=== PATIENT | male | born 1935 | race Caucasian/White ===

== ENCOUNTER 2024-05-18 18:34 | Inpatient (IN) | payer MEDICARE, MEDICAID, SELFPAY ==
[2024-05-18 18:34] VITALS: BP 139/74; PULSE 102; RESP 18; TEMP 37; O2SAT 94; BMI 25.0
--- NOTE | 2024-05-18 18:34 | XRR_ITS ---
PROCEDURE INFORMATION: Exam: XR Chest Exam date and time: 05/18/2024 7:14 PM Age: 89 years old Clinical indication: Shortness of breath and other: HTN; Additional info: CVA HTN TECHNIQUE: Imaging protocol: Radiologic exam of the chest. Views: 1 view. COMPARISON: No relevant prior studies available. FINDINGS: Lungs: The lungs are relatively clear. Pleural spaces: Unremarkable. No pleural effusion. No pneumothorax. Heart/Mediastinum: Calcified mediastinal and hilar lymph nodes. Bones/joints: Unremarkable. XR/XR chest 1V portable [id number] IMPRESSION: As above.
--- NOTE | 2024-05-18 18:34 | CTR_ITS ---
PROCEDURE INFORMATION: Exam: CT Head Without Contrast Exam date and time: 05/18/2024 8:06 PM Age: 89 years old Clinical indication: Stroke-like symptoms; Generalized weakness; Additional info: Symptoms of acute stroke, 24+ hrs old TECHNIQUE: Imaging protocol: Computed tomography of the head without contrast. Radiation optimization: All CT scans at this facility use at least one of these dose optimization techniques: automated exposure control; mA and/or kV adjustment per patient size (includes targeted exams where dose is matched to clinical indication); or iterative reconstruction. Other technique: STROKE PROTOCOL was implemented. COMPARISON: CT angio headneck* [id number] 05/18/2024 8:06 PM RADIATION DOSE METRICS: Total DLP (mGy-cm): 1180.7 FINDINGS: Brain: No hemorrhage. No edema. Moderate diffuse cerebral atrophy and sequela of chronic small vessel ischemic disease. Old lacunar infarcts noted in the basal ganglia. Old infarcts also noted in the right parietal and left frontal lobes. No mass effect. Cerebral ventricles: No ventriculomegaly. Paranasal sinuses: Visualized sinuses are unremarkable. No fluid levels. Mastoid air cells: Visualized mastoid air cells are well aerated. Bones: Unremarkable. No acute fracture. Soft tissues: Unremarkable. CT/CT head thrombolytic [id number] IMPRESSION: No acute intracranial abnormality. ASSESSMENT: ASPECTS ([place] Stroke Program Early CT Score) is 10.
--- NOTE | 2024-05-18 18:34 | CTR_ITS ---
PROCEDURE INFORMATION: Exam: CTA Head With Contrast, Arteriography Exam date and time: 05/18/2024 8:06 PM Age: 89 years old Clinical indication: Weakness; Additional info: CVA right sided deficit TECHNIQUE: Imaging protocol: Computed tomographic angiography of the head with contrast. Exam focused on the arteries. 3D rendering (Not supervised by radiologist): MIP and/or 3D reconstructed images were created by the technologist. Radiation optimization: All CT scans at this facility use at least one of these dose optimization techniques: automated exposure control; mA and/or kV adjustment per patient size (includes targeted exams where dose is matched to clinical indication); or iterative reconstruction. Contrast material: OMNIPAQUE 350; Contrast volume: 100 ml; Contrast route: INTRAVENOUS (IV); COMPARISON: CT head thrombolytic [id number] 05/18/2024 8:06 PM RADIATION DOSE METRICS: Total DLP (mGy-cm): 359 FINDINGS: ANTERIOR CIRCULATION: Right internal carotid artery: 50-75% atherosclerotic narrowing of the right internal carotid artery just before the carotid canal. The remaining right-sided internal carotid artery is patent. Right middle cerebral artery: No occlusion or significant stenosis. No aneurysm. Right anterior cerebral artery: The anterior circulation arises off the proximal M1 segment of the left MCA. There is appearance lack of the A3 segment of the left anterior cerebral artery due to variant anatomy versus occlusion. This may correspond to an area of hypoattenuation in the left medial frontal lobe. The right A3 segment of the anterior cerebral artery is dominant. The anterior cerebral artery is otherwise patent throughout their course. Left internal carotid artery: Intracranial segment is patent with no significant stenosis. No aneurysm. Left middle cerebral artery: The left middle cerebral artery is patent. Left anterior cerebral artery: Please see right anterior cerebral artery section. POSTERIOR CIRCULATION: Right vertebral artery: Please see the CT angio neck report. Left vertebral artery: Please see the CT angio neck report. Basilar artery: No occlusion or significant stenosis. No aneurysm. Right posterior cerebral artery: No occlusion or significant stenosis. No aneurysm. Left posterior cerebral artery: No occlusion or significant stenosis. No aneurysm. Please see same-day noncontrast CT head examination for noncontrast examination findings. PROCEDURE INFORMATION: Exam: CTA Neck With Contrast Exam date and time: 05/18/2024 8:06 PM Age: 89 years old Clinical indication: Weakness; Additional info: CVA right sided deficit TECHNIQUE: Imaging protocol: Computed tomographic angiography of the neck with contrast. Exam focused on the cervical segments of the vasculature. 3D rendering (Not supervised by radiologist): MIP and/or 3D reconstructed images were created by the technologist. Radiation optimization: All CT scans at this facility use at least one of these dose optimization techniques: automated exposure control; mA and/or kV adjustment per patient size (includes targeted exams where dose is matched to clinical indication); or iterative reconstruction. Contrast material: OMNIPAQUE 350; Contrast volume: 100 ml; Contrast route: INTRAVENOUS (IV); COMPARISON: CR (CHEST, ) 05/18/2024 7:14 PM RADIATION DOSE METRICS: Total DLP (mGy-cm): 359 FINDINGS: Right common carotid artery: No stenosis. No dissection or occlusion. Right internal carotid artery: 50-75% atherosclerotic narrowing of the right internal carotid artery just before the carotid canal. The remaining right-sided internal carotid artery is patent. Right external carotid artery: No occlusion or stenosis of the origin. Left common carotid artery: No stenosis. No dissection or occlusion. Left internal carotid artery: No stenosis of the extracranial segment. No dissection or occlusion. Left external carotid artery: No occlusion or stenosis of the origin. Right vertebral artery: The right vertebral artery arises off the subclavian. High-grade atherosclerotic narrowing of the origin of the right vertebral artery. Approximately 50% atherosclerotic narrowing of the V4 segment of the right vertebral artery. The right vertebral artery is otherwise patent throughout its course. Left vertebral artery: The left vertebral artery arises of the subclavian. Greater than 75% atherosclerotic narrowing of the origin of the left vertebral artery. Additional 50-75% atherosclerotic narrowing of the proximal V1 segment of the left vertebral artery. 50-75% atherosclerotic narrowing of the V4 segment of the left vertebral artery. The remaining left vertebral artery is patent throughout its course. Soft tissues: Normal. No significant soft tissue swelling. Bones/joints: Multilevel degenerative changes of the cervical spine. Lungs: Emphysema at the lung apices. Other findings: Cavernous carotid calcifications. CT/CT angio headneck* [id number] IMPRESSION: Abrupt cutoff of the left A2 segment of the anterior cerebral artery may relate to a variant anatomy versus occlusion. This may correspond to an area of hypoattenuation in the medial left frontal lobe. Consider follow up with MRI to evaluate the possibility of acute/subacute ischemia. 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 Remaining CT angio of the neck is patent without high-grade stenosis or occlusion. REFERENCES: NASCET CRITERIA. The degree of stenosis in the cervical segment of the internal carotid artery is based on NASCET criteria. Normal is no stenosis. Mild is less than 50% stenosis. Moderate is 50-69% stenosis. Severe is 70% to 99% stenosis. Total occlusion is no detectable patent lumen.
--- NOTE | 2024-05-18 18:38 | ED_ITS ---
HPI - Neuro Symptoms/Deficit 2 General: Chief Complaint: Neuro Symptoms/Deficit Stated Complaint: Stroke like symptoms Time Seen by Provider: 05/18/24 18:34 Source: EMS Mode of arrival: EMS Limitations: altered mental status History of Present Illness: Patient brought in by EMS from home with complaints of word salad speech right- sided facial droop and right-sided deficit with last known well being greater than 24 hours in nature. They think last known well was approximately 1000 - 1200 yesterday. Patient does have limited conversational ability. He can answer some yes/no questions but other yes/no questions he acts like he cannot think of the right answer, just looks at you, or just says words that do not make sense. Patient does know his first and last name. EMS stated patient should take metoprolol but he is not compliant. When EMS arrived he was in A- fib with RVR at a rate of about 160 bpm. He was given a bolus dose of approximately 17 mg of IV Cardizem and that brought his pulse down to the 80s for EMS. Upon arrival in the ER his pulse was 102. Patient has never been in her system before, we have no records of any kind. Review of Systems 2 General: Reports: ROS unobtainable due to medical condition and ROS unobtainable due to mental status NIH stroke score 2 NIHSS: Level Of Consciousness - 1a: 0 (Alert to self only) Level Of Consciousness Questions - 1b: One Correct (Knows patient's first and last name) Level Of Consciousness Commands - 1c: One Correct (Will make a fist with the left hand ) Best Gaze - 2: Normal (Unable to assess) Visual Gil - 3: No Visual Loss Facial Palsy - 4: Minor Paralysis (Minor right-sided facial droop) Motor Arm Right - 5: No Movement Motor Arm Left - 5: No Drift M otor Leg Right - 6: No Movement Motor Leg Left - 6: No Effort Against [place] Limb Ataxia - 7: Absent (Unable to assess patient unable to move right leg or follow commands with left leg) Sensory - 8: Normal (Unable to assess patient will not state yes or no if things feel the same) Best Language - 9: M ild/Moderate Aphasia Dysarthia - 10: Mild/Moderate Dysarthia Extinction And Inattention - 11: 0 (Unable to assess patient unable to follow most commands) Score: Total Score: 16 Physical Exam 2 Const: COMMON NORMALS: no acute distress, average body habitus, patient oriented x3 (Oriented to person only), no limitations, healthy appearing, alert and well nourished HENMT: COMMON NORMALS: normocephalic, atraumatic, hearing grossly normal bilaterally, external ears normal, Normal external nose present, moist oral mucous membranes and oropharynx normal HEAD & SCALP: normocephalic and atraumatic NOSE: Normal external nose present EXTERNAL EAR: Yes external ears normal Eye: COMMON NORMALS: Equal, round and reactive pupils present, EOMs intact bilaterally, conjunctivae normal and no scleral icterus CONJUNCTIVA: Yes conjunctivae normal PUPIL: Yes Equal, round and reactive pupils present Neck/C-Spine: COMMON NORMALS: full ROM, no lymphadenopathy, supple, no meningeal signs, no JVD and Thyroid normal THYROID: Thyroid normal Chest: COMMONS NORMALS: normal inspection of the chest and normal palpation of entire chest wall Resp: COMMON NORMALS: normal respiratory effort, No retractions, No use of accessory muscles and clear to auscultation bilaterally AUSCULTATION: clear to auscultation bilaterally Cardio: COMMON NORMALS: no JVD, regular rate, regular rhythm, S1 normal heart sound present, S2 normal heart sound present, No gallops present (Cardio), No clicks present (Cardio), No murmurs present (Cardio) and No rub (Cardio) R ATE: regular rate RHYTHM: regular rhythm HEART SOUNDS: S1 normal heart sound present and S2 normal heart sound present GI: COMMON NORMALS: Normal to inspection, nondistended, normoactive bowel sounds present, Soft to palpation, non-tender, No hepatosplenomegaly present and no masses PALPATION: Yes Soft to palpation and Yes No hepatosplenomegaly present Extremity: OTHER: Able to hold of left upper extremity against gravity, able to move left lower extremity but not hold it up against gravity, unable to move right upper or lower extremity. Neuro: COMMON NORMALS: patient oriented x3 (Oriented to person only) S ENSORIUM/ORIENTATION: Yes alert MENINGEAL SIGNS: Yes no meningeal signs Course 2 Vital Signs: Vital signs: Vital Signs Temperature 98.6 F 05/18/24 18:34 Pulse Rate 120 H 05/18/24 22:57 Respiratory Rate 23 H 05/18/24 22:57 Blood Pressure 136/106 05/18/24 22:57 Pulse Oximetry 97 03/26/25 22:57 Oxygen Delivery Me thod Room Air 05/18/24 22:57 MDM - Neuro Symptoms/Deficit Medical Decision Making Patient presents to the ER by EMS with obvious right dense hemiparesis right facial droop and speech issues. He was given at least a 16 NIH although part of it is due to him not being able to follow commands sometimes or answer questions appropriately. Stroke workup was obtained, head CT was negative, head CTA showed possible occlusion versus variant anatomy, Dr. Sanchez was consulted and agreed to place the patient in observation however he did want us to talk with [facility] neurology. [facility] neurology was called and they will be giving us a call back.Dr MONTOYA teleneurology called back I reviewed this case with her. She says the only segment noted to be occluded or an anatomical variant is a very small segment that is not conducive to intervention. Patient is also not a candidate for intervention since has been more than 24 hours. She would not recommend transfer and would recommend admission here just for further workup. Lab Data 05/18/24 18:44 05/18/24 18:44 Radiology Impressions Chest X-Ray 05/18/24 18:34 IMPRESSION: As above. Head CT 05/18/24 18:34 IMPRESSION: No acute intracranial abnormality. ASSESSMENT: ASPECTS ([place] Stroke Program Early CT Score) is 10. ADDENDUM: 05/18/242042 Chico Coleman acknowledged receipt of report at 05/18/2024 8:41 PM CDT. Head/Neck CTA 05/18/24 18:34 IMPRESSION: Abrupt cutoff of the left A2 segment of the anterior cerebral artery may relate to a variant anatomy versus occlusion. This may correspond to an area of hypoattenuation in the medial left frontal lobe. Consider follow up with MRI to evaluate the possibility of acute/subacute ischemia. 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 Remaining CT angio of the neck is patent without high-grade stenosis or occlusion. REFERENCES: NASCET CRITERIA. The degree of stenosis in the cervical segment of the internal carotid artery is based on NASCET criteria. Normal is no stenosis. Mild is less than 50% stenosis. Moderate is 50-69% stenosis. Severe is 70% to 99% stenosis. Total occlusion is no detectable patent lumen. ADDENDUM: 05/18/242120 THIS REPORT CONTAINS FINDINGS THAT MAY BE CRITICAL TO PATIENT CARE. The findings were verbally communicated via telephone conference with Chico Coleman at 9:19 PM CDT on 05/18/2024. The findings were acknowledged and understood. Laboratory Results WBC 9.81 10^3/uL (3.29-11.43) 05/18/24 18:44 RBC 5.69 10^6/uL (3.85-5.65) H 05/18/24 18:44 Hgb 16.40 g/dL (11.27-16.99) 05/18/24 18:44 Hct 51.1 % (37-53) 05/18/24 18:44 MCV 89.8 fl (82-101) 05/18/24 18:44 MCH 28.8 pg (27-33) 05/18/24 18:44 MCHC 32.1 g/dL (30-55) 05/18/24 18:44 RDW 13.9 % (12.1-15.1) 05/18/24 18:44 Plt Count 310 10^3/cmm (157-399) 05/18/24 18:44 MPV 10.0 fL (7.4-10.4) 05/18/24 18:44 Neut % (Auto) 81.7 % 05/18/24 18:44 Lymph % (Auto) 12.4 % 05/18/24 18:44 [place] % (Auto) 5.1 % 05/18/24 18:44 Eos % (Auto) 0.2 % 05/18/24 18:44 Baso % (Auto) 0.3 % 05/18/24 18:44 Neut # (Auto) 8.01 10^3/uL (1.8-7.7) H 05/18/24 18:44 Lymph # (Auto) 1.2 10^3/uL (0.8-4.8) 05/18/24 18:44 [place] # (Auto) 0.5 10^3/uL (0.2-0.9) 05/18/24 18:44 Eos # (Auto) 0.0 10^3/uL (0.0-0.8) 05/18/24 18:44 Baso # (Auto) 0.0 10^3/uL (0.0-0.1) 05/18/24 18:44 Nucleated RBC % (auto) 0 % 05/18/24 18:44 Nucleated RBCs # 0.0 /100WBC 05/18/24 18:44 PT 15.00 SECONDS (12.1-14.9) H 05/18/24 18:44 INR 1.10 (0.8-1.2) 05/18/24 18:44 APTT 31.0 SECONDS (23.9-36.7) 05/18/24 18:44 Sodium 139 mmol/L (136-145) 05/18/24 18:44 Potassium 4.7 mmol/L (3.5-5.1) 05/18/24 18:44 Chloride 103 mmol/L (98-107) 05/18/24 18:44 Carbon Dioxide 21 mmol/L (22-29) L 05/18/24 18:44 Anion Gap 19.7 (5-19) H 05/18/24 18:44 BUN 31 mg/dL (8-23) H 05/18/24 18:44 Creatinine 1.3 mg/dL (0.7-1.2) H 05/18/24 18:44 GFR Calculation Not Reportable 05/18/24 18:44 Glucose 160 mg/dL (65-115) H 05/18/24 18:44 POC Glucose 187 mg/dL (70-110) H 05/18/24 19:14 Calculated Osmolality 298 mOsm/kg (285-295) H 05/18/24 18:44 Calcium 9.6 mg/dL (8.5-10.5) 05/18/24 18:44 Magnesium 2.6 mg/dL (1.7-2.3) H 05/18/24 18:44 Total Bilirubin 0.8 mg/dL (0.15-1.2) 05/18/24 18:44 AST 21 U/L (0-40) 05/18/24 18:44 ALT 19 U/L (0-41) 05/18/24 18:44 Alkaline Phosphatase 74 U/L (40-130) 05/18/24 18:44 Troponin T Baseline 35 ng/L (0-15) H 05/18/24 18:44 Troponin T 120 Minute 28.48 ng/L (0-15) H 05/18/24 20:42 Delta Troponin T -6.52 ABS# (0-10) L 05/18/24 20:42 Total Protein 7.4 g/dL (6.6-8.7) 05/18/24 18:44 Albumin 4.1 g/dL (3.5-5.2) 05/18/24 18:44 Globulin 3.3 g/dL (1.3-4.6) 05/18/24 18:44 TSH 5.58 uIU/mL (0.27-4.20) H 05/18/24 18:44 Urine Color Dark yellow (Yellow) A 05/18/24 20: Urine Appearance Clear (CLEAR) 05/18/24 20: Urine pH 5.0 (5-7) 05/18/24 20:30 Ur Specific [place] 1.030 (1.005-1.030) 05/18/24 20: Urine Protein 2+ (Negative) A 05/18/24 20:30 Urine Glucose (UA) Negative (Normal) 05/18/24 20:30 Urine Ketones Trace (Negative) 05/18/24 20: Urine Blood Trace (Negative) A 05/18/24 20: Urine Nitrate Negative (Negative) 05/18/24 20: Urine Bilirubin 1+ (Negative) H 05/18/24 20:30 Urine Urobilinogen 1.0 mg/dL (Negative) 05/18/24 20:30 Ur Leukocyte Esterase Negative (Negative) 05/18/24 20:30 Urine RBC 0-2 /hpf (0-2) 05/18/24 20:30 Urine WBC 0-5 /hpf (0-5) 05/18/24 20:30 Ur Squamous Epith Cells 0-5 /hpf (0-5) 05/18/24 20: Amorphous Sediment Not Reportable 05/18/24 20: Urine Bacteria None seen /hpf (NONE) 05/18/24 20: Hyaline Casts 7.42 /lpf 05/18/24 20:30 Salicylates < 0.3 mg/dL (3-10) L 05/18/24 18:44 Urine Opiates Screen Negative ng/mL (Negative) 05/18/24 20:30 Acetaminophen < 5.0 ug/mL (10-30) L 05/18/24 18:44 Ur Barbiturates Screen Negative ng/mL (Negative) 05/18/24 20:30 Ur Phencyclidine Scrn Negative ng/mL (Negative) 05/18/24 20:30 Ur Amphetamines Screen Negative ng/mL (Negative) 05/18/24 20:30 U Benzodiazepines Scrn Negative ng/mL (Negative) 05/18/24 20:30 Urine Cocaine Screen Negative ng/mL (Negative) 05/18/24 20:30 U Marijuana (THC) Screen Negative ng/mL (Negative) 05/18/24 20:30 Ethyl Alcohol < 10 mg/dL (0-10) 05/18/24 18:44 All radiology interpretation(s) finalized by discharge Discharge Plan Discharge Patient Disposition: Placed in Observation Clinical Impression: Cerebrovascular accident, Atrial fibrillation with rapid ventricular response Coding Level of Care Code ED [employer] Director for Balaji De La Cruz
[2024-05-18 18:40] VITALS: BP 139/74; PULSE 92; RESP 18; O2SAT 96
--- NOTE | 2024-05-18 18:40 | ECG_ITS ---
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 Measurements Intervals [place] Rate: 87 P: 0 [place]: 0 QRS: 2 QRSD: 102 T: 178 QT: 410 QTc: 496 Interpretive Statements ATRIAL FIBRILLATION WITH ABERRANT CONDUCTION OR VENTRICULAR PREMATURE COMPLEXES MODERATE VOLTAGE CRITERIA FOR LVH, CONSIDER NORMAL VARIANT [MEETS CRITERIA IN ONE OF: R(aVL), S(V1), R(V5), R(V5/V6)+S(V1)] ST DEVIATION AND MODERATE T-WAVE ABNORMALITY, CONSIDER ANTEROLATERAL ISCHEMIA [-0.1+ mV T-WAVE IN V3-V6] No previous ECG available for comparison Electronically Signed On 05-18-2024 19:24:44 CDT by Tiffanie Giraldo M.D. [email or web address]
[2024-05-18 18:52] LABS: Basophils % 0.3 %; Eosinophils % 0.2 %; Hematocrit 51.1 % (37-53); Lymphocytes # 1.2 10^3/uL (0.8-4.8); Lymphocytes % 12.4 %; Mean Corpuscular HGB Conc 32.1 g/dL (30-55); Mean Corpuscular Hemoglobin 28.8 pg (27-33); Mean Corpuscular Volume 89.8 fl (82-101); Monocytes # 0.5 10^3/uL (0.2-0.9); Monocytes % 5.1 %; Neutrophils # 8.01 10^3/uL (1.8-7.7); Neutrophils % 81.7 %; Nucleated Red Blood Cells % 0 %; Platelet Count 310 10^3/cmm (157-399); Red Blood Count 5.69 10^6/uL (3.85-5.65); Red Cell Distribution Width 13.9 % (12.1-15.1); White Blood Count 9.81 10^3/uL (3.29-11.43)
[2024-05-18 19:06] VITALS: BP 139/74; PULSE 92; RESP 30; O2SAT 92
[2024-05-18 19:08] LABS: Troponin(5th) Baseline 35 ng/L (0-15)
[2024-05-18 19:20] LABS: Glucose Point of Care 187 mg/dL (70-110)
[2024-05-18 19:29] LABS: Alanine Aminotransferase 19 U/L (0-41); Albumin Level 4.1 g/dL (3.5-5.2); Alkaline Phosphatase 74 U/L (40-130); Anion Gap 19.7 (5-19); Aspartate Amino Transferase 21 U/L (0-40); Blood Urea Nitrogen 31 mg/dL (8-23); Calcium 9.6 mg/dL (8.5-10.5); Carbon Dioxide 21 mmol/L (22-29); Chloride 103 mmol/L (98-107); Creatinine Clr Calc Pharmacy 37.4272; Globulin 3.3 g/dL (1.3-4.6); Glucose 160 mg/dL (65-115); Magnesium 2.6 mg/dL (1.7-2.3); Osmolality Calculated 298 mOsm/kg (285-295); Potassium 4.7 mmol/L (3.5-5.1); Sodium 139 mmol/L (136-145); Thyroid Stimulating Hormone 5.58 uIU/mL (0.27-4.20); Total Bilirubin 0.8 mg/dL (0.15-1.2); Total Protein 7.4 g/dL (6.6-8.7)
[2024-05-18 19:32] LABS: Acetaminophen < 5.0 ug/mL (10-30); Alcohol Level < 10 mg/dL (0-10); Salicylate < 0.3 mg/dL (3-10)
[2024-05-18] MEDS: iohexol 350 mg/mL 500 mL Btl (per mL) IV (20:11)
--- NOTE | 2024-05-18 20:36 | ECG_ITS ---
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 Measurements Intervals [facility] Rate: 105 P: 0 ID: 0 QRS: 44 QRSD: 166 T: 114 QT: 424 QTc: 562 Interpretive Statements ATRIAL FIBRILLATION WITH RAPID VENTRICULAR RESPONSE LEFT BUNDLE BRANCH BLOCK [120+ ms QRS DURATION, 80+ ms Q/S IN V1/V2, 85+ ms R IN I/aVL/V5/V6] Compared to ECG 05/18/2024 18:40:45 Left bundle-branch block now present Ventricular premature complex(es) no longer present Aberrant conduction of supraventricular beat(s) no longer present T-wave abnormality no longer present Possible ischemia no longer present Electronically Signed On 05-19-2024 22:26:35 CDT by Tiffanie Giraldo M.D. [email or web address]
[2024-05-18 20:41] LABS: Bilirubin Urine 1+ (Negative); Blood Urine Trace (Negative); Glucose Urine UA Negative (Normal); Ketones Urine Trace (Negative); Leukocyte Esterase Urine Negative (Negative); Nitrate Urine Negative (Negative); Protein Urine 2+ (Negative); Urine Appearance Clear (CLEAR); Urine Color Dark Yellow (Yellow)
[2024-05-18 20:45] LABS: Add Urine Microscopic? YES; Bacteria Urine None Seen /hpf; Hyaline Casts Urine 7.42 /lpf; RBC Urine 0-2 /hpf (0-2); Squamous Epithelial Cell Urine 0-5 /hpf (0-5); WBC Urine 0-5 /hpf (0-5)
[2024-05-18 20:53] VITALS: BP 121/91; PULSE 105; RESP 18; O2SAT 95
[2024-05-18 21:02] LABS: Amphetamines Screen Urine Negative (Negative); Barbiturates Screen Urine Negative (Negative); Benzodiazepines Screen Urine Negative (Negative); Cocaine Screen Urine Negative (Negative); Opiate Screen Urine Negative (Negative); PCP Screen Urine Negative (Negative); THC Screen Urine Negative (Negative)
[2024-05-18 21:15] LABS: Troponin 5 2HR 28.48 ng/L (0-15)
[2024-05-18 21:26] LABS: Troponin 5 2HR Delta -6.52 ABS# (0-10)
[2024-05-18 21:49] VITALS: BP 152/94; PULSE 111; RESP 17; O2SAT 94
[2024-05-18 22:57] VITALS: BP 136/106; PULSE 120; RESP 23; O2SAT 97
--- NOTE | 2024-05-18 23:34 | P.HP_ITS ---
Providers/Chief Complaint 2 Chief Complaint: Stroke like symptoms History of Present Illness Luis Morales is a 89 year old male presented to the hospital via EMS for concerns related to stroke right-sided weakness and word salad. Patient not able to provide much history. I called his son to get more information. Son is stating that he has not seen a doctor in last 2 years, he is not compliant with his medications, as per the son he was supposed to be on some heart medication and high blood pressure pills. Son is not endorsing if Luis ever had a heart attack or stroke in the past. He lives alone and manages daily activities on his own. Son is very confident stating that down has not been taking any medications at all that were prescribed to him by the PCP. Son is stating that he saw his dad on 05/17 between 10 and 12 PM in his usual state of health, today when he checked on him around 4 PM he was slouched in his couch leaning towards one side with a very stiffened body posture. When his son asked him if he had his coffee today or tried to get out of the couch: Patrice replied: I Do not know . Workup in the ER consistent with hypertension, A-fib RVR, CTA head and neck showing abrupt cut off of left A2 segment anterior cerebral artery variant anatomy versus occlusion. Last known well time was yesterday as per the family, he was deemed not a suitable candidate for TNKase or arthrectomy During my evaluation patient is very agitated and asked me to leave the room, however due to max encounter I was able to do neuroexam: Patient does not have good strength on right side right-sided hemiparesis, he is using his left arm and left leg without any difficulty, I did not see any pupil asymmetry, patient is not able to follow commands completely, has a Alejandre catheter In A-fib RVR heart rate around 130s with hypertension I requested IV labetalol 10 mg IV push and requested CSU bed in case he would require Cardizem drip if heart rate did not improve Review of Systems 2 General: Reports: ROS unobtainable due to medical condition and ROS unobtainable due to mental status Const: Reports: fever(s) Medications/Allergies Allergies Allergy/AdvReac Type Severity Reaction Status Date / Time No Known Drug Allergies Allergy Unknown Verified 05/19/24 00:21 PFSH Acute 2 PFSH: Medical History (Updated 05/19/24 @ 00:23 by Enoc Sanchez MD) Hypertension Surgical History (Updated 05/19/24 @ 00:23 by Enoc Sanchez MD) No pertinent past surgical history Vitals/I&O/Wt Last Vital Signs Temp 98.6 F 05/18/24 18:34 Pulse 120 H 05/18/24 22:57 Resp 23 H 05/18/24 22:57 BP 136/106 05/18/24 22:57 Pulse Ox 97 05/18/24 22:57 O2 Del Method Room Air 05/18/24 22:57 Weight last 48 hrs Weight 72.575 kg Physical Exam 2 Narrative: Word salad Right-sided weakness Pupils symmetrical Able to move left upper and lower extremity without any difficulty Decreased tone of right side Verbally redirectable but not comprehending commands Agitated A-fib RVR Hypertensive Lower extremity trace edema Tachypneic currently saturating 97% on room air Abdomen soft Alejandre catheter in place Data 05/18/24 18:44 05/18/24 18:44 A&P Assessment and plan (1) Cerebrovascular accident: (2) Atrial fibrillation with rapid ventricular response: Plan Right-sided weakness Acute CVA Last known well time around noon 05/17 Not on a candidate of TNKase or arthrectomy Concern for thromboembolic phenomenon Requested hemoglobin A1c lipid panel patient has not seen PCP in last [address] Will do pur?ed diet for now Requested echo with bubble study Also requesting TSH and B12& Free T4 Permissive hypertension Statins high intensity added along Plavix A-fib RVR Labetalol 10 mg IV push requested Admit to CSU May need Cardizem drip Will follow-up with echo report Will keep patient on therapeutic Lovenox Considering active stroke will use Plavix alone therapeutic Lovenox for now Tachypnea Lower extremity trace edema: Requested echo with BNP Tachyarrhythmia induced CHF? As per the son no previous history of stroke or [place] Troponin trending down EKG showing A-fib RVR with left bundle branch block Chest x-ray does not show significant vascular congestion or edema hold off diuretics for now Full code Pur?ed diet Depending on PT and ST evaluation decision will be made if patient would require short-term inpatient rehab versus home health Most of information provided by his son patient is confused and agitated Alejandre catheter has been placed: No signs of UTI PDMP PDMP Reviewed: Not Reviewed Attestations 2 Medical Necessity Statement*: More than 2 midnights anticipated for management evaluation of stroke, A-fib RVR, rule out CHF Diagnoses Cerebrovascular accident I63.9 Atrial fibrillation with rapid ventricular response I48.91
[2024-05-19] VITALS (12 sets, daily range): BP systolic 98–152; BP diastolic 65–104; PULSE 78–113; RESP 14–22; TEMP 36.6–36.8; O2SAT 95–98; BMI 25.0
[2024-05-19] MEDS: labetalol 5 mg/mL SDV 20mL 10 MG IVP (00:19)
--- NOTE | 2024-05-19 00:36 | ECG_ITS ---
[facility]: 2024-[facility]19 Pat Name: Luis Morales Department: Room: 261 Gender: Male Crnp: : 1935 Requested By: Chico Coleman Order Number: [id number] Tiffanie MD: Tiffanie Giraldo M.D. Measurements Intervals [place] Rate: 94 P: 0 MN: 0 QRS: 31 QRSD: 170 T: 116 QT: 443 QTc: 557 Interpretive Statements ATRIAL FIBRILLATION LEFT BUNDLE BRANCH BLOCK [120+ ms QRS DURATION, 80+ ms Q/S IN V1/V2, 85+ ms R IN I/aVL/V5/V6] Compared to ECG 05/18/2024 20:41:21 No significant changes Electronically Signed On 05-19-2024 22:26:18 CDT by Tiffanie Giraldo M.D. [email or web address]
[2024-05-19 01:10] LABS: Chol HDL Ratio 3.56 mg/dL (1.0-5.00); Cholesterol 171 mg/dL (0-200); Free T4 Free Thyroxine 1.38 ng/dL (0.82-1.77); HDL Cholesterol 48 mg/dL (60-100); LDL Cholesterol Calculated 113 mg/dL (50-129); LDL HDL Ratio 2.35 RATIO (0.00-3.22); NT Pro B Type Natriuretic Pept 13922 pg/mL (0-450); Triglycerides 52 mg/dL (0-150)
[2024-05-19 01:12] LABS: Estmated Average Glucose 134; Hemoglobin A1C 6.3 % (4.0-6.0)
[2024-05-19 01:47] LABS: Vitamin B12 894 pg/mL (232-1245)
[2024-05-19 04:04] LABS: Anion Gap 16.7 (5-19); Blood Urea Nitrogen 31 mg/dL (8-23); Calcium 9.2 mg/dL (8.5-10.5); Carbon Dioxide 23 mmol/L (22-29); Chloride 107 mmol/L (98-107); Creatinine Clr Calc Pharmacy 40.5462; Glucose 153 mg/dL (65-115); Magnesium 2.5 mg/dL (1.7-2.3); Osmolality Calculated 304 mOsm/kg (285-295); Phosphorus 2.9 mg/dL (2.5-4.5); Potassium 4.7 mmol/L (3.5-5.1); Sodium 142 mmol/L (136-145)
--- NOTE | 2024-05-19 06:00 | MR_ITS ---
WS: [id number] MRI BRAIN WITHOUT CONTRAST HISTORY: CVA COMPARISON: CT 05/18/2024 TECHNIQUE: Diffusion imaging, multiplanar T1, T2 and FLAIR imaging obtained. Acute infarct involving a portion of the LEFT paramedian frontal cerebral cortex above the lateral ventricles. No associated hemorrhage. No infarct in the anterior corpus callosum or at the caudate head. Additional bilateral chronic lacunar 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. Moderate atrophy and small vessel disease. Moderate cerebellar atrophy. Mildly prominent ventricles and extra-axial spaces on the basis of atrophy. No inferior displacement of cerebellar tonsils. The sella turcica and pituitary gland are unremarkable. Dural venous sinuses and [place] demonstrate no abnormality on this unenhanced studies. Paranasal sinuses: Mild mucoperiosteal thickening RIGHT maxillary sinus and a small air-fluid level. Remaining sinuses are clear. Mastoid air cells: Normal. Calvarium and scalp: Intact. MR/MR head wo con* [id number] IMPRESSION: 1. Acute LEFT paramedian frontal cerebral cortex infarct. No hemorrhage. 2. Additional chronic numerous lacunar infarcts in the basal ganglia and cauda te heads. 3. Cerebral and cerebellar atrophy and moderate small vessel disease.
[2024-05-19] MEDS: clopidogrel 75 mg Tablet PO (08:37)
[2024-05-19] MEDS: metoprolol tartrate 25 mg Tablet 50 MG PO ×2 (08:37→21:10)
[2024-05-19] MEDS: atorvastatin 40 mg Tablet 80 MG PO (08:37)
--- NOTE | 2024-05-19 11:17 | P.PN_ITS ---
Subjective 2 Subjective: seen this am pt returned from mri results not available yet he is sitting up in bed, knows his name date of , knows he is in [facility] however does not know who the president is or what year it is he repeats I dont know for several questions asked does not follow commands right away however after asking a few times he eventually follows commands. he was able to move his left side on que however unable to move right side at all. does not feel senstation right upper and lower extremity either does have a slight right facial droop as well . Vitals/I&O/Wt Last Vital Signs Temp 98.2 F 05/19/24 07:49 Pulse 97 05/19/24 07:53 Resp 22 H 05/19/24 07:53 BP 145/82 05/19/24 07:49 Pulse Ox 96 05/19/24 07:53 O2 Del Method Room Air 05/19/24 07:53 05/18/24 05/19/24 05/19/24 22:59 06:59 14:59 Intake Total 0 / 0 360 / 360 Output Total 300 / 300 Balance -300 / -300 360 / 360 Weight last 48 hrs Weight 68.7 kg Weight 54.431 kg Weight 72.575 kg Weight 72.575 kg Physical Exam 2 Narrative: Word salad Right-sided flaccidity, unable to fully follow commands Pupils symmetrical Able to move left upper and lower extremity without any difficulty Decreased tone of right side, unable to move right now Verbally redirectable but not comprehending commands HR controlled Lower extremity trace edema on room air Abdomen soft Alejandre catheter in place slight right facial droop, unable to fully test for cranial nerves as pt unable to follow commands Data 05/18/24 18:44 05/19/24 03:15 A&P Assessment and plan (1) Cerebrovascular accident: (2) Atrial fibrillation with rapid ventricular response: Plan Right-sided weakness Acute CVA Last known well time around noon 05/17 Not on a candidate of TNKase or arthrectomy Concern for thromboembolic phenomenon Requested hemoglobin A1c lipid panel patient has not seen PCP in last [address] Will do pur?ed diet for now Requested echo with bubble study Also requesting TSH and B12& Free T4 Permissive hypertension Statins high intensity added along Plavix A-fib RVR Labetalol 10 mg IV push requested Admit to CSU May need Cardizem drip Will follow-up with echo report Will keep patient on therapeutic Lovenox Considering active stroke will use Plavix alone therapeutic Lovenox for now Tachypnea Lower extremity trace edema: Requested echo with BNP Tachyarrhythmia induced CHF? As per the son no previous history of stroke or [place] Troponin trending down EKG showing A-fib RVR with left bundle branch block Chest x-ray does not show significant vascular congestion or edema hold off diuretics for now Full code Pur?ed diet Depending on PT and ST evaluation decision will be made if patient would require short-term inpatient rehab versus home health Most of information provided by his son patient is confused and agitated Alejandre catheter has been placed: No signs of UTI 05/19/2024 seen this am failed swallow evaluation will order modified barium swallow in Am echo pending pt/ot mri results pending patient may require inpatient rehab bp 140/80's. continue to monitor keep npo for now PDMP PDMP Reviewed: Not Reviewed Attestations 2 Medical Necessity Statement*: More than 2 midnights anticipated for management evaluation of stroke, A-fib RVR, rule out CHF Diagnoses Cerebrovascular accident I63.9 Atrial fibrillation with rapid ventricular response I48.91
--- NOTE | 2024-05-19 13:48 | PC.NURSE ---
Patient refusing to have Lovenox administered telling this nurse NO while pushing my hand away. Informed Dr Delgadillo.
--- OUTSIDE RECORDS SUMMARY | 2024-05-19 19:36 | XMS_ITS | Encounter Summary ---
Author Organization [facility] Address [address] [place] [address] Care Team Providers Care Flight Line Service Attendant Name Role Phone Anatoliy Barbosa MD Primary Care Provider [phone] Reason for Visit * Reason Onset Date Comments Swetha Director Digital Marketing 05/18/2024 Encounter Details Date Type Department Care Team (Late st Contact Info) Description 05/18/2024 Telephone [facility] CARE [id number] [place] [phone] Aditi Waller RN [facility] Director Digital Marketing Social History Tobacco Use Types Packs/Day Years Used Date Smoking Tobacco: Never Passive Smoke Exposure: Never Smokeless Tobacco: Never Alcohol Use Standard Drinks/Week Comments No 0 (1 standard drink = 0.6 oz pur e alcohol) Feeling Safe Answer Date Recorded Are you in a relationship wi th someone who hurts you emotionally and/or physically? 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 States pt is unable to speak Pt is typically alert and oriented takes daily walks. Today unable to speak, was incontinent of urine, which is atypical. Reports pt is only able to move L arm. Pt not able to move R arm. Daughter sonia reports R facial droop. No signs of fall Hx of A-fib, no thinners, ASA 325, but family states he is noncompliant with meds. LKN 05/16/24 around 1700 Vitals and Assessment: Pt not able to speak, when DIL informed pt of need to call EMS, pt shaking head no, but unable to speak Plan: Discussed with LITIGATION MANAGER Selina, advised to call 911 for EMS transport to hospital Discussed concerning signs/symptoms that would indicate need for repeat evaluation. Patient is agreeable with this plan of care, all questions and concerns have been addressed. Visit was completed by phone unless otherwise noted with video/screen shot images within the note. KAYLA Allan Virtual Unknown time of potential right sided stroke onset as pt lives alone and found lying on floor in home 48 hours after last speaking with family- recommend call to EMS to initiate stroke protocol - DILcalled EMS. Chart and note was reviewed by LAURA Yen and agree with plan of care. Araceli Nurse Practitioner Swetha Virtual documented in this encounter Plan of Treatment Not on file documented as of this encounter Visit Diagnoses Not on filedocumented in this encounter Care Teams Flight Line Service Attendant Relationship Specialty Start Date End Date Anatoliy Barbosa MD [address] [phone] PCP - General Family Practice 05/11/23 documented as of this encounter
--- OUTSIDE RECORDS SUMMARY | 2024-05-19 19:36 | XMS_ITS | Clinical Summary ---
Author Organization [email or web address] Address [address] Mohan: Epic Prelude ADT [place] [address] Care Team Providers Care Wedding Planning Internship Name Role Phone Anatoliy Barbosa MD Primary Care Provider [phone] Allergies No known active allergies Medications potassium chloride (KLOR-CON) 20 mEq Extended Release tabletIndication s:Congestive heart failure, unspecified HF chronicity, unspecified heart failure type (CMS/HCC) Take 1 Tablet (20 mEq) by mouth daily. 90 Tablet 3 4 Active Additional Information Patient not taking.Reported on 11/11/2023 aspirin (ECOTRIN EC) 325 mg Tablet, Delayed Release (E.C.) Take 325 mg by mouth daily. Active furosemide (LASIX) 20 mg tabletIndication s:Congestive heart failure, unspecified HF chronicity, unspecified heart failure type (CMS/HCC) Take 1 tablet by mouth twice daily 200 Tablet 2 4 Active metoprolol tartrate (LOPRESSOR) 25 mg tabletIndication s:New onset a-fib (CMS/HCC) Take 1 tablet by mouth twice daily 200 Tablet 2 4 Active Active Problems Problem Noted Date Diagnosed Date Chronic congestive heart failure 08/13/2023 PAF (paroxysmal atrial fibrillation) 08/13/2023 Encounters Date Type Department Care Team Description 05/18/2024 Telephone [facility] [address] [place] [phone] Aditi Waller RN [facility] Anesthesiologist Physician 05/11/2024 External Device Data [facility] ABSTRACTION Provider, Abstract 04/13/2024 External Device Data [facility] ABSTRACTION Provider, Abstract 03/22/2024 External Device Data [facility] ABSTRACTION Provider, Abstract 03/22/2024 External Device Data [facility] ABSTRACTION Provider, Abstract 03/22/2024 External Device Data [facility] ABSTRACTION Provider, Abstract 03/09/2024 External Device Data [facility] ABSTRACTION Provider, Abstract from Last 3 Months Social History Tobacco Use Types Packs/Day Years Used Date Smoking Tobacco: Never Passive Smoke Exposure: Never Smokeless Tobacco: Never Tobacco Cessation:Counseling Given: No Alcohol Use Standard Drinks/Week Comments No 0 (1 standard drink = 0.6 oz pur e alcohol) Feeling Safe Answer Date Recorded Are you in a relationship wi th someone who hurts you emotionally and/or physically? 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 Gender Identity Not on file Sexual Orientation Not on file Last Filed Vital Signs Vital Sign Reading Time Taken Comments Blood Pressure 136/100 11/11/2023 1:44 PM CDT Pulse 76 11/11/2023 1:23 PM CDT Temperature 36.3 ??C (97.4 ??F) 11/11/2023 1:23 PM CD T Respiratory Rate 20 11/11/2023 1:23 PM CDT Oxygen Saturation 100% 11/11/2023 1:23 PM CDT Inhaled Oxygen Concentration - - Weight 70.9 kg (156 lb 6.4 oz) 11/11/2023 1:23 P M CDT Height 172.7 cm (5' 8 ) 11/11/2023 1:23 PM CDT Body Mass Index 23.78 11/11/2023 1:23 PM CDT Plan of Treatment Health Maintenance Due Date Last Done Comments DTAP/TDAP/TD VACCINES (1 - Tdap) 1954 PNEUMOCOCCAL VACCINE 50+ YEARS (1 of 2 - PCV) 01/04/19 54 ZOSTER VACCINE (1 of 2) 1985 RSV VACCINE (60+ or ) (1 - 1-dose 75+ series) 2010 INFLUENZA VACCINE Completed 11/11/2023 Insurance MEDICAID [place] MEDICARE PART A [facility] ONLY Care Teams Wedding Planning Internship Relationship Specialty Start Date End Date Anatloiy Barbosa MD [address] [facility] [address] [place] [phone] PCP - General Family Practice 05/11/23
--- OUTSIDE RECORDS SUMMARY | 2024-05-19 19:36 | XMS_ITS | Clinical Summary ---
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 Gender Identity Not on file Sexual Orientation Not on file Last Filed Vital Signs Vital Sign Reading Time Taken Comments Blood Pressure 128/87 05/03/2014 9:50 AM CDT Pulse 70 05/03/2014 9:50 AM CDT Temperature 36.2 ??C (97.1 ??F) 05/03/2014 9:50 AM CD T Respiratory Rate 20 05/03/2014 9:50 AM CDT Oxygen Saturation 97% 05/03/2014 9:50 AM CDT Inhaled Oxygen Concentration - - Weight 78 kg (172 lb) 05/03/2014 8:45 AM CDT Height 172.7 cm (5' 8 ) 05/03/2014 8:45 AM CDT Body Mass Index 26.15 05/03/2014 8:45 AM CDT Plan of Treatment Health Maintenance Due Date Last Done Comments DTAP/TDAP/TD VACCINES (1 - Tdap) 1954 PNEUMOCOCCAL VACCINE 50+ YEARS (1 of 1 - PCV) 01/04/19 85 ZOSTER VACCINE (1 of 2) 1985 RSV VACCINE (60+ or ) (1 - 1-dose 75+ series) 2010 INFLUENZA VACCINE (#1) 2023 Insurance MEDICARE PART A HOSPITAL ONLY MEDICARE PART A HOSPITAL ONLY MEDICAID [place]
--- OUTSIDE RECORDS SUMMARY | 2024-05-19 19:36 | XMS_ITS | Encounter Summary ---
Author Organization [employer] Address 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
--- NOTE | 2024-05-19 23:45 | USCV_ITS ---
Luis Morales Age: 89 Gender: M : 1935 Exam Date: 05/19/2024 02:25 Ordering Phys: Enoc Sanchez MD Technologist: MARGARET Exam Location: [facility] Indication: right hemiparesis CVA, Patient is unresponsive in [id number]-[id number] BP: 136 / 106 HR: 93 Rhythm: Atrial fibrillation Technical Quality: Adequate MEASUREMENTS (Male / Female) Normal Values 2D ECHO LV Diastolic Diameter PLAX 4.8 cm 4.2 - 5.9 / 3.9 - 5.3 cm IVS Diastolic Thickness 1.3 cm 0.6 - 1.0 / 0.6 - 0.9 cm IVS Systolic Thickness 1.4 cm LVPW Diastolic Thickness 1.5 cm 0.6 - 1.0 / 0.6 - 0.9 cm LVPW Systolic Thickness 1.6 cm LVOT Diameter 1.9 cm LV Ejection Fraction 2D Teich 31.2 % LV Ejection Fraction MOD 4C 24.6 % LV Ejection Fraction MOD 2C 32.0 % LV Ejection Fraction 2C AL 32.4 % LA Diameter 4.6 cm LA Sys Volume AL 127.5 cm cubed LA Sys Volume Index AL 68.4 cm cubed/m squared Aorta at Sinotubular Diameter 3.4 cm IVC Diameter 1.8 cm M-MODE LA Ao Ratio MM 1.1 AV Cusp Separation MM 1.5 cm DOPPLER AV Peak Velocity 112.0 cm/s LVOT Peak Velocity 58.0 cm/s AV Area Cont Eq vti 1.6 cm squared AV Area Cont Eq pk 1.4 cm squared MV Peak Velocity 93.0 cm/s MV Area PHT 4.1 cm squared Mitral E to A Ratio 0.0 TV Peak Velocity 295.3 cm/s TV Peak E Velocity 42.0 cm/s PV Peak Velocity 69.0 cm/s FINDINGS Left Ventricle Severe diffuse hypokinesia of the left ventricule with an ejection fraction of around 25%. Normal LV size Right Ventricle Right ventricle appears to be normal size with mildly diminished ejection fraction Right Atrium Mildly increased right atrial size. Saline contrast injection revealed no evidence of the right left shunt Left Atrium Severely dilated left atrium with volume index as systolic volume index of 68.4 mL/m squared Mitral Valve Thickened mitral valve. Moderate mitral valve regurgitation. Aortic Valve Thickened aortic valve. Mild to moderate aortic valve regurgitation. Tricuspid Valve Ajum-[id number] tricuspid valve regurgitation. Estimated pulmonary artery peak systolic pressure 54 mmHg Pulmonic Valve Mild pulmonary valve regurgitation. Pericardium No pericardial effusion. Aorta Normal aortic annulus size. IVC Inferior vena cava not visualized. CONCLUSIONS Severe diffuse hypokinesia of the left ventricule with an ejection fraction of around 25%. Normal LV size. Right ventricle appears to be normal size with mildly diminished ejection fraction. Mildly increased right atrial size. Severely dilated left atrium with volume index as systolic volume index of 68.4 mL/m squared. Thickened mitral valve. Moderate mitral valve regurgitatio. Thickened aortic valve. Mild to moderate aortic valve regurgitation. Tznj-oh-haxqajmb tricuspid valve regurgitation. Moderate pulmonary hypertension with an estimated pulmonary artery peak systolic pressure 54 mmHg. Mild pulmonary valve regurgitation. Saline contrast injection revealed no evidence of the right left shunt There is no pericardial effusion. No similar previous studies are available for comparison Dr Tiffanie Giraldo MD [facility] (Electronically Signed) Final Date: 20 May 2024 12:09 S
[2024-05-20] VITALS (13 sets, daily range): BP systolic 100–149; BP diastolic 70–109; PULSE 79–98; RESP 12–27; TEMP 36.4–36.9; O2SAT 92–97
[2024-05-20 04:34] LABS: Basophils # 0.1 10^3/uL (0.0-0.1); Eosinophils # 0.4 10^3/uL (0.0-0.8); Hematocrit 47.2 % (37-53); Lymphocytes # 2.2 10^3/uL (0.8-4.8); Lymphocytes % 26.1 %; Mean Corpuscular HGB Conc 31.8 g/dL (30-55); Mean Corpuscular Hemoglobin 29.2 pg (27-33); Mean Corpuscular Volume 91.8 fl (82-101); Mean Platelet Volume 10.1 fL (7.4-10.4); Monocytes # 0.7 10^3/uL (0.2-0.9); Monocytes % 8.7 %; Neutrophils # 4.89 10^3/uL (1.8-7.7); Nucleated Red Blood Cells % 0 %; Platelet Count 250 10^3/cmm (157-399); Red Blood Count 5.14 10^6/uL (3.85-5.65); White Blood Count 8.28 10^3/uL (3.29-11.43)
[2024-05-20 04:52] LABS: Anion Gap 14.1 (5-19); Blood Urea Nitrogen 30 mg/dL (8-23); Calcium 8.7 mg/dL (8.5-10.5); Carbon Dioxide 25 mmol/L (22-29); Chloride 108 mmol/L (98-107); Glucose 111 mg/dL (65-115); Magnesium 2.4 mg/dL (1.7-2.3); Osmolality Calculated 303 mOsm/kg (285-295); Potassium 4.1 mmol/L (3.5-5.1); Sodium 143 mmol/L (136-145)
[2024-05-20] MEDS: atorvastatin 40 mg Tablet 80 MG PO (08:31)
[2024-05-20] MEDS: clopidogrel 75 mg Tablet PO (08:31)
[2024-05-20] MEDS: metoprolol tartrate 25 mg Tablet 50 MG PO ×2 (08:31→20:11)
--- NOTE | 2024-05-20 08:45 | PC.NURSE ---
Assisted patient with breakfast. Was able to carry on somewhat normal conversation. Patient speech slowly improving.
--- NOTE | 2024-05-20 08:55 | P.PN_ITS ---
Subjective 2 Subjective: seen today barium swallow planned for today no change in clinical status compared to yesterday pt resting in bed Vitals/I&O/Wt Last Vital Signs Temp 97.8 F 05/20/24 08:09 Pulse 84 05/20/24 08:09 Resp 12 05/20/24 08:09 BP 128/109 05/20/24 08:09 Pulse Ox 95 05/20/24 08:09 O2 Del Method Room Air 05/20/24 07:22 05/19/24 05/20/24 05/20/24 22:59 06:59 14:59 Intake Total 240 / 240 Output Total 600 / 600 450 / 1050 Balance -600 / 120 -450 / -330 240 / 240 Weight last 48 hrs Weight 68.124 kg Weight 68.7 kg Weight 54.431 kg Weight 72.575 kg Weight 72.575 kg Physical Exam 2 Narrative: Word salad Right-sided flaccidity, unable to fully follow commands Pupils symmetrical Able to move left upper and lower extremity without any difficulty Decreased tone of right side, unable to move right now Verbally redirectable but not comprehending commands HR controlled Lower extremity trace edema on room air Abdomen soft Alejandre catheter in place slight right facial droop, follows some commands Data 05/20/24 04:08 05/20/24 04:08 A&P Assessment and plan (1) Cerebrovascular accident: (2) Atrial fibrillation with rapid ventricular response: Plan Right-sided weakness Acute CVA Last known well time around noon 05/17 Not on a candidate of TNKase or arthrectomy Concern for thromboembolic phenomenon Requested hemoglobin A1c lipid panel patient has not seen PCP in last [address] Will do pur?ed diet for now Requested echo with bubble study Also requesting TSH and B12& Free T4 Permissive hypertension Statins high intensity added along Plavix A-fib RVR Labetalol 10 mg IV push requested Admit to [facility] May need Cardizem drip Will follow-up with echo report Will keep patient on therapeutic Lovenox Considering active stroke will use Plavix alone therapeutic Lovenox for now Tachypnea Lower extremity trace edema: Requested echo with BNP Tachyarrhythmia induced CHF? As per the son no previous history of stroke or [place] Troponin trending down EKG showing A-fib RVR with left bundle branch block Chest x-ray does not show significant vascular congestion or edema hold off diuretics for now Full code Pur?ed diet Depending on PT and ST evaluation decision will be made if patient would require short-term inpatient rehab versus home health Most of information provided by his son patient is confused and agitated Alejandre catheter has been placed: No signs of UTI 05/19/2024 seen this am failed swallow evaluation will order modified barium swallow in Am echo pending pt/ot mri results pending patient may require inpatient rehab bp 140/80's. 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 No hemorrhage. continue aspirin stop therapeutic lovenox, pt has been refusing it. has not received any doses of it so far. hold off on AC due to risk of hemorrhagic conversion continue atorvastatin 80 daily patient will need inpatient rehab. will have PT re-assess going for CT esophagram today PDMP PDMP Reviewed: Not Reviewed Attestations 2 Medical Necessity Statement*: More than 2 midnights anticipated for management evaluation of stroke, A-fib RVR, rule out CHF Diagnoses Cerebrovascular accident I63.9 Atrial fibrillation with rapid ventricular response I48.91
--- NOTE | 2024-05-20 09:13 | PC.NURSE ---
Clarified orders with Dr Delgadillo. Received instructions to start aspirin dose on 05/21/24, stop lovenox and stop plavix. RBVO
--- NOTE | 2024-05-20 09:44 | PC.SOCIAL ---
IMM Update Pg. 2 of IMM updated and reviewed with patient. Copy provided at bedside.
--- NOTE | 2024-05-20 11:25 | FL_ITS ---
WS: [id number] Exam: FL barium swallow [id number] Date/Time of Exam: 05/20/2024 3:46 PM Reason For Exam: Possible Diverticulum Fluoroscopy time: 1min [id number] minutes # of spot films: Esophagram was somewhat limited due to the patient's inability to fully cooperate for the usual views. Deglutition was normal. There was no indication of esophageal stricture or mass. No diverticuli were noted. The mid esophagus is moderately dilated. Barium passes freely into the stomach. No reflux was seen. Mild esophageal spasm. No aspiration was observed. FL/FL barium swallow [id number] IMPRESSION: 1. Mild dilatation of the mid esophagus and mild spasm. There was no indication of stricture or mass. No diverticuli were identified.
--- NOTE | 2024-05-20 11:26 | FL_ITS ---
WS: [id number] Exam: FL barium swallow modifd [id number] Date/Time of Exam: 05/20/2024 10:44 AM Reason For Exam: Oropharyngeal dysphagia Fluoroscopy time: 3min [id number] minutes # of spot films: 2 Modified barium swallow test is performed in conjunction with the speech therapy service. Oral pharyngeal phase of swallowing was grossly normal. There was some residual barium mixture foodstuffs retained in the piriform sinuses that was cleared with repeat swallowing and ingestion of additional thin liquid barium. No aspiration or penetration was observed. The patient swallowed a barium tablet without difficulty however the tablet was retained in the midesophagus until clearing with additional swallows of thin liquid. There was some retained food in the midesophagus in the region of a probable esophageal diverticulum. FL/FL barium swallow modifd [id number] IMPRESSION: 1. No aspiration or penetration noted. See above discussion. 2. 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 A detailed esophagram could be consider ed for further evaluation of this area. A separate report of findings and recommendations will follow from the speech t herapy service.
--- NOTE | 2024-05-20 17:13 | PC.NURSE ---
Addendum entered by Muriel Andino RN 05/20/24 17:13: Dr Moore responded to make sure refusal was documented. . Also, Instructed patient numerous times the use of these medications and prevention of further stroke or . Patient verbalized understanding but continues to adamantly refuse to take his blood thinners. Original Note: This patient absolutely refuses to take a blood thinner. He has been refusing Lovenox shots (Dr. Delgadillo is aware) and now he is refusing his eliquis. Informed Dr Moore.
[2024-05-21] VITALS (10 sets, daily range): BP systolic 113–143; BP diastolic 67–91; PULSE 74–86; RESP 16–33; TEMP 36.4–36.9; O2SAT 93–97
[2024-05-21 03:17] LABS: Basophils # 0.1 10^3/uL (0.0-0.1); Basophils % 0.7 %; Eosinophils # 0.4 10^3/uL (0.0-0.8); Eosinophils % 5.3 %; Hematocrit 43.3 % (37-53); Lymphocytes # 2.2 10^3/uL (0.8-4.8); Lymphocytes % 26.8 %; Mean Corpuscular HGB Conc 32.1 g/dL (30-55); Mean Corpuscular Hemoglobin 29.6 pg (27-33); Mean Corpuscular Volume 92.1 fl (82-101); Monocytes # 0.8 10^3/uL (0.2-0.9); Monocytes % 9.7 %; Neutrophils # 4.78 10^3/uL (1.8-7.7); Neutrophils % 57.3 %; Nucleated Red Blood Cells % 0 %; Platelet Count 239 10^3/cmm (157-399); Red Cell Distribution Width 13.9 % (12.1-15.1); White Blood Count 8.35 10^3/uL (3.29-11.43)
[2024-05-21 03:40] LABS: Anion Gap 12.9 (5-19); Blood Urea Nitrogen 27 mg/dL (8-23); Calcium 8.5 mg/dL (8.5-10.5); Carbon Dioxide 24 mmol/L (22-29); Chloride 109 mmol/L (98-107); Glucose 114 mg/dL (65-115); Magnesium 2.2 mg/dL (1.7-2.3); Osmolality Calculated 300 mOsm/kg (285-295); Potassium 3.9 mmol/L (3.5-5.1); Sodium 142 mmol/L (136-145)
[2024-05-21] MEDS: metoprolol tartrate 25 mg Tablet 50 MG PO ×2 (08:09→20:14)
[2024-05-21] MEDS: atorvastatin 40 mg Tablet 80 MG PO (08:09)
[2024-05-21] MEDS: aspirin 81 mg EC Tablet PO (08:09)
--- NOTE | 2024-05-21 11:34 | PC.CHAP ---
Pastoral Care Encounter/Spiritual Assessment Type of Contact [] Declined web systems developer visit [] Patient/Family/Request visit [] Outpatient visit [x] Follow-up visit [] Physician referral [] Code/Alert [] Routine visit [] Staff referral [] Actively dying [] Patient sleeping [] Family support [] [] Out of room [] Palliative care [] [] Receiving care in room [] Pre-surgical visit [] Trauma [] Long length of stay [] ICU visit [] Other: Refused Prayer Relational/Emotional Strength [] Patient feels connected with others/family/visitors/staff [] Distress [] Loneliness/isolation [] Abandonment Spirituality of Patient [] Person of Nicole [] Attends Restorationism of their Nicole [] Believes in Prayer [] Reads Bible or Anglican materials [] There are Spiritual issues to be addressed [place] Interventions [] Prayer [] Active listening [] Non-anxious presence [] Spiritual/emotional support [] Crisis/trauma care [] Spiritual counseling [] Bereavement support [] Provided bereavement packet [] Provided Bible/devotional materials [] Provided toy/stuffed animal, coloring book to patient or family member [] Provided Communion [] Anointing/[place] [] Salvation [] Completed spiritual assessment [] Other: Impact on Illness or Injury [] Angry [] Fearful [] Anxious [] Often cries [] Exhaustion [] Unable to work [] Unable to attend judaism [] Unable to walk/stand [] Unable to read [] Unable to drive [] Unable to eat/drink [] Unable to sleep [] Unable to be with family [] Patient intubated [] Other: Summary Time spent with patient
--- NOTE | 2024-05-21 14:28 | PC.NURSE ---
Assisted patient back to bed using [id number] and gait belt x2. Patient tolerated well. Denies needs or pain at this time.
--- NOTE | 2024-05-21 15:17 | P.PN_ITS ---
Subjective 2 Subjective: Reports feeling a little better this morning. He denies any pain, or shortness of breath. He has been eating and drinking okay. Has been requesting to go home. Medications: Reviewed: Yes Vitals/I&O/Wt Last Vital Signs Temp 98.1 F 05/21/24 11:42 Pulse 78 05/21/24 14:00 Resp 22 H 05/21/24 11:42 BP 135/91 05/21/24 11:42 Pulse Ox 95 05/21/24 11:42 O2 Del Method Room Air 05/21/24 11:42 05/21/24 05/21/24 05/21/24 06:59 14:59 22:59 Intake Total 0 / 660 360 / 360 Output Total 200 / 700 Balance -200 / -40 360 / 360 Weight last 48 hrs Weight 149 lb 4.047 oz Weight 150 lb 3 oz Physical Exam 2 Narrative: General: Cooperative. Speech is slightly garbled. Neuro: Right-sided flaccidity. Left UE/LE with normal ROM, weakness is appropriate for age and illness. HEENT: Pupils symmetrical Heart: RRR. Extremities: trace edema Abdomen: soft NT, ND. Bowel sounds present and normal. Alejandre catheter in place Data 05/21/24 02:55 05/21/24 02:55 A&P Assessment and plan (1) Cerebrovascular accident: (2) Atrial fibrillation with rapid ventricular response: Plan Right-sided weakness Acute CVA Last known well time around noon 05/17 Not on a candidate of TNKase or arthrectomy Concern for thromboembolic phenomenon Requested hemoglobin A1c lipid panel patient has not seen PCP in last [address] Will do pur?ed diet for now Requested echo with bubble study Also requesting TSH and B12& Free T4 Permissive hypertension Statins high intensity added along Plavix A-fib RVR Labetalol 10 mg IV push requested Admit to [facility] May need Cardizem drip Will follow-up with echo report Will keep patient on therapeutic Lovenox Considering active stroke will use Plavix alone therapeutic Lovenox for now Tachypnea Lower extremity trace edema: Requested echo with BNP Tachyarrhythmia induced CHF? As per the son no previous history of stroke or [place] Troponin trending down EKG showing A-fib RVR with left bundle branch block Chest x-ray does not show significant vascular congestion or edema hold off diuretics for now Full code Pur?ed diet Depending on PT and ST evaluation decision will be made if patient would require short-term inpatient rehab versus home health Most of information provided by his son patient is confused and agitated Alejandre catheter has been placed: No signs of UTI 05/19/2024 seen this am failed swallow evaluation will order modified barium swallow in Am echo pending pt/ot mri results pending patient may require inpatient rehab bp 140/80's. 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 No hemorrhage. continue aspirin stop therapeutic lovenox, pt has been refusing it. has not received any doses of it so far. hold off on AC due to risk of hemorrhagic conversion continue atorvastatin 80 daily patient will need inpatient rehab. will have PT re-assess going for CT esophagram today 05/21/2024 Modified barium swallow performed yesterday demonstrating no aspiration or penetration. 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 Speech therapy had recommended a minced and moist level 5 dysphagia diet or possibly soft and bite- size diet. If he tolerates, then he may be able to progress to thin liquids with chin tucks small bites and sips, and extra swallows. Echocardiogram showed severe diffuse hypokinesia left ventricle with an ejection fraction of around 25%. We can have him evaluated by cardiology, but I will stop by and discussed with patient to see what his wishes would be. Heart rate remains well-controlled. Blood pressures remain stable. Continue physical therapies. If he is doing well and his strength is improving, we can consider sending back to the group home for ongoing therapy. Continue Eliquis for now. He was restarted on this for his atrial fibrillation. Recheck a.m. labs. PDMP PDMP Reviewed: Not Reviewed Attestations 2 Medical Necessity Statement*: More than 2 midnights anticipated for management evaluation of stroke, A-fib RVR, HFrEF, therapies, swallowing evaluation and initiation of medications. Coding Level of Care Code Acute Code for Chg Fwd Moderate MDM includes number and complexity of problems actively addressed during encounter, amount and/or complexity of data reviewed/ordered and described risk of complication, morbidity or mortality of management as documented Diagnoses Cerebrovascular accident I63.9 Atrial fibrillation with rapid ventricular response I48.91
[2024-05-22] VITALS (13 sets, daily range): BP systolic 111–138; BP diastolic 74–98; PULSE 71–85; RESP 12–27; TEMP 36.4–36.8; O2SAT 94–97
--- NOTE | 2024-05-22 06:20 | P.PN_ITS ---
Subjective 2 Subjective: Patient continues to refuse anticoagulation. States that he does not want to take it. He is afraid once he is already will never be able to come off of it and he is concerned with the bleeding risk. He is requesting to go home. Discussed with him that we are recommending transfer to a rehab or [facility] facility. He will discuss it with his family and let us know tomorrow. Is eating better. he is able to converse much better today. Has been working with therapy. Medications: Reviewed: Yes Vitals/I&O/Wt Last Vital Signs Temp 98.2 F 05/22/24 03:55 Pulse 79 05/22/24 03:55 Resp 18 05/22/24 03:55 BP 133/95 05/22/24 03:55 Pulse Ox 94 05/22/24 03:55 O2 Del Method Room Air 05/22/24 03:55 05/21/24 05/21/24 05/22/24 14:59 22:59 06:59 Intake Total 360 / 360 120 / 480 Output Total 650 / 650 400 / 1050 Balance 360 / 360 -530 / -170 -400 / -570 Weight last 48 hrs Weight 149 lb 14.629 oz Weight 149 lb 4.047 oz Physical Exam 2 Narrative: General: Cooperative. Speech is more clear today. Neuro: Right-sided flaccidity. Left UE/LE with normal ROM, weakness is appropriate for age and illness. HEENT: Pupils symmetrical Heart: RRR. Extremities: trace edema Abdomen: soft NT, ND. Bowel sounds present and normal. Alejandre catheter in place Data 05/21/24 02:55 05/21/24 02:55 A&P Assessment and plan (1) Cerebrovascular accident: (2) Atrial fibrillation with rapid ventricular response: Plan 89-year-old male admitted for acute CVA, right-sided hemiparesis. Right-sided weakness Continue close CSU monitoring. Was not a candidate for TNKase. He continues to refuse Anticoagulation. Modified barium swallow did not demonstrate any aspiration. Recommended dysphagia diet. He is on a level 4 thick pur?ed. Speech therapy continues to work with him. Heart rate is controlled, blood pressure stable. Echocardiogram showed severe diffuse hypokinesia left ventricle with ejection fraction around 25%. Will continue with therapies. Plan is to have case management see him tomorrow and see if we can arrange for SNF placement or rehab facility for ongoing therapy. Recheck labs in the a.m. Will continue to try to get him to agree with anticoagulation so as to decrease his risk. He is taking the aspirin, metoprolol, atorvastatin. Code Status: Full IVF: None DVT PPx: Eliquis but refusing GI PPx: None ABx: None Diet: Mildly thick liquids, soft and bite sized foods Discharge plan: SNF versus rehab facility. PDMP PDMP Reviewed: Not Reviewed Attestations 2 Medical Necessity Statement*: More than 2 midnights anticipated for management evaluation of stroke, A-fib RVR, HFrEF, therapies, swallowing evaluation and initiation of medications. Coding Level of Care Code Acute Code for Chg Fwd Moderate MDM includes number and complexity of problems actively addressed during encounter, amount and/or complexity of data reviewed/ordered and described risk of complication, morbidity or mortality of management as documented Diagnoses Cerebrovascular accident I63.9 Atrial fibrillation with rapid ventricular response I48.91
[2024-05-22] MEDS: metoprolol tartrate 25 mg Tablet 50 MG PO ×2 (08:43→21:36)
[2024-05-22] MEDS: atorvastatin 40 mg Tablet 80 MG PO (08:43)
[2024-05-22] MEDS: aspirin 81 mg EC Tablet PO (08:43)
--- NOTE | 2024-05-22 08:46 | PC.NURSE ---
Patient refuses cristobal nurse educated patient on importance of taking this medication and the risks of refuses. Patient accepts the risks and says I just don't want to take it.
[2024-05-23] VITALS (9 sets, daily range): BP systolic 116–131; BP diastolic 66–100; PULSE 63–97; RESP 16–30; TEMP 36.4–36.9; O2SAT 94–96
[2024-05-23 03:24] LABS: Basophils # 0.1 10^3/uL (0.0-0.1); Basophils % 0.7 %; Eosinophils # 0.4 10^3/uL (0.0-0.8); Eosinophils % 4.2 %; Hematocrit 44.8 % (37-53); Lymphocytes # 2.2 10^3/uL (0.8-4.8); Mean Corpuscular HGB Conc 31.3 g/dL (30-55); Mean Corpuscular Volume 92.8 fl (82-101); Mean Platelet Volume 10.4 fL (7.4-10.4); Monocytes # 0.8 10^3/uL (0.2-0.9); Monocytes % 8.2 %; Neutrophils # 5.71 10^3/uL (1.8-7.7); Neutrophils % 62.6 %; Nucleated Red Blood Cells % 0 %; Platelet Count 218 10^3/cmm (157-399); Red Blood Count 4.83 10^6/uL (3.85-5.65); Red Cell Distribution Width 13.5 % (12.1-15.1); White Blood Count 9.12 10^3/uL (3.29-11.43)
[2024-05-23 03:45] LABS: Alanine Aminotransferase 21 U/L (0-41); Albumin Level 3.1 g/dL (3.5-5.2); Alkaline Phosphatase 58 U/L (40-130); Anion Gap 14.9 (5-19); Aspartate Amino Transferase 22 U/L (0-40); Blood Urea Nitrogen 20 mg/dL (8-23); Calcium 8.4 mg/dL (8.5-10.5); Carbon Dioxide 23 mmol/L (22-29); Chloride 104 mmol/L (98-107); Globulin 3.3 g/dL (1.3-4.6); Glucose 104 mg/dL (65-115); Magnesium 2.1 mg/dL (1.7-2.3); Osmolality Calculated 289 mOsm/kg (285-295); Potassium 3.9 mmol/L (3.5-5.1); Sodium 138 mmol/L (136-145); Total Bilirubin 0.4 mg/dL (0.15-1.2); Total Protein 6.4 g/dL (6.6-8.7)
--- NOTE | 2024-05-23 07:54 | PC.NURSE ---
client service coordinator rounds 05/19 at 0830- stroke education book given to patient. Patient confused and weak on right side. RUE more weak than RLE, pt able to wiggle his toes and some effort to raise the RLE.
[2024-05-23] MEDS: aspirin 81 mg EC Tablet PO (08:40)
[2024-05-23] MEDS: atorvastatin 40 mg Tablet 80 MG PO (08:41)
[2024-05-23] MEDS: metoprolol tartrate 25 mg Tablet 50 MG PO (08:41)
[2024-05-23 10:41] LABS: SARS Covid-2 Antigen Negative (Negative)
--- NOTE | 2024-05-23 11:27 | PC.SOCIAL ---
IMM Update pg 2 of IMM updated and reviewed w/ patient. Copy provided and copy dated, initialed and placed in chart.
--- NOTE | 2024-05-23 11:54 | PM.DCS ---
Discharge Providers Date of Admission: 05/18/24 23:00 Date of Discharge: May 23, 2024 Attending Provider at Admission: Enoc Sanchez MD Attending Provider at Discharge: Anatoliy Faria DO Diagnoses at Discharge Discharge Diagnosis (1) Cerebrovascular accident: Status: Acute (2) Atrial fibrillation with rapid ventricular response: Status: Acute Reason for Visit Reason for Visit: Stroke like symptoms Brief History: 89-year-old male who presented to the hospital via EMS for concerns related to right-sided stroke. He had weakness and word salad upon arrival. He was unable to provide much history at the time of his evaluation. He was not consistent with seeing a primary care physician, and his son stated he had not seen a doctor the last 2 years. He had never had a heart attack or stroke in the past. He was supposed to be on some heart medication and high blood pressure pills, but he was not taking it consistently. Son says that he saw his dad on 05/17 and he was in his usual state of health. When his son returned to visit him he was noted to be slouched on his couch leaning towards 1 side, and appeared very weak and had difficulty speaking. In the ER he presented with hypertension, atrial for have been RVR, CT of the head and neck showed signs of occlusive acute stroke. He was admitted for further workup and treatment. Hospital Course Hospital Course He was admitted to [facility]. He was not a candidate for TNKase at the time of his admission. He refused anticoagulation throughout the remainder of his stay. He had a modified barium swallow that did not demonstrate any aspiration and he was recommended to start a dysphagia diet with pur?ed which was advanced to soft chewy bites. An echocardiogram showed severe diffuse hypokinesis left ventricule and a reduced ejection fraction of around 25%. We continue to encourage him to start anticoagulation given his risk of repeat stroke or heart attack, but he states he is not taking it. He was okay with taking aspirin, metoprolol and atorvastatin. He continue to work with therapies throughout the rest of his stay. He was able to speak better prior to discharge. He was agreeable to going to a [place] [facility] facility for some time to have rehab and try to work on his strength so that he could return to his home. His heart rate and blood pressure did stabilize throughout this today. He was discharged in stable and improved condition. Was recommended that he establish with a PCP and that he have further workups. Physical Exam Narrative: General: Cooperative. Speech is more clear today. Neuro: Right-sided flaccidity. Left UE/LE with normal ROM, weakness is appropriate for age and illness. HEENT: Pupils symmetrical Heart: RRR. Extremities: trace edema Abdomen: soft NT, ND. Bowel sounds present and normal. Alejandre catheter in place Discharge Data Studies Completed and Pending Completed Studies During Hospitalization Category Date Time Status CT angio headneck* [id number] Stat Cat Scan 05/18/24 18:[address] head thrombolytic [id number] Stat Cat Scan 05/18/24 18:34 Completed [place] barium swallow [id number] Routine Exams 05/20/24 11:25 Completed FL barium swallow modifd 05005 Routine Exams 05/20/24 11:26 Completed XR chest 1V portable [id number] Stat Exams 05/18/24 18:34 Completed MR head wo con* [id number] Routine MRI 05/19/24 06:00 Completed CV. echo lmt wo/w bubble [id number] Routine Ultrasound 05/19/24 23:45 Completed Radiology Impressions Chest X-Ray 05/18/24 18:34 IMPRESSION: As above. Head CT 05/18/24 18:34 IMPRESSION: No acute intracranial abnormality. ASSESSMENT: ASPECTS ([place] Stroke Program Early CT Score) is 10. ADDENDUM: 05/18/242042 Ch[place] Coleman acknowledged receipt of report at 05/18/2024 8:41 PM CDT. Head/Neck CTA 05/18/24 18:34 IMPRESSION: Abrupt cutoff of the left A2 segment of the anterior cerebral artery may relate to a variant anatomy versus occlusion. This may correspond to an area of hypoattenuation in the medial left frontal lobe. Consider follow up with MRI to evaluate the possibility of acute/subacute ischemia. 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 Remaining CT angio of the neck is patent without high-grade stenosis or occlusion. REFERENCES: NASCET CRITERIA. The degree of stenosis in the cervical segment of the internal carotid artery is based on NASCET criteria. Normal is no stenosis. Mild is less than 50% stenosis. Moderate is 50-69% stenosis. Severe is 70% to 99% stenosis. Total occlusion is no detectable patent lumen. ADDENDUM: 05/18/242120 THIS REPORT CONTAINS FINDINGS THAT MAY BE CRITICAL TO PATIENT CARE. The findings were verbally communicated via telephone conference with Chico Coleman at 9:19 PM CDT on 05/18/2024. The findings were acknowledged and understood. Head MRI 05/19/24 06:00 IMPRESSION: 1. Acute LEFT paramedian frontal cerebral cortex infarct. No hemorrhage. 2. Additional chronic numerous lacunar 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. 3. Cerebral and cerebellar atrophy and moderate small vessel disease. Barium Swallow X-Ray 05/20/24 11: IMPRESSION: 1. Mild dilatation of the mid esophagus and mild spasm. There was no indication of stricture or mass. No diverticuli were identified. Modified Barium Swallow 05/20/24 11: IMPRESSION: 1. No aspiration or penetration noted. See above discussion. 2. 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 A detailed esophagram could be considered for further evaluation of this area. A separate report of findings and recommendations will follow from the speech therapy service. Laboratory Results WBC 9.12 10^3/uL (3.29-11.43) 05/23/24 02: RBC 4.83 10^6/uL (3.85-5.65) 05/23/24 02:29 Hgb 14.00 g/dL (11.27-16.99) 05/23/24 02: Hct 44.8 % (37-53) 05/23/24 02: MCV 92.8 fl (82-101) 05/23/24 02: MCH 29.0 pg (27-33) 05/23/24 02: MCHC 31.3 g/dL (30-55) 05/23/24 02: RDW 13.5 % (12.1-15.1) 05/23/24 02: Plt Count 218 10^3/cmm (157-399) 05/23/24 02: MPV 10.4 fL (7.4-10.4) 05/23/24 02: Neut % (Auto) 62.6 % 05/23/24 02: Lymph % (Auto) 24.0 % 05/23/24 02: Morris % (Auto) 8.2 % 05/23/24 02: Eos % (Auto) 4.2 % 05/23/24 02: Baso % (Auto) 0.7 % 05/23/24 02: Neut # (Auto) 5.71 10^3/uL (1.8-7.7) 05/23/24 02: Lymph # (Auto) 2.2 10^3/uL (0.8-4.8) 05/23/24 02: Morris # (Auto) 0.8 10^3/uL (0.2-0.9) 05/23/24 02: Eos # (Auto) 0.4 10^3/uL (0.0-0.8) 05/23/24 02: Baso # (Auto) 0.1 10^3/uL (0.0-0.1) 05/23/24 02: Nucleated RBC % (auto) 0 % 05/23/24 02: Nucleated RBCs # 0.0 /100WBC 05/23/24 02: PT 15.00 SECONDS (12.1-14.9) H 05/18/24 18:44 INR 1.10 (0.8-1.2) 05/18/24 18:44 APTT 31.0 SECONDS (23.9-36.7) 05/18/24 18:44 Sodium 138 mmol/L (136-145) 05/23/24 02: Potassium 3.9 mmol/L (3.5-5.1) 05/23/24 02: Chloride 104 mmol/L (98-107) 05/23/24 02: Carbon Dioxide 23 mmol/L (22-29) 05/23/24 02: Anion Gap 14.9 (5-19) 05/23/24 02: BUN 20 mg/dL (8-23) 05/23/24 02: Creatinine 0.9 mg/dL (0.7-1.2) 05/23/24 02: GFR Calculation Not Reportable 05/23/24 02: Glucose 104 mg/dL (65-115) 05/23/24 02:29 POC Glucose 187 mg/dL (70-110) H 05/18/24 19:14 Estimat Average Glucose 134 05/19/24 00:22 Hemoglobin A1c 6.3 % (4.0-6.0) H 05/19/24 00:22 Calculated Osmolality 289 mOsm/kg (285-295) 05/23/24 02:29 Calcium 8.4 mg/dL (8.5-10.5) L 05/23/24 02:29 Phosphorus 2.9 mg/dL (2.5-4.5) 05/19/24 03:15 Magnesium 2.1 mg/dL (1.7-2.3) 05/23/24 02:29 Total Bilirubin 0.4 mg/dL (0.15-1.2) 05/23/24 02:29 AST 22 U/L (0-40) 05/23/24 02:29 ALT 21 U/L (0-41) 05/23/24 02:29 Alkaline Phosphatase 58 U/L (40-130) 05/23/24 02:29 Troponin T Baseline 35 ng/L (0-15) H 05/18/24 18:44 Troponin T 120 Minute 28.48 ng/L (0-15) H 05/18/24 20:42 Delta Troponin T -6.52 ABS# (0-10) L 05/18/24 20:42 Troponin T Hi Sens 6Hr Cancelled 05/19/24 00:22 Troponin T Hi Sens 6Hr Delta Cancelled 05/19/24 00:22 NT-Pro-B Natriuret Pep 58110 pg/mL (0-450) H 05/18/24 18:44 Total Protein 6.4 g/dL (6.6-8.7) L 05/23/24 02:29 Albumin 3.1 g/dL (3.5-5.2) L 05/23/24 02:29 Globulin 3.3 g/dL (1.3-4.6) 05/23/24 02:29 Triglycerides 52 mg/dL (0-150) 05/18/24 18:44 Cholesterol 171 mg/dL (0-200) 05/18/24 18:44 LDL Cholesterol, Calc 113 mg/dL (50-129) 05/18/24 18:44 HDL Cholesterol 48 mg/dL (60-100) L 05/18/24 18:44 LDL/HDL Ratio 2.35 RATIO (0.00-3.22) 05/18/24 18:44 Cholesterol/HDL Ratio 3.56 mg/dL (1.0-5.00) 05/18/24 18:44 Vitamin B12 894 pg/mL (232-1245) 05/18/24 18:44 TSH 5.58 uIU/mL (0.27-4.20) H 05/18/24 18:44 Free T4 1.38 ng/dL (0.82-1.77) 05/18/24 18:44 Urine Color Dark yellow (Yellow) A 05/18/24 20:30 Urine Appearance Clear (CLEAR) 05/18/24 20: Urine pH 5.0 (5-7) 05/18/24 20: Ur Specific [place] 1.030 (1.005-1.030) 05/18/24 20: Urine Protein 2+ (Negative) A 05/18/24 20: Urine Glucose (UA) Negative (Normal) 05/18/24 20: Urine Ketones Trace (Negative) 05/18/24 20:30 Urine Blood Trace (Negative) A 05/18/24 20:30 Urine Nitrate Negative (Negative) 05/18/24 20:30 Urine Bilirubin 1+ (Negative) H 05/18/24 20:30 Urine Urobilinogen 1.0 mg/dL (Negative) 05/18/24 20:30 Ur Leukocyte Esterase Negative (Negative) 05/18/24 20:30 Urine RBC 0-2 /hpf (0-2) 05/18/24 20:30 Urine WBC 0-5 /hpf (0-5) 05/18/24 20:30 Ur Squamous Epith Cells 0-5 /hpf (0-5) 05/18/24 20:30 Amorphous Sediment Not Reportable 05/18/24 20:30 Urine Bacteria None seen /hpf (NONE) 05/18/24 20:30 Hyaline Casts 7.42 /lpf 05/18/24 20:30 Salicylates < 0.3 mg/dL (3-10) L 05/18/24 18:44 Urine Opiates Screen Negative ng/mL (Negative) 05/18/24 20:30 Acetaminophen < 5.0 ug/mL (10-30) L 05/18/24 18:44 Ur Barbiturates Screen Negative ng/mL (Negative) 05/18/24 20:30 Ur Phencyclidine Scrn Negative ng/mL (Negative) 05/18/24 20:30 Ur Amphetamines Screen Negative ng/mL (Negative) 05/18/24 20:30 U Benzodiazepines Scrn Negative ng/mL (Negative) 05/18/24 20:30 Urine Cocaine Screen Negative ng/mL (Negative) 05/18/24 20:30 U Marijuana (THC) Screen Negative ng/mL (Negative) 05/18/24 20:30 Ethyl Alcohol < 10 mg/dL (0-10) 05/18/24 18:44 SARS-CoV-2 Ag (Rapid) Negative (Negative) 05/23/24 10:03 Vitals Last Vital Signs Temp 97.5 F L 05/23/24 09:34 Pulse 86 05/23/24 09:34 Resp 30 H 05/23/24 09:34 BP 131/100 05/23/24 09:34 Pulse Ox 96 05/23/24 08:00 O2 Del Method Room Air 05/23/24 08:00 Discharge Plan Discharge Patient Disposition: Xfer SNF Condition: Stable Prescriptions: New atorvastatin 40 mg Tablet 80 mg PO DAILY Qty: 30 2RF metoprolol tartrate 25 mg Tablet 50 mg PO BID@0900,2100 60 Days Qty: 120 1RF Continued aspirin [Nevaeh Low Dose Aspirin] 81 mg Tablet,Delayed Release (Dr/Ec) 81 mg PO DAILY Discharge Orders: Discharge Order (Routine); Ordered 05/23/24 Ordered By: Anatoliy Faria Referrals: [facility] [Outside] Discharge Diet: As Directed and GI Soft Discharge Activity: Increase activity as tolerated and As per PT/OT instructions Patient Instructions: Metoprolol (By mouth) (Lopressor, Toprol XL), Atorvastatin (By mouth) (Lipitor, Atorvaliq), A-fib (Atrial Fibrillation) (DC), Opioid Safety, Stroke Stoplight Discharge Attestations Time Spent in Discharge Care*: less than 30 min Specific Discharge Activities: educating patient, educating and/or supporting family/caregiver, discussing with nurse case manager/social workers/dc planners, documenting/other paperwork and evaluating patient/reviewing data Quality Metrics Clinical Quality Measures [ No reported AMI, CVA or VTE this stay] Coding Level of Care Code Acute Code for Chg Fwd Total time (in minutes) for Discharge: 27 Diagnoses Cerebrovascular accident I63.9 Atrial fibrillation with rapid ventricular response I48.91
--- NOTE | 2024-05-23 12:22 | PC.NURSE ---
patient refused eliquis this morning, stating he does not take blood thinners
== END 2024-05-23 13:51 | disposition skilled nursing facility (03) | DRG 65 ==
LOC: ER 05-19 00:03 → CSU 05-19 01:00 → MEDSURG 05-19 19:34
PROVIDERS: Internal Medicine; Admitting Provider Internal Medicine; Emergency Provider Emergency Medicine; Visit Provider Family Medicine
DX: I63.512 Cerebral infarction due to unspecified occlusion or stenosis of left middle cerebral artery (principal); G81.91 Hemiplegia, unspecified affecting right dominant side; I50.20 Unspecified systolic (congestive) heart failure; R47.9 Unspecified speech disturbances; R29.810 Facial weakness; R29.716 NIHSS score 16; I48.91 Unspecified atrial fibrillation; T44.7X6A Underdosing of beta-adrenoreceptor antagonists, initial encounter; I11.0 Hypertensive heart disease with heart failure; Z91.128 Patient's intentional underdosing of medication regimen for other reason; Z79.82 Long term (current) use of aspirin; Z86.73 Personal history of transient ischemic attack (TIA), and cerebral infarction without residual deficits
CPT/HCPCS: 36415; 36416; 70450; 70496; 70498; 70551; 71045; 74220; 74230; 80048; 80053; 80061; 80306; 80307; 81001; 82607; 82962; 83036; 83735; 83880; 84100; 84439; 84443; 84484; 85025; 85610; 85730; 87426; 92523; 92610; 92611; 93005; 97110; 97162; 97167; 97530; 97535; 99285; C8924; J3490; J9999

== ENCOUNTER 2024-06-14 15:16 | Inpatient (IN) | payer MEDICARE, MEDICAID, SELFPAY ==
[2024-06-14] VITALS (32 sets, daily range): BP systolic 122–157; BP diastolic 69–107; PULSE 77–144; RESP 10–50; TEMP 36.4–38.1; O2SAT 91–100; BMI 24.6
--- NOTE | 2024-06-14 15:30 | ECG_ITS ---
[facility] Date: 2024-06-14 Pat Name: Luis Morales Department: Room: Gender: Male [employer] Developer: : 1935 Requested By: Aleksandr Scott Order Number: [id number] Tiffanie MD: Tiffanie Giraldo M.D. Measurements Intervals [place] Rate: 89 P: 0 NV: 0 QRS: 25 QRSD: 120 T: 205 QT: 401 QTc: 490 Interpretive Statements ATRIAL FIBRILLATION ANTERIOR MYOCARDIAL INFARCTION , PROBABLY RECENT [40+ ms Q WAVE AND/OR ST/T ABNORMALITY IN V3/V4] POSSIBLE INFERIOR MYOCARDIAL INFARCTION , OF INDETERMINATE AGE [30 ms Q WAVE IN II/aVF] ACUTE NM Compared to ECG 05/19/2024 00:33:21 Myocardial infarct finding now present Left bundle-branch block no longer present Electronically Signed On 06-14-2024 21:18:50 CDT by Tiffanie Giraldo M.D. [email or web address]
--- NOTE | 2024-06-14 15:30 | XR_ITS ---
WS: [id number] Exam: XR chest 1V portable [id number] Date/Time of Exam: 06/14/2024 3:38 PM Reason For Exam: shortness of breath Comparison 05/18/2024. Heart is enlarged. There is infiltrate in the RIGHT lower lobe and RIGHT basal pleural effusion. No pneumothorax. The LEFT lung is clear. The mediastinum and osseous thorax are unremarkable. Calcified mediastinal and hilar lymph nodes. XR/XR chest 1V portable [id number] IMPRESSION: 1. Cardiac enlargement 2. Infiltrate in the RIGHT lower lobe suggesting pneumonia. Small RIGHT basal p leural effusion.
--- NOTE | 2024-06-14 15:46 | W.ED.SOB ---
Documented by User: Aleksandr Croft DO 06/16/24 06:28 HPI - SOB/Dyspnea General: Chief Complaint: Shortness of Breath/Dyspnea Stated Complaint: Resp Distress Time Seen by Provider: 06/14/24 15:29 History of Present Illness: HPI Narrative: 89-year-old male was brought in by ambulance he been having increasing shortness of breath along with some confusion. Patient's requiring oxygen with EMS was febrile as had a cough. Patient otherwise unable to contribute to history. Patient typically resides in a retirement. Related Data Home Medications ?Medication ?Instructions ?Recorded ?Confirmed aspirin 81 mg tablet,delayed 81 mg PO DAILY 05/19/24 06/14/24 release (Nevaeh Low Dose Aspirin) amoxicillin 875 mg-potassium 1 tab PO BID 06/14/24 06/14/24 clavulanate 125 mg tablet atorvastatin 80 mg tablet 80 mg PO QPM 06/14/24 06/14/24 levothyroxine 25 mcg tablet 25 mcg PO DAILY 06/14/24 06/14/24 metoprolol tartrate 50 mg tablet 50 mg PO BID 06/14/24 06/14/24 prednisone 20 mg tablet 40 mg PO DAILY 06/14/24 06/14/24 Allergies Allergy/AdvReac Type Severity Reaction Status Date / Time No Known Drug Allergies Allergy Unknown Verified 06/14/24 15:29 Review of Systems General: Reports: ROS unobtainable due to mental status PFS ED PFSH: Medical History Hypertension Surgical History No pertinent past surgical history Physical Exam HENMT: COMMON NORMALS: normocephalic and atraumatic HEAD & SCALP: normocephalic and atraumatic Resp: COMMON NORMALS: normal respiratory effort, No retractions and No use of accessory muscles AUSCULTATION: crackles and wheezes Cardio: COMMON NORMALS: regular rate, regular rhythm and No murmurs present (Cardio) RATE: regular rate RHYTHM: regular rhythm GI: COMMON NORMALS: Soft to palpation and No hepatosplenomegaly present AUSCULTATION: Yes normoactive bowel sounds PALPATION: Yes Soft to palpation, No Tenderness to palpation present (GI), No Guarding due to palpation present (GI) and Yes No hepatosplenomegaly present Extremity: COMMON NORMALS: normal to inspection, capillary refill normal, no clubbing, cyanosis or edema, no calf tenderness and no pedal edema Skin: COMMON NORMALS: no rashes or lesions noted GENERAL SKIN EXAM: no rashes or lesions noted Course Vital Signs: Vital signs: Vital Signs Temperature 97.8 F 06/16/24 04:00 Pulse Rate 92 06/16/24 04:00 Respiratory Rate 20 H 06/16/24 04:00 Blood Pressure 125/72 06/16/24 04:00 Pulse Oximetry 98 06/16/24 04:00 Oxygen Delivery Me thod Nasal Cannula 06/16/24 04:00 Oxygen Flow Rate 2 06/16/24 02:18 MDM - SOB/Dyspnea Medical Decision Making Care signed out to Dr. Shannon at change of shift. See final notes for diagnosis and disposition. Lab Data 06/16/24 02:14 06/16/24 02:14 Labs/Radiology: Radiology Impressions Chest X-Ray 06/14/24 15:30 IMPRESSION: 1. Cardiac enlargement 2. Infiltrate in the RIGHT lower lobe suggesting pneumonia. Small RIGHT basal pleural effusion. Laboratory Results WBC 15.54 10^3/uL (3.29-11.43) H 06/14/24 16:17 RBC 5.33 10^6/uL (3.85-5.65) 06/14/24 16:17 Hgb 15.50 g/dL (11.27-16.99) 06/14/24 16:17 Hct 48.5 % (37-53) 06/14/24 16:17 MCV 91.0 fl (82-101) 06/14/24 16:17 MCH 29.1 pg (27-33) 06/14/24 16:17 MCHC 32.0 g/dL (30-55) 06/14/24 16:17 RDW 14.3 % (12.1-15.1) 06/14/24 16:17 Plt Count 199 10^3/cmm (157-399) 06/14/24 16:17 MPV 12.2 fL (7.4-10.4) H 06/14/24 16:17 Neut % (Auto) 92.1 % 06/14/24 16:17 Lymph % (Auto) 3.6 % 06/14/24 16:17 Frederick % (Auto) 3.7 % 06/14/24 16:17 Eos % (Auto) 0.0 % 06/14/24 16:17 Baso % (Auto) 0.1 % 06/14/24 16:17 Neut # (Auto) 14.32 10^3/uL (1.8-7.7) H 06/14/24 16:17 Lymph # (Auto) 0.6 10^3/uL (0.8-4.8) L 06/14/24 16:17 Frederick # (Auto) 0.6 10^3/uL (0.2-0.9) 06/14/24 16:17 Eos # (Auto) 0.0 10^3/uL (0.0-0.8) 06/14/24 16:17 Baso # (Auto) 0.0 10^3/uL (0.0-0.1) 06/14/24 16:17 Nucleated RBC % (auto) 0 % 06/14/24 16:17 Nucleated RBCs # 0.0 /100WBC 06/14/24 16:17 Specimen Type Arterial 06/14/24 15:48 Sample Site Radial, right 06/14/24 15:48 ABG pH 7.48 (7.35-7.45) H 06/14/24 15:48 ABG pCO2 26.2 mmHg (35-45) L 06/14/24 15:48 ABG pO2 63.7 mmHg (80.0-100.0) L 06/14/24 15:48 ABG PO2/FiO2 Ratio 159 06/14/24 15:48 ABG HCO3 19.2 mmol/L (22-26) L 06/14/24 15:48 ABG Base Excess -2.7 mmol/L (-2.0-2.0) L 06/14/24 15:48 Terry Test Pos 06/14/24 15:48 Hematocrit 44.1 % (42-52) 06/14/24 15:48 Hgb O2 Saturation 92.3 % (95-100) L 06/14/24 15:48 Carboxyhemoglobin 1.2 %THgb (0.4-20.1) 06/14/24 15:48 Methemoglobin 0.3 % (0.4-1.5) L 06/14/24 15:48 Total Hemoglobin 14.4 g/dL (14-18) 06/14/24 15:48 O2 Delivery Device Nc 06/14/24 15:48 O2 Liters/Min 5.0 % 06/14/24 15:48 FiO2 40.0 % 06/14/24 15:48 Self Propelled Hot Mix Roller Operator ID [email or web address] 06/14/24 15:48 Sodium Cancelled 06/14/24 17:25 Potassium Cancelled 06/14/24 17:25 Chloride Cancelled 06/14/24 17:25 Carbon Dioxide Cancelled 06/14/24 17:25 Anion Gap Cancelled 06/14/24 17:25 BUN Cancelled 06/14/24 17:25 Creatinine Cancelled 06/14/24 17:25 GFR Calculation Cancelled 06/14/24 17:25 Glucose Cancelled 06/14/24 17:25 Calculated Osmolality Cancelled 06/14/24 17:25 Lactic Acid 2.7 mmol/L (0.5-2.2) H 06/14/24 16:17 Calcium Cancelled 06/14/24 17:25 Total Bilirubin Cancelled 06/14/24 17:25 AST Cancelled 06/14/24 17:25 ALT Cancelled 06/14/24 17:25 Alkaline Phosphatase Cancelled 06/14/24 17:25 Total Protein Cancelled 06/14/24 17:25 Albumin Cancelled 06/14/24 17:25 Globulin Cancelled 06/14/24 17:25 Influenza A (PCR) Negative (Negative) 06/14/24 16:06 Influenza Type B (PCR) Negative (Negative) 06/14/24 16:06 RSV (PCR) Negative (Negative) 06/14/24 16:06 SARS-CoV-2 (PCR) Negative (Negative) 06/14/24 16:06 Discharge Plan Discharge Patient Disposition: Admitted As Inpatient Admit Provider: Cindy Mccauley Clinical Impression: Pneumonia, Hypokalemia, Sepsis Condition: Stable Coding Level of Care Code ED Chemical Processing Supervisor for Balaji Fwd Documented by User: Stella Shannon MD 06/14/24 17:55 HPI - SOB/Dyspnea General: Chief Complaint: Shortness of Breath/Dyspnea Stated Complaint: Resp Distress Time Seen by Provider: 06/14/24 15:29 Source: patient and EMS Mode of arrival: EMS Limitations: altered mental status History of Present Illness: HPI Narrative: 89-year-old male was brought in by ambulance he been having increasing shortness of breath along with some confusion. Patient's requiring oxygen with EMS was febrile as had a cough. Related Data Home Medications ?Medication ?Instructions ?Recorded ?Confirmed aspirin 81 mg tablet,delayed 81 mg PO DAILY 05/19/24 06/14/24 release (Nevaeh Low Dose Aspirin) amoxicillin 875 mg-potassium 1 tab PO BID 06/14/24 06/14/24 clavulanate 125 mg tablet atorvastatin 80 mg tablet 80 mg PO QPM 06/14/24 06/14/24 levothyroxine 25 mcg tablet 25 mcg PO DAILY 06/14/24 06/14/24 metoprolol tartrate 50 mg tablet 50 mg PO BID 06/14/24 06/14/24 prednisone 20 mg tablet 40 mg PO DAILY 06/14/24 06/14/24 Allergies Allergy/AdvReac Type Severity Reaction Status Date / Time No Known Drug Allergies Allergy Unknown Verified 06/14/24 15:29 [facility] ED PFSH: Medical History Hypertension Surgical History No pertinent past surgical history Physical Exam Const: GENERAL APPEARANCE: ill appearing Course Vital Signs: Vital signs: Vital Signs Temperature 97.8 F 06/16/24 04:00 Pulse Rate 92 06/16/24 04:00 Respiratory Rate 20 H 06/16/24 04:00 Blood Pressure 125/72 06/16/24 04:00 Pulse Oximetry 98 06/16/24 04:00 Oxygen Delivery Me thod Nasal Cannula 06/16/24 04:00 Oxygen Flow Rate 2 06/16/24 02:18 MDM - SOB/Dyspnea Medical Decision Making Care signed out to Dr. Shannon at change of shift. See final notes for diagnosis and disposition. Patient presents for shortness of breath was found to have a pneumonia. He is febrile met sepsis criteria did give him sepsis bolus of IV fluids started IV antibiotics. He is also hypokalemic will start potassium spoke to hospitalist will admit at this time. Lab Data 06/16/24 02:14 06/16/24 02:14 Labs/Radiology: Radiology Impressions Chest X-Ray 06/14/24 15:30 IMPRESSION: 1. Cardiac enlargement 2. Infiltrate in the RIGHT lower lobe suggesting pneumonia. Small RIGHT basal pleural effusion. Laboratory Results WBC 15.54 10^3/uL (3.29-11.43) H 06/14/24 16:17 RBC 5.33 10^6/uL (3.85-5.65) 06/14/24 16:17 Hgb 15.50 g/dL (11.27-16.99) 06/14/24 16:17 Hct 48.5 % (37-53) 06/14/24 16:17 MCV 91.0 fl (82-101) 06/14/24 16:17 MCH 29.1 pg (27-33) 06/14/24 16:17 MCHC 32.0 g/dL (30-55) 06/14/24 16:17 RDW 14.3 % (12.1-15.1) 06/14/24 16:17 Plt Count 199 10^3/cmm (157-399) 06/14/24 16:17 MPV 12.2 fL (7.4-10.4) H 06/14/24 16:17 Neut % (Auto) 92.1 % 06/14/24 16:17 Lymph % (Auto) 3.6 % 06/14/24 16:17 Frederick % (Auto) 3.7 % 06/14/24 16:17 Eos % (Auto) 0.0 % 06/14/24 16:17 Baso % (Auto) 0.1 % 06/14/24 16:17 Neut # (Auto) 14.32 10^3/uL (1.8-7.7) H 06/14/24 16:17 Lymph # (Auto) 0.6 10^3/uL (0.8-4.8) L 06/14/24 16:17 Frederick # (Auto) 0.6 10^3/uL (0.2-0.9) 06/14/24 16:17 Eos # (Auto) 0.0 10^3/uL (0.0-0.8) 06/14/24 16:17 Baso # (Auto) 0.0 10^3/uL (0.0-0.1) 06/14/24 16:17 Nucleated RBC % (auto) 0 % 06/14/24 16:17 Nucleated RBCs # 0.0 /100WBC 06/14/24 16:17 Specimen Type Arterial 06/14/24 15:48 Sample Site Radial, right 06/14/24 15:48 ABG pH 7.48 (7.35-7.45) H 06/14/24 15:48 ABG pCO2 26.2 mmHg (35-45) L 06/14/24 15:48 ABG pO2 63.7 mmHg (80.0-100.0) L 06/14/24 15:48 ABG PO2/FiO2 Ratio 159 06/14/24 15:48 ABG HCO3 19.2 mmol/L (22-26) L 06/14/24 15:48 ABG Base Excess -2.7 mmol/L (-2.0-2.0) L 06/14/24 15:48 Terry Test Pos 06/14/24 15:48 Hematocrit 44.1 % (42-52) 06/14/24 15:48 Hgb O2 Saturation 92.3 % (95-100) L 06/14/24 15:48 Carboxyhemoglobin 1.2 %THgb (0.4-20.1) 06/14/24 15:48 Methemoglobin 0.3 % (0.4-1.5) L 06/14/24 15:48 Total Hemoglobin 14.4 g/dL (14-18) 06/14/24 15:48 O2 Delivery Device Nc 06/14/24 15:48 O2 Liters/Min 5.0 % 06/14/24 15:48 FiO2 40.0 % 06/14/24 15:48 Self Propelled Hot Mix Roller Operator ID [email or web address] 06/14/24 15:48 Sodium Cancelled 06/14/24 17:25 Potassium Cancelled 06/14/24 17:25 Chloride Cancelled 06/14/24 17:25 Carbon Dioxide Cancelled 06/14/24 17:25 Anion Gap Cancelled 06/14/24 17:25 BUN Cancelled 06/14/24 17:25 Creatinine Cancelled 06/14/24 17:25 GFR Calculation Cancelled 06/14/24 17:25 Glucose Cancelled 06/14/24 17:25 Calculated Osmolality Cancelled 06/14/24 17:25 Lactic Acid 2.7 mmol/L (0.5-2.2) H 06/14/24 16:17 Calcium Cancelled 06/14/24 17:25 Total Bilirubin Cancelled 06/14/24 17:25 AST Cancelled 06/14/24 17:25 ALT Cancelled 06/14/24 17:25 Alkaline Phosphatase Cancelled 06/14/24 17:25 Total Protein Cancelled 06/14/24 17:25 Albumin Cancelled 06/14/24 17:25 Globulin Cancelled 06/14/24 17:25 Influenza A (PCR) Negative (Negative) 06/14/24 16:06 Influenza Type B (PCR) Negative (Negative) 06/14/24 16:06 RSV (PCR) Negative (Negative) 06/14/24 16:06 SARS-CoV-2 (PCR) Negative (Negative) 06/14/24 16:06 No radiology studies performed this visit Discharge Plan Discharge Patient Disposition: Admitted As Inpatient Admit Provider: Cindy Mccauley Clinical Impression: Pneumonia, Hypokalemia, Sepsis Condition: Stable Coding Level of Care Code ED Chemical Processing Supervisor for Chg Dorothy
[2024-06-14 16:00] LABS: ABG PCO2 26.2 mmHg (35-45); ABG PH Result 7.48 (7.35-7.45); Arterial Blood Gas Hematocrit 44.1 % (42-52); Base Excess ABG -2.7 mmol/L (-2.0-2.0); Blood Gas Allen Test Pos; Blood Gas Operator Identificat glc; Blood Gas Sample Site Radial, right; Blood Gas Sample Type Arterial; Carboxyhemoglobin 1.2 %THgb (0.4-20.1); HCO3 ABG 19.2 mmol/L (22-26); HGB O2 Sat 92.3 % (95-100); Methemoglobin 0.3 % (0.4-1.5); Oxygen Device NC; PO2 ABG 63.7 mmHg (80.0-100.0); PO2 FiO2 Ratio Arterial Blood 159; Total Hemoglobin 14.4 g/dL (14-18)
[2024-06-14] MEDS: methylPREDNISolone sod succ 125 mg/2 mL INJ IV (16:02)
[2024-06-14 16:44] LABS: Basophils % 0.1 %; Hematocrit 48.5 % (37-53); Lymphocytes # 0.6 10^3/uL (0.8-4.8); Lymphocytes % 3.6 %; Mean Corpuscular Hemoglobin 29.1 pg (27-33); Mean Platelet Volume 12.2 fL (7.4-10.4); Monocytes # 0.6 10^3/uL (0.2-0.9); Monocytes % 3.7 %; Neutrophils # 14.32 10^3/uL (1.8-7.7); Neutrophils % 92.1 %; Nucleated Red Blood Cells % 0 %; Platelet Count 199 10^3/cmm (157-399); Red Blood Count 5.33 10^6/uL (3.85-5.65); Red Cell Distribution Width 14.3 % (12.1-15.1); White Blood Count 15.54 10^3/uL (3.29-11.43)
[2024-06-14] MEDS: cefTRIAXone 1,000 mg SDV 1000 MG IVP (16:50)
[2024-06-14] MEDS: AZITHROMYCIN ADD-Vantage 500 MG in 0.9% NaCl ADD-Vantage 250 ML 250 MG IV (16:51)
[2024-06-14] MEDS: ipratropium-albuterol 3 mL Neb INHALATION ×2 (17:02→21:03)
--- NOTE | 2024-06-14 17:05 | ECG_ITS ---
[facility] [employer] Test Date: 2024-06-14 Pat Name: Luis Morales Department: Room: 107 Gender: Male Compensation Expert: : [id number] Requested By: Stella Shannon Order Number: [id number] Tiffanie MD: Tiffanie Giraldo M.D. Measurements Intervals [place] Rate: 110 P: 0 ND: 0 QRS: -9 QRSD: 108 T: 214 QT: 354 QTc: 480 Interpretive Statements ATRIAL FIBRILLATION WITH RAPID VENTRICULAR RESPONSE WITH ABERRANT CONDUCTION OR VENTRICULAR PREMATURE COMPLEXES ANTERIOR MYOCARDIAL INFARCTION , PROBABLY RECENT [40+ ms Q WAVE AND/OR ST/T ABNORMALITY IN V3/V4] INFERIOR MYOCARDIAL INFARCTION , OF INDETERMINATE AGE [40+ ms Q WAVE AND/OR ST/T ABNORMALITY IN II/aVF] ACUTE IN Compared to ECG 06/14/2024 15:18:21 Ventricular premature complex(es) now present Aberrant conduction of supraventricular beat(s) now present Myocardial infarct finding still present Electronically Signed On 06-15-2024 08:43:33 CDT by Tiffanie Giraldo M.D. [email or web address]
[2024-06-14 17:27] LABS: Lactic Sepsis W/Reflex 2.7 mmol/L (0.5-2.2)
[2024-06-14] MEDS: sodium chloride 0.9% 1,000 ML 999 ML IV ×2 (17:28)
[2024-06-14] MEDS: sodium chloride 0.9% 250 ML IV (17:29)
[2024-06-14] MEDS: acetaminophen 650 mg Supp PR (17:33)
--- NOTE | 2024-06-14 17:52 | P.HP_ITS ---
Providers/Chief Complaint 2 Admitting Physician: Cindy Mccauley MD Primary Care Provider: Saurabh Magaña DO Chief Complaint: Resp Distress History of Present Illness Luis Morales is a 89 year old male with past medical history of CVA, hemiplegia and hemiparesis following cerebral infarction affecting right dominant side, atrial fibrillation, chronic diastolic congestive heart failure, was sent from [facility] for respiratory distress for 2 hours. He was saturating 90% on 4 L nasal cannula and later 98% on nonrebreather with A-fib with RVR at 150 bpm. He denies any complaint of chest pain, shortness of breath or cough. On further questioning he says 'I do not know'. He is a poor historian, could have underlying dementia, although no mention of dementia in the previous chart. He was recently admitted on 05/18/2024 for acute stroke. He was discharged to nursing facility for rehab. In ER he was found to be hypoxic, hypotensive. He received septic bolus, IV ceftriaxone and azithromycin x 1 WBC count was 15.5 ABG showed 7.4/26/63/19/92% on 5 L nasal cannula Lactic acid 2.7 CXR-MPRESSION: 1. Cardiac enlargement 2. Infiltrate in the RIGHT lower lobe suggesting pneumonia. Small RIGHT basal pleural effusion. EKG showed A-fib at 89 bpm, no acute ST-T changes Review of Systems 2 General: Reports: ROS unobtainable due to mental status Medications/Allergies Home Medications ?Medication ?Instructions ?Recorded ?Confirmed ?Last Taken ?Type aspirin 81 mg tablet,delayed 81 mg PO DAILY 05/19/24 0 06/14/24 06/14/24 History release (Nevaeh Low Dose Aspirin) amoxicillin 875 mg-potassium 1 tab PO BID 06/14/24 Unknown History clavulanate 125 mg tablet atorvastatin 80 mg tablet 80 mg PO QPM 06/14/2406/13/24 History levothyroxine 25 mcg tablet 25 mcg PO DAILY 06/14/24 0 06/14/24 06/14/24 History metoprolol tartrate 50 mg tablet 50 mg PO BID 06/14/24 06/14/24 06/14/24 History prednisone 20 mg tablet 40 mg PO DAILY 06/14/2405/25 Unknown History Allergies Allergy/AdvReac Type Severity Reaction Status Date / Time No Known Drug Allergies Allergy Unknown Verified 06/14/24 15:29 PFSH Acute 2 PFSH: Medical History (Updated 06/14/24 @ 18:57 by Cindy Mccauley MD) Hypertension Surgical History No pertinent past surgical history Vitals/I&O/Wt Last Vital Signs Temp 100.6 F H 06/14/24 17:00 Pulse 144 H 06/14/24 17:44 Resp 19 H 06/14/24 17:44 BP 130/107 06/14/24 17:44 Pulse Ox 96 06/14/24 17:44 O2 Del Method Nasal Cannula 06/14/24 17:04 O2 Flow Rate 5 06/14/24 17:04 Weight last 48 hrs Weight 68.492 kg Physical Exam 2 Narrative: He is alert, awake, oriented to self, not in acute distress Chest clear to auscultation bilaterally Cardiovascular normal heart sounds no murmurs Abdomen soft nontender nondistended normal bowel sounds Extremity no edema present left lower extremity, minimal edema present right lower extremity Neurological right upper and lower extremity hemiplegia with hemiparesis. Data 06/14/24 16:17 06/14/24 18:26 Micro: Microbiology 06/14/24 16:20 Blood Culture - Preliminary Blood SPECIMEN COLLECTED 06/14/24 16:17 Blood Culture - Preliminary Blood SPECIMEN COLLECTED A&P Assessment and plan (1) Pneumonia: (2) Hypokalemia: (3) Atrial fibrillation with rapid ventricular response: (4) Cerebrovascular accident: (5) Hypothyroidism: Plan Luis Morales is a 89 year old male with past medical history of CVA, hemiplegia and hemiparesis following cerebral infarction affecting right dominant side, atrial fibrillation, chronic diastolic congestive heart failure, was sent from [facility] for respiratory distress for 2 hours. He was saturating 90% on 4 L nasal cannula and later 98% on nonrebreather with A-fib with RVR at 150 bpm. In ER he was found to be hypoxic, hypotensive. He received septic bolus, IV ceftriaxone and azithromycin x 1 WBC count was 15.5 ABG showed 7.4/26/63/19/92% on 5 L nasal cannula Lactic acid 2.7 CXR-MPRESSION: 1. Cardiac enlargement 2. Infiltrate in the RIGHT lower lobe suggesting pneumonia. Small RIGHT basal pleural effusion. EKG showed A-fib at 89 bpm, no acute ST-T changes Admit to CSU Acute hypoxic respiratory failure-likely secondary to right lower lobe pneumonia Received 2 L normal saline bolus in ED IV ceftriaxone and IV azithromycin x 1 Had a rectal temperature of 100.6, received [place] Tylenol Will continue IV ceftriaxone and azithromycin daily DuoNebs every 6 hours Supplemental oxygen to keep saturation more than 90% RT assess and treat Follow-up respiratory panel and blood cultures Atrial fibrillation-currently rate controlled Continue cardiac telemetry monitoring Continue HOSPITALIST PROGRAM DIRECTOR aspirin, atorvastatin and metoprolol 2D echo from 05/17 showed- CONCLUSIONS Severe diffuse hypokinesia of the left ventricule with an ejection fraction of around 25%. Normal LV size. Right ventricle appears to be normal size with mildly diminished ejection fraction. Mildly increased right atrial size. Severely dilated left atrium with volume index as systolic volume index of 68.4 mL/m squared. Thickened mitral valve. Moderate mitral valve regurgitatio. Thickened aortic valve. Mild to moderate aortic valve regurgitation. [id number] tricuspid valve regurgitation. Moderate pulmonary hypertension with an estimated pulmonary artery peak systolic pressure 54 mmHg. Mild pulmonary valve regurgitation. Saline contrast injection revealed no evidence of the right left shunt There is no pericardial effusion. Hypothyroidism-continue HOSPITALIST PROGRAM DIRECTOR levothyroxine Will check TSH GI prophylaxis with IV Pepcid 20 mg twice daily DVT prophylaxis with subcutaneous Lovenox CODE STATUS as per [facility] records, he is DNR/DNI. PDMP PDMP Reviewed: Not Reviewed Attestations 2 Medical Necessity Statement*: He needs continued hospitalization crossing 2 midnights for management of acute hypoxic respiratory failure, pneumonia with IV antibiotics, fluids and supportive care. Time Spent in Patient Care: 40 minutes Coding Level of Care Code Acute Code for g Fwd Diagnoses Pneumonia J18.9 Hypokalemia E87.6 Atrial fibrillation with rapid ventricular response I48.91 Cerebrovascular accident I63.9 Hypothyroidism E03.9 Time Spent (min) 40
[2024-06-14 18:09] LABS: Influenza A NEGATIVE (Negative); Influenza B NEGATIVE (Negative); Respiratory Syncytial Virus Ce NEGATIVE (Negative); SARS-CoV-2 PCR NEGATIVE (Negative)
[2024-06-14 18:11] LABS: Glucose Point of Care 263 mg/dL (70-110)
[2024-06-14 18:22] LABS: Reflex Lactate Order REFLEX LACTIC ORDERD
[2024-06-14 18:56] LABS: Alanine Aminotransferase 41 U/L (0-41); Albumin Level 3.4 g/dL (3.5-5.2); Alkaline Phosphatase 81 U/L (40-130); Blood Urea Nitrogen 32 mg/dL (8-23); Calcium 8.1 mg/dL (8.5-10.5); Carbon Dioxide 13 mmol/L (22-29); Chloride 108 mmol/L (98-107); Creatinine Clr Calc Pharmacy 52.7762; Globulin 3.3 g/dL (1.3-4.6); Glucose 160 mg/dL (65-115); Osmolality Calculated 302 mOsm/kg (285-295); Sodium 141 mmol/L (136-145); Total Bilirubin 0.8 mg/dL (0.15-1.2); Total Protein 6.7 g/dL (6.6-8.7)
[2024-06-14 18:59] LABS: Anion Gap 24.5 (5-19); Aspartate Amino Transferase 47 U/L (0-40); Potassium 4.5 mmol/L (3.5-5.1)
[2024-06-14 19:03] LABS: Magnesium 1.9 mg/dL (1.7-2.3)
[2024-06-14] MEDS: enoxaparin 40 mg/0.4 mL Syringe SUBCUT (19:54)
[2024-06-14] MEDS: potassium chloride ER 20 mEq Tablet 80 MEQ PO (19:55)
[2024-06-14] MEDS: famotidine 20 mg/2 mL INJ IVP (19:55)
[2024-06-14] MEDS: metoprolol tartrate 50 mg Tablet PO (19:55)
[2024-06-14] MEDS: atorvastatin 40 mg Tablet 80 MG PO (19:56)
[2024-06-14 20:03] LABS: Glucose Point of Care 179 mg/dL (70-110)
[2024-06-14 20:11] LABS: Lactic Acid level (Lactate) 5.7 mmol/L (0.5-2.2)
[2024-06-15] VITALS (14 sets, daily range): BP systolic 99–135; BP diastolic 59–96; PULSE 71–105; RESP 10–120; TEMP 36.4–37; O2SAT 92–99
[2024-06-15] MEDS: ipratropium-albuterol 3 mL Neb INHALATION ×4 (03:38→20:39)
--- NOTE | 2024-06-15 03:58 | PC.NURSE ---
Patient has course crackles in lower left lobe. He received 2500mL NS in ER and had order for NS 75ml/hr. Dr Pike was notified and gave order to hold fluids.
[2024-06-15] MEDS: famotidine 20 mg/2 mL INJ IVP ×2 (05:17→17:56)
[2024-06-15 06:26] LABS: Glucose Point of Care 246 mg/dL (70-110)
[2024-06-15 06:33] LABS: Basophils % 0.2 %; Hematocrit 45.8 % (37-53); Lymphocytes # 0.8 10^3/uL (0.8-4.8); Lymphocytes % 3.8 %; Mean Corpuscular HGB Conc 31.4 g/dL (30-55); Mean Corpuscular Volume 92.3 fl (82-101); Mean Platelet Volume 10.6 fL (7.4-10.4); Monocytes # 0.4 10^3/uL (0.2-0.9); Monocytes % 1.9 %; Neutrophils # 19.42 10^3/uL (1.8-7.7); Neutrophils % 93.6 %; Nucleated Red Blood Cells % 0 %; Platelet Count 207 10^3/cmm (157-399); Red Blood Count 4.96 10^6/uL (3.85-5.65); Red Cell Distribution Width 14.4 % (12.1-15.1); White Blood Count 20.75 10^3/uL (3.29-11.43)
[2024-06-15 07:03] LABS: Anion Gap 16.4 (5-19); Blood Urea Nitrogen 27 mg/dL (8-23); Calcium 8.3 mg/dL (8.5-10.5); Carbon Dioxide 19 mmol/L (22-29); Chloride 113 mmol/L (98-107); Creatinine Clr Calc Pharmacy 53.1763; Glucose 213 mg/dL (65-115); Osmolality Calculated 309 mOsm/kg (285-295); Potassium 4.4 mmol/L (3.5-5.1); Sodium 144 mmol/L (136-145); Thyroid Stimulating Hormone 1.71 uIU/mL (0.27-4.20)
[2024-06-15 07:09] LABS: NT Pro B Type Natriuretic Pept 26287 pg/mL (0-450)
[2024-06-15] MEDS: levothyroxine 25 mcg Tablet PO (09:09)
[2024-06-15] MEDS: aspirin 81 mg EC Tablet PO (09:09)
[2024-06-15] MEDS: piperacillin-tazobactam 3.375 GM in sodium chloride 0.9% (plus) 50 ML IV ×2 (09:10→14:45)
[2024-06-15] MEDS: metoprolol tartrate 50 mg Tablet PO ×2 (09:10→17:57)
[2024-06-15 11:53] LABS: Glucose Point of Care 203 mg/dL (70-110)
--- NOTE | 2024-06-15 12:13 | P.PN_ITS ---
Subjective 2 Subjective: No acute overnight events noted. Medications: Reviewed: Yes Vitals/I&O/Wt Last Vital Signs Temp 98.6 F 06/15/24 07:42 Pulse 87 06/15/24 08:12 Resp 16 06/15/24 08:02 BP 117/79 06/15/24 07:42 Pulse Ox 98 06/15/24 08:12 O2 Del Method Nasal Cannula 06/15/24 08:12 O2 Flow Rate 4 06/15/24 08:12 06/14/24 06/15/24 06/15/24 22:59 06:59 14:59 Intake Total 2700 / 2700 100 / 2800 880 / 880 Balance 2700 / 2700 100 / 2800 880 / 880 Weight last 48 hrs Weight 69.763 kg Weight 71.441 kg Weight 68.492 kg Physical Exam 2 Narrative: He is alert, awake, oriented to self, not in acute distress Chest clear to auscultation bilaterally Cardiovascular normal heart sounds no murmurs Abdomen soft nontender nondistended normal bowel sounds Extremity no edema present left lower extremity, minimal edema present right lower extremity Neurological right upper and lower extremity hemiplegia with hemiparesis. Data 06/15/24 05:55 06/15/24 05:55 Micro: Microbiology 06/14/24 16:20 Blood Culture - Preliminary Blood SPECIMEN COLLECTED 06/14/24 16:17 Blood Culture - Preliminary Blood SPECIMEN COLLECTED A&P Assessment and plan (1) Pneumonia: (2) Hypokalemia: (3) Atrial fibrillation with rapid ventricular response: (4) Cerebrovascular accident: (5) Hypothyroidism: Plan Luis Morales is a 89 year old male with past medical history of CVA, hemiplegia and hemiparesis following cerebral infarction affecting right dominant side, atrial fibrillation, chronic diastolic congestive heart failure, was sent from [facility] for respiratory distress for 2 hours. He was saturating 90% on 4 L nasal cannula and later 98% on nonrebreather with A-fib with RVR at 150 bpm. In ER he was found to be hypoxic, hypotensive. He received septic bolus, IV ceftriaxone and azithromycin x 1 WBC count was 15.5 ABG showed 7.4/26/63/19/92% on 5 L nasal cannula Lactic acid 2.7 CXR-MPRESSION: 1. Cardiac enlargement 2. Infiltrate in the RIGHT lower lobe suggesting pneumonia. Small RIGHT basal pleural effusion. EKG showed A-fib at 89 bpm, no acute ST-T changes Admit to CSU Acute hypoxic respiratory failure-likely secondary to right lower lobe pneumonia Received 2 L normal saline bolus in ED IV ceftriaxone and IV azithromycin x 1 Had a rectal temperature of 100.6, received [place] Tylenol Will continue IV ceftriaxone and azithromycin daily DuoNebs every 6 hours Supplemental oxygen to keep saturation more than 90% RT assess and treat Follow-up respiratory panel and blood cultures Atrial fibrillation-currently rate controlled Continue cardiac telemetry monitoring Continue RUBBER OFF aspirin, atorvastatin and metoprolol 2D echo from 05/17 showed- CONCLUSIONS Severe diffuse hypokinesia of the left ventricule with an ejection fraction of around 25%. Normal LV size. Right ventricle appears to be normal size with mildly diminished ejection fraction. Mildly increased right atrial size. Severely dilated left atrium with volume index as systolic volume index of 68.4 mL/m squared. Thickened mitral valve. Moderate mitral valve regurgitatio. Thickened aortic valve. Mild to moderate aortic valve regurgitation. [id number] tricuspid valve regurgitation. Moderate pulmonary hypertension with an estimated pulmonary artery peak systolic pressure 54 mmHg. Mild pulmonary valve regurgitation. Saline contrast injection revealed no evidence of the right left shunt There is no pericardial effusion. Hypothyroidism-continue RUBBER OFF levothyroxine Will check TSH GI prophylaxis with IV Pepcid 20 mg twice daily DVT prophylaxis with subcutaneous Lovenox CODE STATUS as per alf records, he is DNR/DNI. 06/15/24 WBC trending up to 15.5--->20.7 although he clinically does look better as compared to admission. Lactic acid 2.7-->5.7. pro BNP 64091, received 2 l NS bolus in ED yesterday. Respiratory panel negative. Will change antibiotics to broad spectrum and do Iv zosyn 3.375mg q8h. Afib rate controlled. TSH 1.7. Continue supplemental oxygen. Will repeat CXR in am for fluid overload. Aspiration precautions. Continue to monitor in CSU. PDMP PDMP Reviewed: Not Reviewed Attestations 2 Medical Necessity Statement*: He needs continued hospitalization crossing 2 midnights for management of acute hypoxic respiratory failure, pneumonia with IV antibiotics, fluids and supportive care. Time Spent in Patient Care: 20 minutes Coding Level of Care Code Acute Code for [facility] Diagnoses Pneumonia J18.9 Hypokalemia E87.6 Atrial fibrillation with rapid ventricular response I48.91 Cerebrovascular accident I63.9 Hypothyroidism E03.9 Time Spent (min) 20
--- NOTE | 2024-06-15 13:37 | PC.NURSE ---
[employer] is here now to apple picking supervisor the pt via stretcher. All pt's belongings are sent with her.
[2024-06-15 15:54] LABS: Glucose Point of Care 262 mg/dL (70-110)
[2024-06-15] MEDS: atorvastatin 40 mg Tablet 80 MG PO (17:56)
[2024-06-15] MEDS: enoxaparin 40 mg/0.4 mL Syringe SUBCUT (17:57)
[2024-06-15 21:21] LABS: Glucose Point of Care 162 mg/dL (70-110)
[2024-06-16] VITALS (15 sets, daily range): BP systolic 115–147; BP diastolic 72–90; PULSE 73–103; RESP 10–28; TEMP 36.4–36.6; O2SAT 91–99
[2024-06-16] MEDS: piperacillin-tazobactam 3.375 GM in sodium chloride 0.9% (plus) 50 ML IV ×4 (00:08→23:44)
[2024-06-16] MEDS: ipratropium-albuterol 3 mL Neb INHALATION ×4 (02:12→20:24)
[2024-06-16 02:27] LABS: Basophils % 0.1 %; Eosinophils % 0.1 %; Hematocrit 38.6 % (37-53); Lymphocytes % 7.7 %; Mean Corpuscular HGB Conc 31.6 g/dL (30-55); Mean Corpuscular Hemoglobin 29.6 pg (27-33); Mean Corpuscular Volume 93.7 fl (82-101); Mean Platelet Volume 10.8 fL (7.4-10.4); Monocytes # 0.8 10^3/uL (0.2-0.9); Monocytes % 5.8 %; Neutrophils # 11.24 10^3/uL (1.8-7.7); Neutrophils % 85.8 %; Nucleated Red Blood Cells % 0 %; Platelet Count 179 10^3/cmm (157-399); Red Blood Count 4.12 10^6/uL (3.85-5.65); Red Cell Distribution Width 14.6 % (12.1-15.1); White Blood Count 13.09 10^3/uL (3.29-11.43)
[2024-06-16 02:48] LABS: Anion Gap 13.1 (5-19); Blood Urea Nitrogen 24 mg/dL (8-23); Calcium 8.1 mg/dL (8.5-10.5); Carbon Dioxide 20 mmol/L (22-29); Chloride 112 mmol/L (98-107); Creatinine Clr Calc Pharmacy 53.1763; Glucose 130 mg/dL (65-115); Osmolality Calculated 298 mOsm/kg (285-295); Potassium 4.1 mmol/L (3.5-5.1); Sodium 141 mmol/L (136-145)
[2024-06-16 06:10] LABS: Glucose Point of Care 130 mg/dL (70-110)
[2024-06-16] MEDS: famotidine 20 mg/2 mL INJ IVP ×2 (06:33→16:45)
--- NOTE | 2024-06-16 07:00 | XR_ITS ---
WS: [id number] Exam: XR chest 1V portable [id number] Date/Time of Exam: 06/16/2024 6:56 AM Reason For Exam: pneumonia Comparison 06/14/2024. RIGHT lower lobe infiltrate shows improvement. No significant pleural effusion is noted. Remaining lung gu are clear. No pneumothorax. Mild cardiomegaly unchanged. The mediastinum is normal in contour. Bony structures are intact. IMPRESSION1. Improved RIGHT lower lobe pneumonia.
[2024-06-16] MEDS: levothyroxine 25 mcg Tablet PO (08:08)
[2024-06-16] MEDS: aspirin 81 mg EC Tablet PO (08:08)
[2024-06-16] MEDS: metoprolol tartrate 50 mg Tablet PO (08:09)
[2024-06-16 11:13] LABS: Glucose Point of Care 155 mg/dL (70-110)
--- NOTE | 2024-06-16 13:02 | PM.PN ---
Subjective Subjective: No acute overnight events noted. Seen at bedside this morning. Was able to comprehend and answer questions appropriately although seemed confused intermittently. Medications: Reviewed: Yes Vitals/I&O/Wt Last Vital Signs Temp 97.6 F 06/16/24 08:00 Pulse 84 06/16/24 08:00 Resp 24 H 06/16/24 08:00 BP 147/73 06/16/24 08:00 Pulse Ox 97 06/16/24 08:00 O2 Del Method Nasal Cannula 06/16/24 08:00 O2 Flow Rate 1 06/16/24 08:00 06/15/24 06/16/24 06/16/24 22:59 06:59 14:59 Intake Total 350 / 1280 150 / 1430 120 / 120 Balance 350 / 1280 150 / 1430 120 / 120 Weight last 48 hrs Weight 70.443 kg Weight 69.763 kg Weight 71.441 kg Weight 68.492 kg Physical Exam Narrative: He is alert, awake, oriented to self, not in acute distress Chest clear to auscultation bilaterally Cardiovascular normal heart sounds no murmurs Abdomen soft nontender nondistended normal bowel sounds Extremity no edema present left lower extremity, minimal edema present right lower extremity Neurological right upper and lower extremity hemiplegia with hemiparesis. Data 06/16/24 02:14 06/16/24 02:14 Micro: Microbiology 06/14/24 16:20 Blood Culture - Preliminary Blood NEGATIVE TO DATE 06/14/24 16:17 Blood Culture - Preliminary Blood NEGATIVE TO DATE A&P Assessment and plan (1) Pneumonia: (2) Hypokalemia: (3) Atrial fibrillation with rapid ventricular response: (4) Cerebrovascular accident: (5) Hypothyroidism: Plan Luis Morales is a 89 year old male with past medical history of CVA, hemiplegia and hemiparesis following cerebral infarction affecting right dominant side, atrial fibrillation, chronic diastolic congestive heart failure, was sent from [facility] for respiratory distress for 2 hours. He was saturating 90% on 4 L nasal cannula and later 98% on nonrebreather with A-fib with RVR at 150 bpm. In ER he was found to be hypoxic, hypotensive. He received septic bolus, IV ceftriaxone and azithromycin x 1 WBC count was 15.5 ABG showed 7.4/26/63/19/92% on 5 L nasal cannula Lactic acid 2.7 CXR-MPRESSION: 1. Cardiac enlargement 2. Infiltrate in the RIGHT lower lobe suggesting pneumonia. Small RIGHT basal pleural effusion. EKG showed A-fib at 89 bpm, no acute ST-T changes Admit to CSU Acute hypoxic respiratory failure-likely secondary to right lower lobe pneumonia Received 2 L normal saline bolus in ED IV ceftriaxone and IV azithromycin x 1 Had a rectal temperature of 100.6, received NE Tylenol Will continue IV ceftriaxone and azithromycin daily DuoNebs every 6 hours Supplemental oxygen to keep saturation more than 90% RT assess and treat Follow-up respiratory panel and blood cultures Atrial fibrillation-currently rate controlled Continue cardiac telemetry monitoring Continue POOLROOM TABLE ATTENDANT aspirin, atorvastatin and metoprolol 2D echo from 05/17 showed- CONCLUSIONS Severe diffuse hypokinesia of the left ventricule with an ejection fraction of around 25%. Normal LV size. Right ventricle appears to be normal size with mildly diminished ejection fraction. Mildly increased right atrial size. Severely dilated left atrium with volume index as systolic volume index of 68.4 mL/m squared. Thickened mitral valve. Moderate mitral valve regurgitatio. Thickened aortic valve. Mild to moderate aortic valve regurgitation. [id number]-sx-[id number] tricuspid valve regurgitation. Moderate pulmonary hypertension with an estimated pulmonary artery peak systolic pressure 54 mmHg. Mild pulmonary valve regurgitation. Saline contrast injection revealed no evidence of the right left shunt There is no pericardial effusion. Hypothyroidism-continue POOLROOM TABLE ATTENDANT levothyroxine Will check TSH GI prophylaxis with IV Pepcid 20 mg twice daily DVT prophylaxis with subcutaneous Lovenox CODE STATUS as per skilled nursing records, he is DNR/DNI. 06/15/24 WBC trending up to 15.5--->20.7 although he clinically does look better as compared to admission. Lactic acid 2.7-->5.7. pro BNP 79604, received 2 l NS bolus in ED yesterday. Respiratory panel negative. Will change antibiotics to broad spectrum and do Iv zosyn 3.375mg q8h. Afib rate controlled. TSH 1.7. Continue supplemental oxygen. Will repeat CXR in am for fluid overload. Aspiration precautions. Continue to monitor in CSU. 06/16/24 WBC count trending down to 13.0, continue IV Zosyn for now. Chest x-ray done this morning showed improvement of left lower lobe pneumonia. Informed by case management that patient's son wants to take him home. Hence follow case management for discharge planning and home health services. Anticipating discharge in a.m. PDMP PDMP Reviewed: Not Reviewed Attestations Medical Necessity Statement*: Anticipating discharge in a Time Spent in Patient Care: 15 minutes Coding Level of Care Code Acute Code for Chg Fwd Diagnoses Pneumonia J18.9 Hypokalemia E87.6 Atrial fibrillation with rapid ventricular response I48.91 Cerebrovascular accident I63.9 Hypothyroidism E03.9 Time Spent (min) 15
[2024-06-16] MEDS: LORazepam 2 mg/mL INJ 1 mL 0.5 MG IVP (14:36)
[2024-06-16] MEDS: sodium chloride 0.9% 1,000 ML 75 ML IV (16:45)
--- NOTE | 2024-06-16 17:14 | PC.OT ---
OT orders received to evaluate and treat. Nursing states pt. was agitated when family left, medication was given, and now he is asleep and should not be awakened. Evaluation to be attempted at another time.
[2024-06-16 18:13] LABS: Glucose Point of Care 128 mg/dL (70-110)
[2024-06-16 20:11] LABS: Glucose Point of Care 135 mg/dL (70-110)
[2024-06-17] VITALS (9 sets, daily range): BP systolic 132–146; BP diastolic 93–101; PULSE 24–112; RESP 14–94; TEMP 36.3–36.4; O2SAT 95–98
[2024-06-17] MEDS: ipratropium-albuterol 3 mL Neb INHALATION ×3 (02:14→13:05)
[2024-06-17 03:01] LABS: Basophils % 0.1 %; Eosinophils # 0.1 10^3/uL (0.0-0.8); Eosinophils % 0.8 %; Hematocrit 38.7 % (37-53); Lymphocytes # 1.2 10^3/uL (0.8-4.8); Mean Corpuscular HGB Conc 31.3 g/dL (30-55); Mean Corpuscular Hemoglobin 28.8 pg (27-33); Mean Corpuscular Volume 92.1 fl (82-101); Mean Platelet Volume 10.8 fL (7.4-10.4); Monocytes # 0.6 10^3/uL (0.2-0.9); Neutrophils # 7.25 10^3/uL (1.8-7.7); Neutrophils % 79.6 %; Nucleated Red Blood Cells % 0 %; Platelet Count 182 10^3/cmm (157-399); Red Cell Distribution Width 14.6 % (12.1-15.1); White Blood Count 9.11 10^3/uL (3.29-11.43)
[2024-06-17 03:37] LABS: Anion Gap 14.9 (5-19); Blood Urea Nitrogen 16 mg/dL (8-23); Calcium 8.1 mg/dL (8.5-10.5); Carbon Dioxide 21 mmol/L (22-29); Chloride 110 mmol/L (98-107); Creatinine Clr Calc Pharmacy 53.3904; Glucose 127 mg/dL (65-115); Osmolality Calculated 297 mOsm/kg (285-295); Potassium 3.9 mmol/L (3.5-5.1); Sodium 142 mmol/L (136-145)
[2024-06-17] MEDS: famotidine 20 mg/2 mL INJ IVP (05:29)
[2024-06-17 06:07] LABS: Glucose Point of Care 184 mg/dL (70-110)
[2024-06-17] MEDS: aspirin 81 mg EC Tablet PO (08:59)
[2024-06-17] MEDS: metoprolol tartrate 50 mg Tablet PO (08:59)
[2024-06-17] MEDS: levothyroxine 25 mcg Tablet PO (08:59)
--- NOTE | 2024-06-17 09:25 | PM.DCS ---
Discharge Providers Date of Admission: 06/14/24 17:38 Date of Discharge: June 17, 2024 Attending Provider at Admission: Cindy Mccauley MD Attending Provider at Discharge: Cindy Mccauley MD Primary Care Provider: Saurabh Magaña DO Diagnoses at Discharge Discharge Diagnosis (1) Pneumonia: Status: Acute (2) Hypokalemia: Status: Acute (3) Atrial fibrillation with rapid ventricular response: Status: Acute (4) Cerebrovascular accident: Status: Acute (5) Hypothyroidism: Status: Acute Reason for Visit Reason for Visit: Resp Distress Brief History: Luis Morales is a 89 year old male with past medical history of CVA, hemiplegia and hemiparesis following cerebral infarction affecting right dominant side, atrial fibrillation, chronic diastolic congestive heart failure, was sent from [facility] for respiratory distress for 2 hours. He was saturating 90% on 4 L nasal cannula and later 98% on nonrebreather with A-fib with RVR at 150 bpm. He denies any complaint of chest pain, shortness of breath or cough. On further questioning he says 'I do not know'. He is a poor historian, could have underlying dementia, although no mention of dementia in the previous chart. He was recently admitted on 05/18/2024 for acute stroke. He was discharged to nursing facility for rehab. In ER he was found to be hypoxic, hypotensive. He received septic bolus, IV ceftriaxone and azithromycin x 1 WBC count was 15.5 ABG showed 7.4//63/19/92% on 5 L nasal cannula Lactic acid 2.7 CXR-MPRESSION: 1. Cardiac enlargement 2. Infiltrate in the RIGHT lower lobe suggesting pneumonia. Small RIGHT basal pleural effusion. EKG showed A-fib at 89 bpm, no acute ST-T changes Hospital Course Hospital Course Acute hypoxic respiratory failure-likely secondary to right lower lobe pneumonia Received 2 L normal saline bolus in ED IV ceftriaxone and IV azithromycin x 1 Had a rectal temperature of 100.6, received GA Tylenol Will continue IV ceftriaxone and azithromycin daily DuoNebs every 6 hours Supplemental oxygen to keep saturation more than 90% RT assess and treat Follow-up respiratory panel and blood cultures Atrial fibrillation-currently rate controlled Continue cardiac telemetry monitoring Continue LPN MEDICAL ASSISTANT aspirin, atorvastatin and metoprolol 06/15/24 WBC trending up to 15.5--->20.7 although he clinically does look better as compared to admission. Lactic acid 2.7-->5.7. pro BNP 98614, received 2 l NS bolus in ED yesterday. Respiratory panel negative. Will change antibiotics to broad spectrum and do Iv zosyn 3.375mg q8h. Acute hypoxic respiratory failure resolved, leucocytosis resolved. He is hemodynamically stable and feeling better. Repeat chest x-ray showed improvement of left lower lobe pneumonia. His son wants to take him home, will discharge with home health services. Physical Exam Narrative: He is alert, awake, oriented to self, not in acute distress Chest clear to auscultation bilaterally Cardiovascular normal heart sounds no murmurs Abdomen soft nontender nondistended normal bowel sounds Extremity no edema present left lower extremity, minimal edema present right lower extremity Neurological right upper and lower extremity hemiplegia with hemiparesis. Discharge Data Studies Completed and Pending Completed Studies During Hospitalization Category Date Time Status XR chest 1V portable [id number] Routine Exams 06/16/24 07:00 Completed XR chest 1V portable [id number] Stat Exams 06/14/24 15:30 Completed Pending at discharge Category Date Time Status Blood Culture Stat Lab 06/14/24 16:20 Results Laboratory Results WBC 9.11 10^3/uL (3.29-11.43) 06/17/24 02:32 RBC 4.20 10^6/uL (3.85-5.65) 06/17/24 02:32 Hgb 12.10 g/dL (11.27-16.99) 06/17/24 02:32 Hct 38.7 % (37-53) 06/17/24 02:32 MCV 92.1 fl (82-101) 06/17/24 02:32 MCH 28.8 pg (27-33) 06/17/24 02:32 MCHC 31.3 g/dL (30-55) 06/17/24 02:32 RDW 14.6 % (12.1-15.1) 06/17/24 02:32 Plt Count 182 10^3/cmm (157-399) 06/17/24 02:32 MPV 10.8 fL (7.4-10.4) H 06/17/24 02:32 Neut % (Auto) 79.6 % 06/17/24 02:32 Lymph % (Auto) 13.0 % 06/17/24 02:32 [place] % (Auto) 6.0 % 06/17/24 02:32 Eos % (Auto) 0.8 % 06/17/24 02:32 Baso % (Auto) 0.1 % 06/17/24 02:32 Neut # (Auto) 7.25 10^3/uL (1.8-7.7) 06/17/24 02:32 Lymph # (Auto) 1.2 10^3/uL (0.8-4.8) 06/17/24 02:32 [place] # (Auto) 0.6 10^3/uL (0.2-0.9) 06/17/24 02:32 Eos # (Auto) 0.1 10^3/uL (0.0-0.8) 06/17/24 02:32 Baso # (Auto) 0.0 10^3/uL (0.0-0.1) 06/17/24 02:32 Nucleated RBC % (auto) 0 % 06/17/24 02:32 Nucleated RBCs # 0.0 /100WBC 06/17/24 02:32 Specimen Type Arterial 06/14/24 15:48 Sample Site Radial, right 06/14/24 15:48 ABG pH 7.48 (7.35-7.45) H 06/14/24 15:48 ABG pCO2 26.2 mmHg (35-45) L 06/14/24 15:48 ABG pO2 63.7 mmHg (80.0-100.0) L 06/14/24 15:48 ABG PO2/FiO2 Ratio 159 06/14/24 15:48 ABG HCO3 19.2 mmol/L (22-26) L 06/14/24 15:48 ABG Base Excess -2.7 mmol/L (-2.0-2.0) L 06/14/24 15:48 Terry Test Pos 06/14/24 15:48 Hematocrit 44.1 % (42-52) 06/14/24 15:48 Hgb O2 Saturation 92.3 % (95-100) L 06/14/24 15:48 Carboxyhemoglobin 1.2 %THgb (0.4-20.1) 06/14/24 15:48 Methemoglobin 0.3 % (0.4-1.5) L 06/14/24 15:48 Total Hemoglobin 14.4 g/dL (14-18) 06/14/24 15:48 O2 Delivery Device Nc 06/14/24 15:48 O2 Liters/Min 5.0 % 06/14/24 15:48 FiO2 40.0 % 06/14/24 15:48 [facility] ID glc 06/14/24 15:48 Sodium 142 mmol/L (136-145) 06/17/24 02:32 Potassium 3.9 mmol/L (3.5-5.1) 06/17/24 02:32 Chloride 110 mmol/L (98-107) H 06/17/24 02:32 Carbon Dioxide 21 mmol/L (22-29) L 06/17/24 02:32 Anion Gap 14.9 (5-19) 06/17/24 02:32 BUN 16 mg/dL (8-23) 06/17/24 02:32 Creatinine 0.9 mg/dL (0.7-1.2) 06/17/24 02:32 GFR Calculation Not Reportable 06/17/24 02:32 Glucose 127 mg/dL (65-115) H 06/17/24 02:32 POC Glucose 184 mg/dL (70-110) H 06/17/24 06:01 Calculated Osmolality 297 mOsm/kg (285-295) H 06/17/24 02:32 Lactic Acid 2.7 mmol/L (0.5-2.2) H 06/14/24 16:17 Lactic Acid (Sepsis) 5.7 mmol/L (0.5-2.2) H* 06/14/24 19:24 Calcium 8.1 mg/dL (8.5-10.5) L 06/17/24 02:32 Magnesium 1.9 mg/dL (1.7-2.3) 06/14/24 18:26 Total Bilirubin 0.8 mg/dL (0.15-1.2) 06/14/24 18:26 AST 47 U/L (0-40) H 06/14/24 18:26 ALT 41 U/L (0-41) 06/14/24 18:26 Alkaline Phosphatase 81 U/L (40-130) 06/14/24 18:26 NT-Pro-B Natriuret Pep 39159 pg/mL (0-450) H 06/15/24 05:55 Total Protein 6.7 g/dL (6.6-8.7) 06/14/24 18:26 Albumin 3.4 g/dL (3.5-5.2) L 06/14/24 18:26 Globulin 3.3 g/dL (1.3-4.6) 06/14/24 18:26 TSH 1.71 uIU/mL (0.27-4.20) 06/15/24 05:55 Influenza A (PCR) Negative (Negative) 06/14/24 16:06 Influenza Type B (PCR) Negative (Negative) 06/14/24 16:06 RSV (PCR) Negative (Negative) 06/14/24 16:06 SARS-CoV-2 (PCR) Negative (Negative) 06/14/24 16:06 Vitals Last Vital Signs Temp 97.3 F L 06/17/24 07:49 Pulse 103 H 06/17/24 08:22 Resp 18 06/17/24 08:22 BP 146/101 06/17/24 07:49 Pulse Ox 95 06/17/24 08:22 O2 Del Method Room Air 06/17/24 08:22 O2 Flow Rate 1 06/17/24 02:14 Discharge Plan Discharge Patient Disposition: Home Condition: Stable Prescriptions: New ipratropium-albuterol 0.5 mg-3 mg(2.5 mg base)/3 mL Solution For Nebulization 3 ml inhalation Q6H.RESP PRN (Reason: shortness of breath) 15 Days Qty: 150 0RF levofloxacin 750 mg tablet 750 mg PO DAILY 10 Days Qty: 10 0RF Continued aspirin [Nevaeh Low Dose Aspirin] 81 mg Tablet,Delayed Release (Dr/Ec) 81 mg PO DAILY atorvastatin 80 mg Tablet 80 mg PO QPM prednisone 20 mg Tablet 40 mg PO DAILY levothyroxine 25 mcg Tablet 25 mcg PO DAILY metoprolol tartrate 50 mg Tablet 50 mg PO BID Discontinued amoxicillin-pot clavulanate 875-125 mg Tablet 1 tab PO BID Discharge Orders: Discharge Order (Routine); Ordered 06/17/24 Ordered By: Cindy Mccauley Referrals: Saurabh Magaña DO [Primary Care Provider] - 06/23/24 11:10 am Julissa Moser FNP [Nurse Practitioner] - 06/30/24 2:30 pm Discharge Diet: Cardiac Discharge Activity: As per PT/OT instructions Patient Instructions: Opioid Safety Discharge Attestations Time Spent in Discharge Care*: less than 30 min Quality Metrics Clinical Quality Measures [ No reported AMI, CVA or VTE this stay] Coding Level of Care Code Acute Code for Chg Fwd Diagnoses Pneumonia J18.9 Hypokalemia E87.6 Atrial fibrillation with rapid ventricular response I48.91 Cerebrovascular accident I63.9 Hypothyroidism E03.9 Time Spent (min) 15
--- NOTE | 2024-06-17 10:09 | PC.SOCIAL ---
IMM Update Updated pt on IMM. No questions voiced. Provided pt a copy. Initialed, dated, & timed a copy & placed in chart.
[2024-06-17 11:26] LABS: Glucose Point of Care 166 mg/dL (70-110)
--- NOTE | 2024-06-17 13:48 | PC.NURSE ---
Patient discharged to home with home health. Patient taken by Jono yi. Spoke with Gonzalo Hidalgo (son) and provided instructions regarding follow up needs and medication changes. Son verbalized complete understanding. Written RX and copy of discharge sent with patient. Patient denies needs or pain. No distress observed.
== END 2024-06-17 13:51 | disposition home health service (06) | DRG 193 ==
LOC: ER 17:09 → CSU 17:38
PROVIDERS: Family Medicine; Admitting Provider Internal Medicine; Emergency Provider Emergency Medicine; PCP Electrodiagnostic Medicine; Visit Provider Internal Medicine
DX: J18.9 Pneumonia, unspecified organism (principal); J96.01 Acute respiratory failure with hypoxia; I69.951 Hemiplegia and hemiparesis following unspecified cerebrovascular disease affecting right dominant side; I50.32 Chronic diastolic (congestive) heart failure; E87.6 Hypokalemia; I48.91 Unspecified atrial fibrillation; E03.9 Hypothyroidism, unspecified; I95.9 Hypotension, unspecified; Z79.82 Long term (current) use of aspirin
CPT/HCPCS: 36415; 36416; 36600; 71045; 80048; 80053; 82805; 82962; 83605; 83735; 83880; 84443; 85025; 87040; 87637; 93005; 94640; 96365; 96372; 96375; 97162; 97530; 99285; J0456; J0696; J1650; J2060; J2543; J2919; J3490; J7030; J7050; J9999

== ENCOUNTER 2024-06-25 11:39 | Inpatient (IN) | payer MEDICARE, MEDICAID, SELFPAY ==
[2024-06-25] VITALS (7 sets, daily range): BP systolic 128–151; BP diastolic 81–105; PULSE 57–113; RESP 14–30; TEMP 36.4–36.7; O2SAT 98–100; BMI 25.0
--- NOTE | 2024-06-25 11:41 | CTR_ITS ---
PROCEDURE INFORMATION: Exam: CT Head Without Contrast Exam date and time: 06/25/2024 12:17 PM Age: 89 years old Clinical indication: Altered mental status/memory loss; Additional info: AMS TECHNIQUE: Imaging protocol: Computed tomography of the head without contrast. Radiation optimization: All CT scans at this facility use at least one of these dose optimization techniques: automated exposure control; mA and/or kV adjustment per patient size (includes targeted exams where dose is matched to clinical indication); or iterative reconstruction. COMPARISON: MR head wo con* [id number] 05/19/2024 7:07 AM RADIATION DOSE METRICS: Total DLP (mGy-cm): 940.38 FINDINGS: Brain: No midline shift or acute intracranial finding. Periventricular hypodensities are nonspecific and likely representing severe small vessel ischemic changes. Cortical atrophy is present. Chronic left frontal lobe infarct. Cerebral ventricles: No ventriculomegaly. Paranasal sinuses: Mucosal thickening in the right maxillary sinus and bilateral sphenoidal sinuses. Mastoid air cells: Visualized mastoid air cells are well aerated. Bones: Unremarkable. No acute fracture. Soft tissues: Unremarkable. CT/CT head wo con* [id number] IMPRESSION: 1. No acute intracranial finding 2. Sinus disease as described. 3. Likely severe small-vessel ischemic changes. 4. Cortical atrophy is present. 5. Additional findings as described.
--- NOTE | 2024-06-25 11:41 | XRR_ITS ---
PROCEDURE INFORMATION: Exam: XR Chest Exam date and time: 06/25/2024 12:08 PM Age: 89 years old Clinical indication: Cough TECHNIQUE: Imaging protocol: Radiologic exam of the chest. Views: 1 view. COMPARISON: CR XR chest 1V portable [id number] 06/16/2024 6:58 AM FINDINGS: Lungs: Pulmonary vessels are within normal limits. Right basilar calcified granuloma. Left lung is clear. Pleural spaces: No pneumothorax. Heart/Mediastinum: Cardiomegaly is seen. Calcified mediastinal and bilateral hilar granulomas. Bones/joints: Unremarkable. XR/XR chest 1V portable [id number] IMPRESSION: 1. No acute pulmonary finding 2. Cardiomegaly.
--- NOTE | 2024-06-25 11:42 | ECG_ITS ---
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 Measurements Intervals [place] Rate: 117 P: 0 AL: 0 QRS: 30 QRSD: 106 T: 225 QT: 327 QTc: 458 Interpretive Statements ATRIAL FIBRILLATION WITH RAPID VENTRICULAR RESPONSE Compared to ECG 06/14/2024 17:05:15 Ventricular premature complex(es) no longer present Aberrant conduction of supraventricular beat(s) no longer present Electronically Signed On 06-27-2024 09:19:28 CDT by Nate Mancera M.D. [email or web address]
--- NOTE | 2024-06-25 11:58 | W.ED.AMS ---
HPI - Altered Mental Status General: Chief Complaint: Altered Mental Status Stated Complaint: ams; cough Time Seen by Provider: 06/25/24 11:41 Source: EMS Mode of arrival: EMS Limitations: altered mental status History of Present Illness: 89-year-old male with history of stroke in the past had a recent admission here for pneumonia 2 weeks ago per EMS family states that he has been altered since last night he is only responding in yes no is not able answer other questions not able to tell me his name. He is also had increased cough no known fevers Related Data Home Medications ?Medication ?Instructions ?Recorded ?Confirmed aspirin 81 mg tablet,delayed 81 mg PO DAILY 05/19/24 06/25/24 release (Nevaeh Low Dose Aspirin) atorvastatin 80 mg tablet 80 mg PO QPM 06/14/24 06/25/24 levothyroxine 25 mcg tablet 25 mcg PO DAILY 06/14/24 06/25/24 metoprolol tartrate 50 mg tablet 50 mg PO BID 06/14/24 06/25/24 Previous Rx's ?Medication ?Instructions ?Recorded ipratropium 0.5 mg-albuterol 3 mg 3 ml inhalation Q6H.RESP PRN 06/17/24 (2.5 mg base)/3 mL nebulization shortness of breath 15 days #150 mL soln Allergies Allergy/AdvReac Type Severity Reaction Status Date / Time No Known Drug Allergies Allergy Unknown Verified 06/14/24 15:29 Review of Systems General: Reports: ROS unobtainable due to mental status PFS ED PFSH: Medical History Hypothyroidism Atrial fibrillation with rapid ventricular response Cerebrovascular accident Hypertension Surgical History No pertinent past surgical history Physical Exam Const: COMMON NORMALS: negative for patient oriented x3 EXAM LIMITATIONS: altered mental status HENMT: COMMON NORMALS: normocephalic and atraumatic HEAD & SCALP: normocephalic and atraumatic Eye: COMMON NORMALS: conjunctivae normal CONJUNCTIVA: Yes conjunctivae normal Neck/C-Spine: COMMON NORMALS: full ROM and supple Chest: COMMONS NORMALS: normal inspection of the chest and normal palpation of entire chest wall Resp: COMMON NORMALS: normal respiratory effort, No retractions, No use of accessory muscles and clear to auscultation bilaterally AUSCULTATION: clear to auscultation bilaterally Cardio: COMMON NORMALS: regular rate, regular rhythm and No murmurs present (Cardio) RATE: regular rate RHYTHM: regular rhythm GI: COMMON NORMALS: Normal to inspection, nondistended, normoactive bowel sounds present, Soft to palpation, non-tender and no masses PALPATION: Yes Soft to palpation Extremity: COMMON NORMALS: normal to inspection and full ROM Neuro: COMMON NORMALS: negative for patient oriented x3 Psych: COMMON NORMALS: negative for mental status grossly normal Skin: COMMON NORMALS: no rashes or lesions noted and no wounds GENERAL SKIN EXAM: no rashes or lesions noted Course Vital Signs: Vital signs: Vital Signs Temperature 97.7 F 06/25/24 11:39 Pulse Rate 113 H 06/25/24 13:50 Respiratory Rate 14 06/25/24 12:07 Blood Pressure 133/103 06/25/24 13:50 Pulse Oximetry 100 06/25/24 13:50 Oxygen Delivery Me thod Room Air 06/25/24 12:07 MDM - Altered Mental Status Medical Decision Making Patient presents here from home with increased weakness along with altered mental status he is altered at baseline spoke to family states that he recently got out of half-way and they are not able to take care of him I spoke to hospitalist will admit for half-way placement Medical Records I reviewed the patient's medical records. Lab Data I reviewed the patient's lab results. 06/25/24 11:53 06/25/24 11:53 Radiology Impressions Chest X-Ray 06/25/24 11:41 IMPRESSION: 1. No acute pulmonary finding 2. Cardiomegaly. Head CT 06/25/24 11:41 IMPRESSION: 1. No acute intracranial finding 2. Sinus disease as described. 3. Likely severe small-vessel ischemic changes. 4. Cortical atrophy is present. 5. Additional findings as described. Laboratory Results WBC 11.08 10^3/uL (3.29-11.43) 06/25/24 11:53 RBC 5.27 10^6/uL (3.85-5.65) 06/25/24 11:53 Hgb 15.20 g/dL (11.27-16.99) 06/25/24 11:53 Hct 47.8 % (37-53) 06/25/24 11:53 MCV 90.7 fl (82-101) 06/25/24 11:53 MCH 28.8 pg (27-33) 06/25/24 11:53 MCHC 31.8 g/dL (30-55) 06/25/24 11:53 RDW 16.2 % (12.1-15.1) H 06/25/24 11:53 Plt Count 180 10^3/cmm (157-399) 06/25/24 11:53 MPV 10.5 fL (7.4-10.4) H 06/25/24 11:53 Neut % (Auto) 84.5 % 06/25/24 11:53 Lymph % (Auto) 10.2 % 06/25/24 11:53 [place] % (Auto) 4.2 % 06/25/24 11:53 Eos % (Auto) 0.0 % 06/25/24 11:53 Baso % (Auto) 0.2 % 06/25/24 11:53 Neut # (Auto) 9.36 10^3/uL (1.8-7.7) H 06/25/24 11:53 Lymph # (Auto) 1.1 10^3/uL (0.8-4.8) 06/25/24 11:53 [place] # (Auto) 0.5 10^3/uL (0.2-0.9) 06/25/24 11:53 Eos # (Auto) 0.0 10^3/uL (0.0-0.8) 06/25/24 11:53 Baso # (Auto) 0.0 10^3/uL (0.0-0.1) 06/25/24 11:53 Nucleated RBC % (auto) 0 % 06/25/24 11:53 Nucleated RBCs # 0.0 /100WBC 06/25/24 11:53 PT 15.70 SECONDS (12.1-14.9) H 06/25/24 11:53 INR 1.17 (0.8-1.2) 06/25/24 11:53 Sodium 141 mmol/L (136-145) 06/25/24 11:53 Potassium 4.7 mmol/L (3.5-5.1) 06/25/24 11:53 Chloride 104 mmol/L (98-107) 06/25/24 11:53 Carbon Dioxide 21 mmol/L (22-29) L 06/25/24 11:53 Anion Gap 20.7 (5-19) H 06/25/24 11:53 BUN 33 mg/dL (8-23) H 06/25/24 11:53 Creatinine 1.3 mg/dL (0.7-1.2) H 06/25/24 11:53 GFR Calculation Not Reportable 06/25/24 11:53 Glucose 154 mg/dL (65-115) H 06/25/24 11:53 Calculated Osmolality 302 mOsm/kg (285-295) H 06/25/24 11:53 Calcium 9.5 mg/dL (8.5-10.5) 06/25/24 11:53 Total Bilirubin 1.1 mg/dL (0.15-1.2) 06/25/24 11:53 AST 59 U/L (0-40) H 06/25/24 11:53 ALT 99 U/L (0-41) H 06/25/24 11:53 Alkaline Phosphatase 102 U/L (40-130) 06/25/24 11:53 NT-Pro-B Natriuret Pep 17493 pg/mL (0-450) H 06/25/24 11:53 Total Protein 7.6 g/dL (6.6-8.7) 06/25/24 11:53 Albumin 3.8 g/dL (3.5-5.2) 06/25/24 11:53 Globulin 3.8 g/dL (1.3-4.6) 06/25/24 11:53 TSH 3.97 uIU/mL (0.27-4.20) 06/25/24 11:53 Urine Color Dark yellow (Yellow) A 06/25/24 12:05 Urine Appearance Slightly cloudy (CLEAR) 06/25/24 12:05 Urine pH 5 (5-7) 06/25/24 12:05 Ur Specific [place] 1.027 (1.005-1.030) 06/25/24 12:05 Urine Protein 2+ (Negative) H 06/25/24 12:05 Urine Glucose (UA) Norm (Normal) 06/25/24 12:05 Urine Ketones Negative (Negative) 06/25/24 12:05 Urine Blood 1+ (Negative) H 06/25/24 12:05 Urine Nitrate Negative (Negative) 06/25/24 12:05 Urine Bilirubin Neg (Negative) 06/25/24 12:05 Urine Urobilinogen 1.0 mg/dL (Negative) 06/25/24 12:05 Ur Leukocyte Esterase Negative (Negative) 06/25/24 12:05 Urine RBC 0-4 /hpf (0-2) H 06/25/24 12:05 Urine WBC 0-4 /hpf (0-5) H 06/25/24 12:05 Ur Squamous Epith Cells None /hpf (0-5) 06/25/24 12:05 Calcium Oxalate Crystal 5-10 /hpf H 06/25/24 12:05 Amorphous Sediment Not Reportable 06/25/24 12:05 Urine Bacteria 1+ /hpf (NONE) H 06/25/24 12:05 Hyaline Casts 15-25 /lpf H 06/25/24 12:05 Urine Mucus 1+ /hpf 06/25/24 12:05 All radiology interpretation(s) finalized by discharge EKG Data EKG 1: I personally reviewed and interpreted this EKG as follows: EKG interpretation date: 06/25/24 EKG interpretation time: 11:56 Interpretation: afib with rvr hr [address] elevation qrs 106 qtc 397 Discharge Plan Discharge Patient Disposition: Admitted As Inpatient Clinical Impression: Altered mental status, Generalized weakness Condition: Stable Coding Level of Care Code ED Name Plate Stamping Machine Operator for Balaji De La Cruz
[2024-06-25 12:00] LABS: Basophils % 0.2 %; Hematocrit 47.8 % (37-53); Lymphocytes # 1.1 10^3/uL (0.8-4.8); Lymphocytes % 10.2 %; Mean Corpuscular HGB Conc 31.8 g/dL (30-55); Mean Corpuscular Hemoglobin 28.8 pg (27-33); Mean Corpuscular Volume 90.7 fl (82-101); Mean Platelet Volume 10.5 fL (7.4-10.4); Monocytes # 0.5 10^3/uL (0.2-0.9); Monocytes % 4.2 %; Neutrophils # 9.36 10^3/uL (1.8-7.7); Neutrophils % 84.5 %; Nucleated Red Blood Cells % 0 %; Platelet Count 180 10^3/cmm (157-399); Red Blood Count 5.27 10^6/uL (3.85-5.65); Red Cell Distribution Width 16.2 % (12.1-15.1); White Blood Count 11.08 10^3/uL (3.29-11.43)
[2024-06-25 12:13] LABS: INR 1.17 (0.8-1.2)
[2024-06-25 12:21] LABS: Add Urine Microscopic? YES; Bilirubin Urine Neg (Negative); Blood Urine 1+ (Negative); Glucose Urine UA Norm (Normal); Ketones Urine Negative (Negative); Leukocyte Esterase Urine Negative (Negative); Nitrate Urine Negative (Negative); Protein Urine 2+ (Negative); Specific Gravity, Urine 1.027 (1.005-1.030); Urine Appearance Slightly Cloudy (CLEAR); Urine Color Dark Yellow (Yellow); pH Urine 5 (5-7)
[2024-06-25 12:29] LABS: Alanine Aminotransferase 99 U/L (0-41); Albumin Level 3.8 g/dL (3.5-5.2); Alkaline Phosphatase 102 U/L (40-130); Anion Gap 20.7 (5-19); Aspartate Amino Transferase 59 U/L (0-40); Blood Urea Nitrogen 33 mg/dL (8-23); Calcium 9.5 mg/dL (8.5-10.5); Carbon Dioxide 21 mmol/L (22-29); Chloride 104 mmol/L (98-107); Creatinine Clr Calc Pharmacy 37.4272; Globulin 3.8 g/dL (1.3-4.6); Glucose 154 mg/dL (65-115); Osmolality Calculated 302 mOsm/kg (285-295); Potassium 4.7 mmol/L (3.5-5.1); Sodium 141 mmol/L (136-145); Total Bilirubin 1.1 mg/dL (0.15-1.2); Total Protein 7.6 g/dL (6.6-8.7)
[2024-06-25 12:32] LABS: UA Manual Slide Review YES; UA Slide Review UA Slide Review Perf
[2024-06-25 12:33] LABS: Add Urine Culture? No; Bacteria Urine 1+ /hpf; Hyaline Casts Urine 15-25 /lpf; Mucus Urine 1+ /hpf; RBC Urine 0-4 /hpf (0-2); WBC Urine 0-4 /hpf (0-5)
[2024-06-25 12:49] LABS: NT Pro B Type Natriuretic Pept 31899 pg/mL (0-450)
[2024-06-25 12:55] LABS: Thyroid Stimulating Hormone 3.97 uIU/mL (0.27-4.20)
[2024-06-25] MEDS: FUROsemide 10 mg/mL SDV 10mL 60 MG IVP (13:01)
[2024-06-25] MEDS: aspirin 81 mg Chew Tablet 324 MG PO (14:29)
[2024-06-25] MEDS: dilTIAZem 5 mg/mL SDV 5 mL 10 MG IVP (14:39)
--- NOTE | 2024-06-25 14:56 | PC.NURSE ---
Dr. Shannon found a tibial posterior pulse bilaterally.
--- NOTE | 2024-06-25 15:09 | P.HP_ITS ---
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 Currently was hospitalized for respiratory failure secondary to pneumonia, with CHF. Currently patient is alert to person, not to place, to time, he can follow some commands, frequently stutters his words, but easily becomes confused, does report cough, shortness of breath, no family members at bedside for history taking, denies any chest pain, tells me that he lives at his son's house, does not know the address, Review of Systems 2 Const: Reports: fatigue and malaise; Denies: fever(s) or chills Card: Denies: chest pain Resp: Reports: dyspnea GI: Denies: abdominal pain Medications/Allergies Home Medications ?Medication ?Instructions ?Recorded ?Confirmed ?Last Taken ?Type aspirin 81 mg tablet,delayed 81 mg PO DAILY 05/19/24 0 06/25/24 06/14/24 History release (Nevaeh Low Dose Aspirin) atorvastatin 80 mg tablet 80 mg PO QPM 06/14/2406/24/24 History levothyroxine 25 mcg tablet 25 mcg PO DAILY 06/14/24 0 06/25/24 06/25/24 History metoprolol tartrate 50 mg tablet 50 mg PO BID 06/14/24 06/25/24 06/25/24 History ipratropium 0.5 mg-albuterol 3 mg 3 ml inhalation Q6H. RESP PRN 06/17/24 06/25/24 Unknown Rx (2.5 mg base)/3 mL nebulization shortness of breath 15 days #150 mL soln Allergies Allergy/AdvReac Type Severity Reaction Status Date / Time No Known Drug Allergies Allergy Unknown Verified 06/14/24 15:29 PFSH Acute 2 PFSH: Medical History Hypothyroidism Atrial fibrillation with rapid ventricular response Cerebrovascular accident Hypertension Surgical History No pertinent past surgical history Vitals/I&O/Wt Last Vital Signs Temp 97.7 F 06/25/24 11:39 Pulse 87 06/25/24 14:58 Resp 14 06/25/24 14:58 BP 145/96 06/25/24 14:58 Pulse Ox 100 06/25/24 14:58 O2 Del Method Room Air 06/25/24 12:07 Weight last 48 hrs Weight 72.575 kg Physical Exam 2 Const: COMMON NORMALS: no acute distress EXAM LIMITATIONS: altered mental status ORIENTATION/CONSCIOUSNESS: Yes awake, Yes oriented to person and Yes confused; not oriented to place and not oriented to time Eye: COMMON NORMALS: Equal, round and reactive pupils present and EOMs intact bilaterally Neck/C-Spine: COMMON NORMALS: full ROM and no lymphadenopathy Chest: COMMONS NORMALS: normal inspection of the chest Resp: COMMON NORMALS: normal respiratory effort, No retractions and No use of accessory muscles AUSCULTATION: crackles and wheezes Cardio: COMMON NORMALS: no JVD, regular rate, regular rhythm, S1 normal heart sound present and S2 normal heart sound present RATE: tachycardic RHYTHM: abnormal rhythm irregularly irregular HEART SOUNDS: S1 normal heart sound present and S2 normal heart sound present GI: COMMON NORMALS: Normal to inspection, nondistended, normoactive bowel sounds present, Soft to palpation and non-tender : COMMON NORMALS: Yes no CVA tenderness Extremity: COMMON NORMALS: no calf tenderness and no pedal edema OTHER: Difficult to follow neurologic testing, due to global encephalopathy, does not move right arm, decreased movement right leg, history of CVA, does have swelling right upper extremity, good radial pulse, no significant pitting edema lower extremity Skin: NARRATIVE SKIN EXAM: Multiple superficial abrasions bilateral extremity Urinary Catheter Management: Alejandre: Cath Placed During This Visit: yes Urinary Catheter Date of Insertion: 06/25/24 Urinary Catheter Time of Insertion: 12:08 Data 06/25/24 11:53 06/25/24 11:53 A&P Assessment and plan (1) Acute encephalopathy: (2) Hypertension: (3) CHF (congestive heart failure): (4) Aspiration pneumonia: Plan Acute encephalopathy, metabolic -Head CT within normal limits - With underlying history of CVA, 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 - Neurochecks - NIH stroke scale - Aspiration precautions Concerns for aspiration pneumonia - Crackles and wheezing in all lung gu, right lower lobe pneumonia during last hospitalization - Aspiration precautions - Continue Rocephin - Dysphagia diet, moderately thickened Concerns for CHF, systolic - Elevated BNP - Has received 60 of IV push Lasix emergency room - Monitor urine output, monitor creatinine Insert EKGs, start troponins, telemetry monitoring Concern for UTI, IV fluids Full code Lovenox for DVT prophylaxis PDMP PDMP Reviewed: Not Reviewed Attestations 2 Medical Necessity Statement*: Patient requires hospitalization inpatient, greater than 2 minutes for acute encephalopathy, aspiration pneumonia, CHF, UTI Diagnoses Acute encephalopathy G93.40 Hypertension I10 CHF (congestive heart failure) I50.9 Aspiration pneumonia J69.0
--- NOTE | 2024-06-25 15:47 | ECG_ITS ---
[facility] [place] [place] [facility] Date: 2024-06[facility]25 Pat Name: Luis Morales Department: Room: Gender: Male Section Leader: : 1935 Requested By: Danilo Moore Order Number: [id number] Miguel Moreno MD: Nate Mancera M.D. Measurements Intervals [place] Rate: 112 P: 0 [place]: 0 QRS: 44 QRSD: 104 T: 206 QT: 329 QTc: 449 Interpretive Statements ATRIAL FIBRILLATION WITH RAPID VENTRICULAR RESPONSE ST DEVIATION AND MODERATE T-WAVE ABNORMALITY, CONSIDER ANTERIOR ISCHEMIA [-0.1+ mV T-WAVE IN V3/V4] Compared to ECG 06/25/2024 11:56:58 T-wave abnormality now present Possible ischemia now present Myocardial infarct finding no longer present Electronically Signed On 06-27-2024 09:18:10 CDT by Nate Mancera M.D. [email or web address]
[2024-06-25 16:36] LABS: C Reactive Protein 15.2 mg/L (0.0-4.9); Lactic Sepsis W/Reflex 2.3 mmol/L (0.5-2.2)
[2024-06-25 16:37] LABS: Troponin(5th) Baseline 84 ng/L (0-15)
[2024-06-25 16:43] LABS: Procalcitonin 0.14 ng/mL (0-0.5)
[2024-06-25 17:07] LABS: Thyroid Stimulating Hormone 3.93 uIU/mL (0.27-4.20)
--- NOTE | 2024-06-25 17:08 | ECG_ITS ---
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 Measurements Intervals [place] Rate: 127 P: 0 [place]: 0 QRS: 36 QRSD: 110 T: 248 QT: 317 QTc: 462 Interpretive Statements ATRIAL FIBRILLATION WITH RAPID VENTRICULAR RESPONSE MODERATE T-WAVE ABNORMALITY, CONSIDER ANTEROLATERAL ISCHEMIA [-0.1+ mV T-WAVE IN V3-V6] Compared to ECG 06/25/2024 15:47:10 No significant changes Electronically Signed On 06-27-2024 10:23:22 CDT by Nate Mancera M.D. [id number]
[2024-06-25] MEDS: atorvastatin 40 mg Tablet 80 MG PO (17:10)
[2024-06-25] MEDS: enoxaparin 40 mg/0.4 mL Syringe SUBCUT (17:11)
[2024-06-25] MEDS: metoprolol tartrate 50 mg Tablet PO (17:11)
[2024-06-25] MEDS: pantoprazole 40 mg SDV IVP (17:15)
[2024-06-25] MEDS: cefTRIAXone 1,000 mg SDV 1000 MG IVP (17:15)
[2024-06-25 17:56] LABS: Reflex Lactate Order REFLEX LACTIC ORDERD
[2024-06-25 18:46] LABS: Troponin 5 2HR 88.67 ng/L (0-15); Troponin 5 2HR Delta 4.67 ABS# (0-10)
[2024-06-25 18:48] LABS: Lactic Acid level (Lactate) 3.5 mmol/L (0.5-2.2)
[2024-06-25 20:48] LABS: Glucose Point of Care 160 mg/dL (70-110)
--- NOTE | 2024-06-25 21:41 | ECG_ITS ---
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 Measurements Intervals [place] Rate: 98 P: 0 [place]: 0 QRS: 3 QRSD: 110 T: 185 QT: 392 QTc: 502 Interpretive Statements ATRIAL FIBRILLATION POSSIBLE INFERIOR MYOCARDIAL INFARCTION , PROBABLY OLD [30 ms Q WAVE IN II/aVF] MODERATE T-WAVE ABNORMALITY, CONSIDER LATERAL ISCHEMIA [-0.1+ mV T-WAVE IN I/aVL/V5/V6] Compared to ECG 06/25/2024 17:40:39 Myocardial infarct finding now present T-wave abnormality still present Possible ischemia still present Electronically Signed On 06-27-2024 10:23:08 CDT by Nate Mancera M.D. [id number] [id number]
[2024-06-25 22:08] LABS: Troponin 5 6HR 79.67 ng/L (0-15); Troponin 5 6HR Delta -4.33 ng/L (0-12)
[2024-06-26] VITALS (7 sets, daily range): BP systolic 113–156; BP diastolic 68–84; PULSE 79–94; RESP 14–22; TEMP 36.4–36.6; O2SAT 92–98
[2024-06-26 02:59] LABS: Basophils % 0.1 %; Eosinophils % 0.3 %; Hematocrit 38.2 % (37-53); Lymphocytes # 1.3 10^3/uL (0.8-4.8); Lymphocytes % 12.3 %; Mean Corpuscular HGB Conc 32.5 g/dL (30-55); Mean Corpuscular Hemoglobin 28.8 pg (27-33); Mean Corpuscular Volume 88.8 fl (82-101); Mean Platelet Volume 10.4 fL (7.4-10.4); Monocytes # 0.5 10^3/uL (0.2-0.9); Monocytes % 4.9 %; Neutrophils # 8.36 10^3/uL (1.8-7.7); Neutrophils % 81.9 %; Nucleated Red Blood Cells % 0 %; Platelet Count 135 10^3/cmm (157-399); Red Cell Distribution Width 15.8 % (12.1-15.1); White Blood Count 10.21 10^3/uL (3.29-11.43)
[2024-06-26 03:20] LABS: Alanine Aminotransferase 61 U/L (0-41); Albumin Level 2.8 g/dL (3.5-5.2); Alkaline Phosphatase 84 U/L (40-130); Anion Gap 13.6 (5-19); Aspartate Amino Transferase 39 U/L (0-40); Blood Urea Nitrogen 31 mg/dL (8-23); Calcium 8.4 mg/dL (8.5-10.5); Carbon Dioxide 25 mmol/L (22-29); Chloride 106 mmol/L (98-107); Creatinine Clr Calc Pharmacy 40.5462; Globulin 2.9 g/dL (1.3-4.6); Glucose 108 mg/dL (65-115); Magnesium 1.9 mg/dL (1.7-2.3); Osmolality Calculated 299 mOsm/kg (285-295); Phosphorus 2.8 mg/dL (2.5-4.5); Potassium 3.6 mmol/L (3.5-5.1); Sodium 141 mmol/L (136-145); Total Bilirubin 0.8 mg/dL (0.15-1.2); Total Protein 5.7 g/dL (6.6-8.7)
[2024-06-26] MEDS: metoprolol tartrate 50 mg Tablet PO ×2 (10:32→17:30)
[2024-06-26] MEDS: aspirin 81 mg EC Tablet PO (10:32)
[2024-06-26] MEDS: FUROsemide 10 mg/mL SDV 4mL 40 MG IVP ×2 (10:32→20:30)
[2024-06-26] MEDS: levothyroxine 25 mcg Tablet PO (10:32)
--- NOTE | 2024-06-26 13:37 | P.PN_ITS ---
Subjective 2 Subjective: Patient was seen this morning, he is alert to person, to place, not to time, he has no complaints this morning, reports his shortness of breath is improving, denies any abdominal pain, no nausea, no vomiting, no flank pain, patient does follow commands at times, however is easily confused, does not move his address, remembers his birthday, did but does not know the date, does not know who the president is, Vitals/I&O/Wt Last Vital Signs Temp 97.6 F 06/26/24 11:16 Pulse 85 06/26/24 11:16 Resp 17 06/26/24 11:16 BP 124/83 06/26/24 11:16 Pulse Ox 92 06/26/24 11:16 O2 Del Method Room Air 06/26/24 11:16 06/25/24 06/26/24 06/26/24 22:59 06:59 14:59 Intake Total 960 / 960 Output Total 2500 / 2500 1600 / 4100 650 / 650 Balance -1540 / -1540 -1600 / -3140 -650 / -650 Weight last 48 hrs Weight 52.163 kg Weight 72.575 kg Weight 72.575 kg Physical Exam 2 Const: COMMON NORMALS: no acute distress ORIENTATION/CONSCIOUSNESS: Yes awake, Yes oriented to person and Yes oriented to place; not oriented to time Resp: COMMON NORMALS: normal respiratory effort, No retractions and No use of accessory muscles AUSCULTATION: crackles and wheezes Cardio: COMMON NORMALS: regular rate, regular rhythm, S1 normal heart sound present and S2 normal heart sound present RATE: regular rate RHYTHM: r egular rhythm HEART SOUNDS: S1 normal heart sound present and S2 normal heart sound present GI: COMMON NORMALS: Normal to inspection, nondistended, normoactive bowel sounds present and non-tender Extremity: COMMON NORMALS: no pedal edema Neuro: SENSORIUM/ORIENTATION: Yes oriented to person, Yes oriented to place and No oriented to time Urinary Catheter Management: Alejandre: Cath Placed During This Visit: yes Reason for Continuing Indwelling Catheter: Accurate Measurement of Urinary Output in Critically Ill Patients Urinary Catheter Date of Insertion: 06/25/24 Urinary Catheter Time of Insertion: 12:08 Data 06/26/24 02:49 06/26/24 02:49 Micro: Microbiology 06/25/24 18:11 Blood Culture - Preliminary Blood SPECIMEN COLLECTED 06/25/24 11:53 Blood Culture - Preliminary Blood SPECIMEN COLLECTED A&P Assessment and plan (1) Acute encephalopathy: (2) Hypertension: (3) CHF (congestive heart failure): (4) Aspiration pneumonia: Plan Acute encephalopathy, metabolic -Head CT within normal limits - With underlying history of CVA, 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 Continue Rocephin - Neurochecks - NIH stroke scale - Aspiration precautions Concerns for aspiration pneumonia - Crackles and wheezing in all lung gu, right lower lobe pneumonia during last hospitalization - Aspiration precautions, keep n.p.o. - Continue Rocephin - Speech therapy eval, modified barium swallow tomorrow Concerns for CHF, systolic cardiac echo Severe diffuse hypokinesia of the left ventricule with an ejection fraction of around 25%. Normal LV size. Right ventricle appears to be normal size with mildly diminished ejection fraction. Mildly increased right atrial size. Severely dilated left atrium with volume index as systolic volume index of 68.4 mL/m squared. Thickened mitral valve. Moderate mitral valve regurgitatio. Thickened aortic valve. Mild to moderate aortic valve regurgitation. [id number] tricuspid valve regurgitation. Moderate pulmonary hypertension with an estimated pulmonary artery peak systolic pressure 54 mmHg. Mild pulmonary valve regurgitation. Saline contrast injection revealed no evidence of the right left shunt There is no pericardial effusion. No similar previous studies are available for comparison - Elevated BNP - Has received 60 of IV push Lasix emergency room, urine output 4750 -Lasix 40 IV twice daily - Monitor urine output, monitor creatinine History of atrial fibrillation, continue metoprolol NSTEMI -No chest pain complaints -Serial EKGs, serial troponins, telemetry monitoring - EKGs, start troponins, telemetry monitoring Elevated lactic acid, multifactorial, from UTI, aspiration pneumonia Concern for UTI, IV fluids Full code Lovenox for DVT prophylaxis PDMP PDMP Reviewed: Not Reviewed Attestations 2 Medical Necessity Statement*: Patient requires hospitalization for acute encephalopathy, aspiration, CHF, UTI, NSTEMI Diagnoses Acute encephalopathy G93.40 Hypertension I10 CHF (congestive heart failure) I50.9 Aspiration pneumonia J69.0
[2024-06-26] MEDS: pantoprazole 40 mg SDV IVP (17:30)
[2024-06-26] MEDS: cefTRIAXone 1,000 mg SDV 1000 MG IVP (17:30)
[2024-06-26] MEDS: enoxaparin 40 mg/0.4 mL Syringe SUBCUT (17:30)
[2024-06-26] MEDS: atorvastatin 40 mg Tablet 80 MG PO (17:30)
[2024-06-27] VITALS: BP 136/64; PULSE 64; RESP 19; TEMP 36.4; O2SAT 92
[2024-06-27 00:44] LABS: Blood Urea Nitrogen 26 mg/dL (8-23); Calcium 8.7 mg/dL (8.5-10.5); Carbon Dioxide 30 mmol/L (22-29); Chloride 100 mmol/L (98-107); Creatinine Clr Calc Pharmacy 33.5898; Glucose 95 mg/dL (65-115); Magnesium 1.8 mg/dL (1.7-2.3); Osmolality Calculated 301 mOsm/kg (285-295); Sodium 143 mmol/L (136-145)
[2024-06-27] MEDS: magnesium sulfate premix 1 GM/100 ML PIGGYBACK IV (01:25)
[2024-06-27] MEDS: potassium chloride premix 100 ML 25 MEQ IV ×2 (02:00→05:49)
[2024-06-27 04:00] VITALS: BP 134/81; PULSE 87; RESP 20; TEMP 36.4; O2SAT 93
[2024-06-27 04:22] LABS: Basophils % 0.3 %; Eosinophils % 0.3 %; Hematocrit 47.5 % (37-53); Lymphocytes # 1.5 10^3/uL (0.8-4.8); Lymphocytes % 14.1 %; Mean Corpuscular HGB Conc 31.6 g/dL (30-55); Mean Corpuscular Hemoglobin 29.1 pg (27-33); Mean Corpuscular Volume 92.1 fl (82-101); Mean Platelet Volume 11.1 fL (7.4-10.4); Monocytes # 0.6 10^3/uL (0.2-0.9); Neutrophils # 8.09 10^3/uL (1.8-7.7); Neutrophils % 78.8 %; Nucleated Red Blood Cells % 0 %; Platelet Count 132 10^3/cmm (157-399); Red Blood Count 5.16 10^6/uL (3.85-5.65); Red Cell Distribution Width 16.1 % (12.1-15.1); White Blood Count 10.27 10^3/uL (3.29-11.43)
[2024-06-27 04:37] LABS: Alanine Aminotransferase 64 U/L (0-41); Albumin Level 3.2 g/dL (3.5-5.2); Alkaline Phosphatase 82 U/L (40-130); Anion Gap 20.1 (5-19); Aspartate Amino Transferase 41 U/L (0-40); Blood Urea Nitrogen 26 mg/dL (8-23); Calcium 8.9 mg/dL (8.5-10.5); Carbon Dioxide 27 mmol/L (22-29); Chloride 99 mmol/L (98-107); Creatinine Clr Calc Pharmacy 33.0347; Globulin 3.3 g/dL (1.3-4.6); Glucose 98 mg/dL (65-115); Magnesium 2.2 mg/dL (1.7-2.3); Osmolality Calculated 301 mOsm/kg (285-295); Potassium 3.1 mmol/L (3.5-5.1); Sodium 143 mmol/L (136-145); Total Bilirubin 1.1 mg/dL (0.15-1.2); Total Protein 6.5 g/dL (6.6-8.7)
[2024-06-27 06:21] LABS: NT Pro B Type Natriuretic Pept 30735 pg/mL (0-450)
[2024-06-27 08:00] VITALS: BP 124/83; PULSE 81; RESP 17; TEMP 36.4; O2SAT 94
[2024-06-27] MEDS: metoprolol tartrate 50 mg Tablet PO ×2 (08:50→18:04)
[2024-06-27] MEDS: levothyroxine 25 mcg Tablet PO (08:50)
[2024-06-27] MEDS: aspirin 81 mg EC Tablet PO (08:50)
[2024-06-27] MEDS: FUROsemide 10 mg/mL SDV 4mL 40 MG IVP (08:50)
--- NOTE | 2024-06-27 10:08 | PC.SOCIAL ---
IMM Update pg 2 of IMM Updated and reviewed w/ patient. Copy dated, initialed and placed in chart. Copy provided to patient.
--- NOTE | 2024-06-27 11:28 | P.PN_ITS ---
Subjective 2 Subjective: Patient was seen this morning, he is alert to person, not to place, not to time he can follow commands, continues to have stuttering of his words, right sided weakness after his history of CVA, denies any chest pain, shortness of breath persist, but overall his mentation has improved, we discussed his home situation he tells me he does not want to go to a prison, Vitals/I&O/Wt Last Vital Signs Temp 97.5 F L 06/27/24 08:00 Pulse 81 06/27/24 08:00 Resp 17 06/27/24 08:00 BP 124/83 06/27/24 08:00 Pulse Ox 94 06/27/24 08:00 O2 Del Method Room Air 06/27/24 08:00 06/26/24 06/27/24 06/27/24 22:59 06:59 14:59 Intake Total 200 / 200 100 / 100 Output Total 1500 / 4150 2150 / 6300 Balance -1500 / -4150 -1950 / -6100 100 / 100 Weight last 48 hrs Weight 51.301 kg Weight 52.163 kg Weight 72.575 kg Weight 72.575 kg Physical Exam 2 Const: COMMON NORMALS: no acute distress and patient oriented x3 Resp: COMMON NORMALS: normal respiratory effort, No retractions and No use of accessory muscles AUSCULTATION: crackles and wheezes Cardio: COMMON NORMALS: regular rate, regular rhythm, S1 normal heart sound present and S2 normal heart sound present RATE: regular rate RHYTHM: r egular rhythm HEART SOUNDS: S1 normal heart sound present and S2 normal heart sound present GI: COMMON NORMALS: Normal to inspection, nondistended, normoactive bowel sounds present and non-tender Extremity: COMMON NORMALS: no pedal edema Neuro: COMMON NORMALS: patient oriented x3 Psych: COMMON NORMALS: mental status grossly normal Urinary Catheter Management: Alejandre: Cath Placed During This Visit: yes Reason for Continuing Indwelling Catheter: Other Urinary Catheter Date of Insertion: 06/25/24 Urinary Catheter Time of Insertion: 12:08 Data 06/27/24 03:04 06/27/24 03:04 Micro: Microbiology 06/25/24 18:11 Blood Culture - Preliminary Blood NEGATIVE TO DATE 06/25/24 11:53 Blood Culture - Preliminary Blood NEGATIVE TO DATE A&P Assessment and plan (1) Acute encephalopathy: (2) Hypertension: (3) CHF (congestive heart failure): (4) Aspiration pneumonia: Plan Acute encephalopathy, metabolic -Head CT within normal limits - With underlying history of CVA, 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 Continue Rocephin - Neurochecks - NIH stroke scale - Aspiration precautions Concerns for aspiration pneumonia - Crackles and wheezing in all lung gu, right lower lobe pneumonia during last hospitalization - Aspiration precautions, keep n.p.o. - Continue Rocephin - Speech therapy eval, today Concerns for CHF, systolic cardiac echo Severe diffuse hypokinesia of the left ventricule with an ejection fraction of around 25%. Normal LV size. Right ventricle appears to be normal size with mildly diminished ejection fraction. Mildly increased right atrial size. Severely dilated left atrium with volume index as systolic volume index of 68.4 mL/m squared. Thickened mitral valve. Moderate mitral valve regurgitatio. Thickened aortic valve. Mild to moderate aortic valve regurgitation. [id number] tricuspid valve regurgitation. Moderate pulmonary hypertension with an estimated pulmonary artery peak systolic pressure 54 mmHg. Mild pulmonary valve regurgitation. Saline contrast injection revealed no evidence of the right left shunt There is no pericardial effusion. No similar previous studies are available for comparison - Elevated BNP - Patient is -9 L so far -Lasix 40 IV twice daily - Monitor urine output, monitor creatinine History of atrial fibrillation, continue metoprolol NSTEMI -No chest pain complaints -Serial EKGs, serial troponins, telemetry monitoring - EKGs, start troponins, telemetry monitoring Elevated lactic acid, multifactorial, from UTI, aspiration pneumonia Concern for UTI, IV fluids Full code Lovenox for DVT prophylaxis Plan for today, speech therapy eval, advance diet as tolerated continue IV Lasix PDMP PDMP Reviewed: Not Reviewed Attestations 2 Medical Necessity Statement*: Patient requires hospitalization for CHF, UTI, aspiration pneumonia Diagnoses Acute encephalopathy G93.40 Hypertension I10 CHF (congestive heart failure) I50.9 Aspiration pneumonia J69.0
[2024-06-27 11:36] VITALS: BP 109/63; PULSE 73; RESP 18; TEMP 36.4; O2SAT 96
[2024-06-27 16:00] VITALS: BP 121/80; PULSE 104; RESP 18; TEMP 36.6; O2SAT 96
[2024-06-27] MEDS: atorvastatin 40 mg Tablet 80 MG PO (18:04)
[2024-06-27] MEDS: cefTRIAXone 1,000 mg SDV 1000 MG IVP (18:04)
[2024-06-27] MEDS: pantoprazole 40 mg SDV IVP (18:04)
[2024-06-27] MEDS: enoxaparin 40 mg/0.4 mL Syringe SUBCUT (18:05)
[2024-06-27 20:00] VITALS: BP 149/53; PULSE 91; RESP 16; TEMP 36.4; O2SAT 97
[2024-06-28] VITALS (7 sets, daily range): BP systolic 100–135; BP diastolic 57–81; PULSE 78–102; RESP 15–18; TEMP 36.1–36.7; O2SAT 94–98
[2024-06-28 05:10] LABS: Basophils % 0.3 %; Eosinophils # 0.1 10^3/uL (0.0-0.8); Eosinophils % 1.2 %; Hematocrit 42.5 % (37-53); Lymphocytes # 1.4 10^3/uL (0.8-4.8); Lymphocytes % 17.8 %; Mean Corpuscular HGB Conc 31.8 g/dL (30-55); Mean Corpuscular Volume 91.2 fl (82-101); Mean Platelet Volume 10.4 fL (7.4-10.4); Monocytes # 0.6 10^3/uL (0.2-0.9); Monocytes % 7.6 %; Neutrophils # 5.56 10^3/uL (1.8-7.7); Neutrophils % 72.8 %; Nucleated Red Blood Cells % 0 %; Platelet Count 167 10^3/cmm (157-399); Red Blood Count 4.66 10^6/uL (3.85-5.65); White Blood Count 7.63 10^3/uL (3.29-11.43)
[2024-06-28 05:29] LABS: Alanine Aminotransferase 41 U/L (0-41); Albumin Level 2.5 g/dL (3.5-5.2); Alkaline Phosphatase 73 U/L (40-130); Anion Gap 11.3 (5-19); Aspartate Amino Transferase 26 U/L (0-40); Blood Urea Nitrogen 35 mg/dL (8-23); Calcium 8.1 mg/dL (8.5-10.5); Carbon Dioxide 30 mmol/L (22-29); Chloride 105 mmol/L (98-107); Creatinine Clr Calc Pharmacy 33.0347; Glucose 134 mg/dL (65-115); Magnesium 2.1 mg/dL (1.7-2.3); Osmolality Calculated 306 mOsm/kg (285-295); Phosphorus 2.3 mg/dL (2.5-4.5); Potassium 3.3 mmol/L (3.5-5.1); Sodium 143 mmol/L (136-145); Total Bilirubin 0.6 mg/dL (0.15-1.2); Total Protein 5.5 g/dL (6.6-8.7)
[2024-06-28 05:36] LABS: NT Pro B Type Natriuretic Pept 14180 pg/mL (0-450)
[2024-06-28] MEDS: metoprolol tartrate 50 mg Tablet PO ×2 (08:13→17:52)
[2024-06-28] MEDS: FUROsemide 10 mg/mL SDV 4mL 40 MG IVP (08:13)
[2024-06-28] MEDS: aspirin 81 mg EC Tablet PO (08:13)
[2024-06-28] MEDS: levothyroxine 25 mcg Tablet PO (08:13)
--- NOTE | 2024-06-28 16:11 | P.PN_ITS ---
Subjective 2 Subjective: Patient was seen this morning, he is alert oriented to person, to place, not to time, he tells me that shortness of breath is improving, Vitals/I&O/Wt Last Vital Signs Temp 97.0 F L 06/28/24 11:25 Pulse 78 06/28/24 11:25 Resp 16 06/28/24 11:25 BP 100/57 06/28/24 11:25 Pulse Ox 98 06/28/24 11:25 O2 Del Method Room Air 06/28/24 11:25 06/28/24 06/28/24 06/28/24 06:59 14:59 22:59 Intake Total 960 / 960 Output Total 200 / 1250 800 / 800 Balance -200 / -670 160 / 160 Weight last 48 hrs Weight 43.817 kg Weight 42.638 kg Weight 51.301 kg Physical Exam 2 Const: COMMON NORMALS: no acute distress and patient oriented x3 Resp: COMMON NORMALS: normal respiratory effort, No retractions and No use of accessory muscles AUSCULTATION: crackles and wheezes Cardio: COMMON NORMALS: regular rate, regular rhythm, S1 normal heart sound present and S2 normal heart sound present RATE: regular rate RHYTHM: r egular rhythm HEART SOUNDS: S1 normal heart sound present and S2 normal heart sound present GI: COMMON NORMALS: Normal to inspection, nondistended, normoactive bowel sounds present and non-tender Extremity: NARRATIVE EXTREMITY EXAM: 1+ edema Neuro: COMMON NORMALS: patient oriented x3 Psych: COMMON NORMALS: mental status grossly normal Urinary Catheter Management: Alejandre: Cath Placed During This Visit: yes Reason for Continuing Indwelling Catheter: Acute Urinary Retention or Obstruction Urinary Catheter Date of Insertion: 06/25/24 Urinary Catheter Time of Insertion: 12:08 Data 06/28/24 04:52 06/28/24 04:52 A&P Assessment and plan (1) Acute encephalopathy: (2) Hypertension: (3) CHF (congestive heart failure): (4) Aspiration pneumonia: Plan Acute encephalopathy, metabolic, resolving -Head CT within normal limits - With underlying history of CVA, 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 Continue Rocephin - Neurochecks - NIH stroke scale - Aspiration precautions Concerns for aspiration pneumonia - Crackles and wheezing in all lung gu, right lower lobe pneumonia during last hospitalization - Aspiration precautions, dysphagia diet - Continue Rocephin - Speech therapy eval, today Concerns for CHF, systolic cardiac echo Severe diffuse hypokinesia of the left ventricule with an ejection fraction of around 25%. Normal LV size. Right ventricle appears to be normal size with mildly diminished ejection fraction. Mildly increased right atrial size. Severely dilated left atrium with volume index as systolic volume index of 68.4 mL/m squared. Thickened mitral valve. Moderate mitral valve regurgitatio. Thickened aortic valve. Mild to moderate aortic valve regurgitation. [id number] tricuspid valve regurgitation. Moderate pulmonary hypertension with an estimated pulmonary artery peak systolic pressure 54 mmHg. Mild pulmonary valve regurgitation. Saline contrast injection revealed no evidence of the right left shunt There is no pericardial effusion. No similar previous studies are available for comparison - Elevated BNP - Patient is -9 L so far -Lasix 40 IV daily - Monitor urine output, monitor creatinine History of atrial fibrillation, continue metoprolol NSTEMI -No chest pain complaints -Serial EKGs, serial troponins, telemetry monitoring - EKGs, start troponins, telemetry monitoring Elevated lactic acid, multifactorial, from UTI, aspiration pneumonia Concern for UTI, Rocephin Full code Lovenox for DVT prophylaxis Plan for today, speech therapy eval, advance diet as tolerated continue IV Lasix, IV antibiotics PDMP PDMP Reviewed: Not Reviewed Attestations 2 Medical Necessity Statement*: Patient presents with CHF, aspiration pneumonia Diagnoses Acute encephalopathy G93.40 Hypertension I10 CHF (congestive heart failure) I50.9 Aspiration pneumonia J69.0
[2024-06-28] MEDS: enoxaparin 40 mg/0.4 mL Syringe SUBCUT (17:51)
[2024-06-28] MEDS: pantoprazole 40 mg SDV IVP (17:51)
[2024-06-28] MEDS: cefTRIAXone 1,000 mg SDV 1000 MG IVP (17:51)
[2024-06-28] MEDS: atorvastatin 40 mg Tablet 80 MG PO (17:52)
[2024-06-29 04:00] VITALS: BP 143/80; PULSE 65; RESP 16; TEMP 36.3; O2SAT 97
[2024-06-29 05:09] LABS: Basophils % 0.2 %; Eosinophils # 0.1 10^3/uL (0.0-0.8); Eosinophils % 1.4 %; Hematocrit 44.4 % (37-53); Lymphocytes # 1.4 10^3/uL (0.8-4.8); Lymphocytes % 16.9 %; Mean Corpuscular Hemoglobin 29.2 pg (27-33); Mean Corpuscular Volume 91.4 fl (82-101); Monocytes # 0.6 10^3/uL (0.2-0.9); Monocytes % 7.7 %; Neutrophils # 5.94 10^3/uL (1.8-7.7); Neutrophils % 73.1 %; Nucleated Red Blood Cells % 0 %; Platelet Count 181 10^3/cmm (157-399); Red Blood Count 4.86 10^6/uL (3.85-5.65); Red Cell Distribution Width 15.9 % (12.1-15.1); White Blood Count 8.13 10^3/uL (3.29-11.43)
[2024-06-29 05:28] LABS: Alanine Aminotransferase 45 U/L (0-41); Albumin Level 2.9 g/dL (3.5-5.2); Alkaline Phosphatase 89 U/L (40-130); Aspartate Amino Transferase 38 U/L (0-40); Blood Urea Nitrogen 32 mg/dL (8-23); Calcium 8.4 mg/dL (8.5-10.5); Carbon Dioxide 31 mmol/L (22-29); Chloride 103 mmol/L (98-107); Globulin 3.1 g/dL (1.3-4.6); Glucose 124 mg/dL (65-115); Osmolality Calculated 306 mOsm/kg (285-295); Phosphorus 2.1 mg/dL (2.5-4.5); Sodium 144 mmol/L (136-145); Total Bilirubin 0.6 mg/dL (0.15-1.2)
[2024-06-29 05:29] LABS: Anion Gap 13.3 (5-19); Potassium 3.3 mmol/L (3.5-5.1)
[2024-06-29 05:37] LABS: NT Pro B Type Natriuretic Pept 12737 pg/mL (0-450)
[2024-06-29] MEDS: levothyroxine 25 mcg Tablet PO (07:44)
[2024-06-29] MEDS: aspirin 81 mg EC Tablet PO (07:44)
[2024-06-29] MEDS: metoprolol tartrate 50 mg Tablet PO (07:44)
[2024-06-29] MEDS: FUROsemide 10 mg/mL SDV 4mL 40 MG IVP (07:44)
[2024-06-29] MEDS: potassium chloride ER 20 mEq Tablet 40 MEQ PO (07:50)
[2024-06-29 08:00] VITALS: BP 125/72; PULSE 68; RESP 16; TEMP 36.6; O2SAT 95
[2024-06-29] MEDS: phosphorus 250 mg Tablet 500 MG PO (08:43)
--- NOTE | 2024-06-29 09:44 | PC.SOCIAL ---
IMM Update pg 2 of IMM Updated and reviewed w/ patient. Copy provided and copy dated, initialed and placed in chart.
--- NOTE | 2024-06-29 10:27 | P.DS_ITS ---
Discharge Providers Date of Admission: 06/25/24 14:29 Date of Discharge: June 29, 2024 Attending Provider at Admission: Danilo Moore MD Attending Provider at Discharge: Danilo Moore MD Primary Care Provider: Saurabh Magaña DO Diagnoses at Discharge Discharge Diagnosis (1) Acute encephalopathy: Status: Acute (2) Hypertension: Status: Acute (3) CHF (congestive heart failure): Status: Acute (4) Aspiration pneumonia: Status: Acute Reason for Visit Reason for Visit: ams; cough Hospital Course Hospital Course Luis Morales is a 89 year old male with a past medical history of systolic CHF, atrial fibrillation, 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 Currently was hospitalized for respiratory failure secondary to pneumonia, with CHF. Currently patient is alert to person, not to place, to time, he can follow some commands, frequently stutters his words, but easily becomes confused, does report cough, shortness of breath, no family members at bedside for history taking, denies any chest pain, tells me that he lives at his son's house, does not know the address, Patient was admitted to [facility] for acute encephalopathy, metabolic, head CT within normal limits, likely sec to UTI, condition overall clinically improved For his history of history of acute left paramedian frontal cerebral cortex infarct 05/19/2024, with history of additional chronic numerous lacunar 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 - Continues to have right-sided upper and lower extremity weakness, at times word finding difficulty, stuttering of his words For concerns for aspiration pneumonia, received broad-spectrum antibiotic therapy, will be managed on dysphagia level 4 diet, extremely thickened For CHF exacerbation, systolic, EF 25%, received inpatient IV diuresis -11 L, discharged on Lasix therapy History of atrial fibrillation, not on anticoagulation therapy, as patient declines, patient understands morbidity and mortality associated with CVA, as declined anticoagulant therapy NSTEMI, no chest pain complaints, show EKGs/troponins, telemetry monitoring For UTI, received IV antibiotics, overall clinically improved, will be discharged on p.o. antibiotics Due to the patient's right sided weakness, from history of CVA, deconditioning, protein calorie malnutrition, BMI 14.7, with underlying systolic heart failure, discharged on hospice Physical Exam Const: COMMON NORMALS: no acute distress ORIENTATION/CONSCIOUSNESS: Yes awake, Yes oriented to person and Yes oriented to place; not oriented to time Resp: COMMON NORMALS: normal respiratory effort, No retractions, No use of accessory muscles and clear to auscultation bilaterally AUSCULTATION: clear to auscultation bilaterally Cardio: COMMON NORMALS: regular rate, regular rhythm, S1 normal heart sound present and S2 normal heart sound present RATE: regular rate RHYTHM: regular rhythm HEART SOUNDS: S1 normal heart sound present and S2 normal heart sound present GI: COMMON NORMALS: Normal to inspection, nondistended, normoactive bowel sounds present and non-tender Extremity: COMMON NORMALS: no pedal edema Neuro: SENSORIUM/ORIENTATION: Yes oriented to person, Yes oriented to place and No oriented to time OTHER: Right upper right lower extremity weakness, flaccid paralysis Word finding difficulty, stuttering of his words Urinary Catheter Management: Alejandre: Cath Placed During This Visit: yes Reason for Continuing Indwelling Catheter: Acute Urinary Retention or Obstruction Urinary Catheter Date of Insertion: 06/25/24 Urinary Catheter Time of Insertion: 12:08 Discharge Data Studies Completed and Pending Completed Studies During Hospitalization Category Date Time Status CT head wo con* [id number] Stat Cat Scan 06/25/24 11:41 Completed XR chest 1V portable [id number] Stat Exams 06/25/24 11:41 Completed Pending at discharge Category Date Time Status Blood Culture Routine Lab 06/25/24 18:11 Results Complete Blood Count w/Auto AM LABS Lab 06/30/24 04:00 Ordered Complete Blood Count w/Auto AM LABS Lab 07/01/24 04:00 Ordered Comprehensive Metabolic Panel AM LABS Lab 06/30/24 04:00 Ordered Comprehensive Metabolic Panel AM LABS Lab 07/01/24 04:00 Ordered Magnesium AM LABS Lab 06/30/24 04:00 Ordered Magnesium AM LABS Lab 07/01/24 04:00 Ordered Phosphorus AM LABS Lab 06/30/24 04:00 Ordered Phosphorus AM LABS Lab 07/01/24 04:00 Ordered Radiology Impressions Chest X-Ray 06/25/24 11:41 IMPRESSION: 1. No acute pulmonary finding 2. Cardiomegaly. Head CT 06/25/24 11:41 IMPRESSION: 1. No acute intracranial finding 2. Sinus disease as described. 3. Likely severe small-vessel ischemic changes. 4. Cortical atrophy is present. 5. Additional findings as described. Laboratory Results WBC 8.13 10^3/uL (3.29-11.43) 06/29/24 05:00 RBC 4.86 10^6/uL (3.85-5.65) 06/29/24 05:00 Hgb 14.20 g/dL (11.27-16.99) 06/29/24 05:00 Hct 44.4 % (37-53) 06/29/24 05:00 MCV 91.4 fl (82-101) 06/29/24 05:00 MCH 29.2 pg (27-33) 06/29/24 05:00 MCHC 32.0 g/dL (30-55) 06/29/24 05:00 RDW 15.9 % (12.1-15.1) H 06/29/24 05:00 Plt Count 181 10^3/cmm (157-399) 06/29/24 05:00 MPV 10.0 fL (7.4-10.4) 06/29/24 05:00 Neut % (Auto) 73.1 % 06/29/24 05:00 Lymph % (Auto) 16.9 % 06/29/24 05:00 [place] % (Auto) 7.7 % 06/29/24 05:00 Eos % (Auto) 1.4 % 06/29/24 05:00 Baso % (Auto) 0.2 % 06/29/24 05:00 Neut # (Auto) 5.94 10^3/uL (1.8-7.7) 06/29/24 05:00 Lymph # (Auto) 1.4 10^3/uL (0.8-4.8) 06/29/24 05:00 [place] # (Auto) 0.6 10^3/uL (0.2-0.9) 06/29/24 05:00 Eos # (Auto) 0.1 10^3/uL (0.0-0.8) 06/29/24 05:00 Baso # (Auto) 0.0 10^3/uL (0.0-0.1) 06/29/24 05:00 Nucleated RBC % (auto) 0 % 06/29/24 05:00 Nucleated RBCs # 0.0 /100WBC 06/29/24 05:00 PT 15.70 SECONDS (12.1-14.9) H 06/25/24 11:53 INR 1.17 (0.8-1.2) 06/25/24 11:53 Sodium 144 mmol/L (136-145) 06/29/24 05:00 Potassium 3.3 mmol/L (3.5-5.1) L 06/29/24 05:00 Chloride 103 mmol/L (98-107) 06/29/24 05:00 Carbon Dioxide 31 mmol/L (22-29) H 06/29/24 05:00 Anion Gap 13.3 (5-19) 06/29/24 05:00 BUN 32 mg/dL (8-23) H 06/29/24 05:00 Creatinine 1.0 mg/dL (0.7-1.2) 06/29/24 05:00 GFR Calculation Not Reportable 06/29/24 05:00 Glucose 124 mg/dL (65-115) H 06/29/24 05:00 POC Glucose 160 mg/dL (70-110) H 06/25/24 20:38 Calculated Osmolality 306 mOsm/kg (285-295) H 06/29/24 05:00 Lactic Acid 2.3 mmol/L (0.5-2.2) H 06/25/24 16:06 Lactic Acid (Sepsis) 3.5 mmol/L (0.5-2.2) H 06/25/24 18:21 Calcium 8.4 mg/dL (8.5-10.5) L 06/29/24 05:00 Phosphorus 2.1 mg/dL (2.5-4.5) L 06/29/24 05:00 Magnesium 2.0 mg/dL (1.7-2.3) 06/29/24 05:00 Total Bilirubin 0.6 mg/dL (0.15-1.2) 06/29/24 05:00 AST 38 U/L (0-40) 06/29/24 05:00 ALT 45 U/L (0-41) H 06/29/24 05:00 Alkaline Phosphatase 89 U/L (40-130) 06/29/24 05:00 Troponin T Baseline 84 ng/L (0-15) H 06/25/24 16:06 Troponin T 120 Minute 88.67 ng/L (0-15) H 06/25/24 18:21 Delta Troponin T 4.67 ABS# (0-10) 06/25/24 18:21 Troponin T Hi Sens 6Hr 79.67 ng/L (0-15) H 06/25/24 21:30 Troponin T Hi Sens 6Hr Delta -4.33 ng/L (0-12) L 06/25/24 21:30 C-Reactive Protein 15.2 mg/L (0.0-4.9) H 06/25/24 16:06 NT-Pro-B Natriuret Pep 34574 pg/mL (0-450) H 06/29/24 05:00 Total Protein 6.0 g/dL (6.6-8.7) L 06/29/24 05:00 Albumin 2.9 g/dL (3.5-5.2) L 06/29/24 05:00 Globulin 3.1 g/dL (1.3-4.6) 06/29/24 05:00 Procalcitonin 0.14 ng/mL (0-0.5) 06/25/24 16:06 TSH 3.93 uIU/mL (0.27-4.20) 06/25/24 11:53 TSH 3.97 uIU/mL (0.27-4.20) 06/25/24 11:53 Urine Color Dark yellow (Yellow) A 06/25/24 12:05 Urine Appearance Slightly cloudy (CLEAR) 06/25/24 12:05 Urine pH 5 (5-7) 06/25/24 12:05 Ur Specific [place] 1.027 (1.005-1.030) 06/25/24 12:05 Urine Protein 2+ (Negative) H 06/25/24 12:05 Urine Glucose (UA) Norm (Normal) 06/25/24 12:05 Urine Ketones Negative (Negative) 06/25/24 12:05 Urine Blood 1+ (Negative) H 06/25/24 12:05 Urine Nitrate Negative (Negative) 06/25/24 12:05 Urine Bilirubin Neg (Negative) 06/25/24 12:05 Urine Urobilinogen 1.0 mg/dL (Negative) 06/25/24 12:05 Ur Leukocyte Esterase Negative (Negative) 06/25/24 12:05 Urine RBC 0-4 /hpf (0-2) H 06/25/24 12:05 Urine WBC 0-4 /hpf (0-5) H 06/25/24 12:05 Ur Squamous Epith Cells None /hpf (0-5) 06/25/24 12:05 Calcium Oxalate Crystal 5-10 /hpf H 06/25/24 12:05 Amorphous Sediment Not Reportable 06/25/24 12:05 Urine Bacteria 1+ /hpf (NONE) H 06/25/24 12:05 Hyaline Casts 15-25 /lpf H 06/25/24 12:05 Urine Mucus 1+ /hpf 06/25/24 12:05 Vitals Last Vital Signs Temp 97.8 F 06/29/24 08:00 Pulse 68 06/29/24 08:00 Resp 16 06/29/24 08:00 BP 125/72 06/29/24 08:00 Pulse Ox 95 06/29/24 08:00 O2 Del Method Room Air 06/29/24 08:00 Discharge Plan Discharge Patient Disposition: Hospice - Home Condition: Stable Prescriptions: New furosemide [Lasix] 40 mg tablet 40 mg PO DAILY 30 Days Qty: 30 0RF potassium chloride [Klor-Con 10] 10 mEq tablet extended release 20 meq PO DAILY 30 Days Qty: 60 0RF amoxicillin-pot clavulanate 875-125 mg tablet 1 tab PO BID 5 Days Qty: 10 0RF Continued morphine concentrate 100 mg/5 mL (20 mg/mL) solution 20 mg sublingual DIRECTED PRN (Reason: Pain/SOB) 14 Days Qty: 30 0RF Rx Instructions: 0.25ml-1ml q1H PRN may increase to 0.5ml-1ml Q1H PRN bisacodyl 10 mg suppository 10 mg CO DAILY PRN (Reason: constipation) Qty: 5 0RF Rx Instructions: 1 suppository per rectum every day PRN for constipation. hydroxyzine HCl 25 mg tablet 25 mg PO TID PRN (Reason: Itching) Qty: 5 0RF Rx Instructions: Take 1 table by mouth as needed three times a day for itching atropine 1 % drops 4 drp sublingual Q4H PRN (Reason: secretions) Qty: 5 0RF Rx Instructions: 4 drops SL q 4 hours PRN for terminal congestion/excessive secretions. ondansetron 4 mg tablet,disintegrating 4 mg translingual Q4H PRN (Reason: nausea) Qty: 5 0RF Rx Instructions: Dissolve 1 tablet under tongue every 4 hours PRN for nausea lorazepam 2 mg/mL concentrate 2 mg sublingual Q4H PRN (Reason: Anxiety/Seizure) Qty: 30 0RF Rx Instructions: 0.25ml-1ml q4H PRN Anxiety/Seizure Start 0.25ml may increase to 0.5ml-1ml q4H aspirin [Nevaeh Low Dose Aspirin] 81 mg Tablet,Delayed Release (Dr/Ec) 81 mg PO DAILY atorvastatin 80 mg Tablet 80 mg PO QPM levothyroxine 25 mcg Tablet 25 mcg PO DAILY metoprolol tartrate 50 mg Tablet 50 mg PO BID ipratropium-albuterol 0.5 mg-3 mg(2.5 mg base)/3 mL Solution For Nebulization 3 ml inhalation Q6H.RESP PRN (Reason: shortness of breath) 15 Days Qty: 150 0RF Discontinued diphenhydramine HCl 25 mg tablet 25 mg PO Q4H Qty: 5 0RF Rx Instructions: Take one tablet by mouth every 4 hours as needed for allergic reaction including: Rash and/or Itching Discharge Orders: Discharge Order (Routine); Ordered 06/29/24 Ordered By: Danilo Moore Referrals: [facility] ([facility]) [Outside] Saurabh Magaña DO [Primary Care Provider, Family Practice] Discharge Diet: Cardiac Discharge Activity: Resume usual activity Patient Instructions: Furosemide (By mouth) (Lasix), Potassium Chloride (By mouth), Amoxicillin/Clavulanate Potassium (By mouth), Congestive Heart Failure, Altered Mental Status (ED), Opioid Safety Discharge Attestations Time Spent in Discharge Care*: greater than 30 min Quality Metrics Clinical Quality Measures [ No reported AMI, CVA or VTE this stay] Coding Level of Care Code 57310 Total time (in minutes) for Discharge: 45 Diagnoses Acute encephalopathy G93.40 Hypertension I10 CHF (congestive heart failure) I50.9 Aspiration pneumonia J69.0
[2024-06-29 11:51] VITALS: BP 111/68; PULSE 76; RESP 17; TEMP 36.4; O2SAT 98
--- NOTE | 2024-06-29 13:44 | PC.NURSE ---
D/C pending EMS transport.
[2024-06-29 15:48] VITALS: BP 124/75; PULSE 84; RESP 18; TEMP 36.6; O2SAT 93
[2024-06-29 16:49] VITALS: BP 124/74; PULSE 84; O2SAT 97
--- NOTE | 2024-06-29 16:53 | PC.NURSE ---
This nurse called patients son,Gonzalo, and informed him that pt just left via EMS. This nurse asked Gonzalo to call hospice nurse as I do not have a contact number for them.
== END 2024-06-29 16:50 | disposition hospice, home (50) | DRG 280 ==
LOC: ER 15:29 → MEDSURG 15:52
PROVIDERS: Internal Medicine; Admitting Provider Family Medicine; Emergency Provider Emergency Medicine; PCP Electrodiagnostic Medicine; Visit Provider Family Medicine
DX: I11.0 Hypertensive heart disease with heart failure (principal); G93.41 Metabolic encephalopathy; I21.4 Non-ST elevation (NSTEMI) myocardial infarction; I50.23 Acute on chronic systolic (congestive) heart failure; J69.0 Pneumonitis due to inhalation of food and vomit; I69.951 Hemiplegia and hemiparesis following unspecified cerebrovascular disease affecting right dominant side; N39.0 Urinary tract infection, site not specified; E46 Unspecified protein-calorie malnutrition; Z68.1 Body mass index [BMI] 19.9 or less, adult; I48.91 Unspecified atrial fibrillation; I69.991 Dysphagia following unspecified cerebrovascular disease; R13.10 Dysphagia, unspecified; R33.9 Retention of urine, unspecified; E03.9 Hypothyroidism, unspecified; I08.3 Combined rheumatic disorders of mitral, aortic and tricuspid valves; Z79.82 Long term (current) use of aspirin
CPT/HCPCS: 36415; 36416; 51702; 70450; 71045; 80048; 80053; 81001; 82962; 83605; 83735; 83880; 84100; 84145; 84443; 84484; 85025; 85610; 86140; 87040; 92507; 92523; 92526; 92610; 93005; 94664; 96372; 96374; 99285; 99291; J0696; J1650; J1938; J1940; J2470; J3475; J3480; J3490; J9999